=== PATIENT | female | born 1965 | race Caucasian/White ===

== ENCOUNTER → 2017-11-08 14:02 | Outpatient (CLI) | payer OTHER, SELFPAY ==
[2017-11-08 15:51] LABS: ALB/GLOB Ratio 1.1 RATIO (0.9-2.4); AST(SGOT) 43 U/L (15-37); Alanine Aminotransfer ALT/SGPT 55 U/L (12-78); Albumin, Serum 3.7 g/dL (3.4-5.0); Alkaline Phosphatase 56 U/L (45-117); Anion Gap 10 (5-15); BUN 10 mg/dL (7-18); BUN/Creat Ratio 10.3 RATIO (10-20); Calcium,Total 9.1 mg/dL (8.5-10.1); Chloride 102 mmol/L (98-107); Creatinine, Serum 0.97 mg/dL (0.55-1.02); EST Glomerular Filtration Rate 64 mL/min (>60); Est Glom Filt Rate - Afr Amer 77 mL/min (>60); Globulin 3.5 g/dL (2.2-4.2); Glucose 96 mg/dL (70-110); Potassium 4.1 mmol/L (3.5-5.1); Protein, Total 7.2 g/dL (6.4-8.2); Sodium Level 138 mmol/L (136-145)
[2017-11-08 15:55] LABS: Absolute Lymphocyte Count 2.75 X10^3/ul (0.83-4.51); Absolute Neutrophil Count 3.7 X10^3/uL (2.0-7.7); Basophil# 0.12 X10^3/uL; Basophil% 1.5 % (0-1); Eosinophils% 3.8 % (0-5); Hematocrit 44.1 % (37-47); Hemoglobin 14.9 g/dl (12.0-15.0); Lymphocyte # 2.75 X10^3/ul (4.0); Lymphocyte % 34.9 % (19-41); Mean Corp Hgb Conc 33.8 g/gl (32-36); Mean Corpuscular Hgb 32.7 pg (27.0-32.0); Mean Corpuscular Volume 96.9 fL (81-99); Mean Platelet Vol. 12.5 fl (6.2-12.0); Monocyte# 0.96 X10^3/uL; Monocyte% 12.2 % (0-10); Neutrophil # 3.71 X10^3/uL (2.7-7.7); Neutrophil % 47.1 % (47-70); Platelet Count 147 K/mm3 (150-450); RBC Distribution Width CV 12.8 % (11.6-14.6); RBC Distribution Width SD 44.3 fl (35.1-43.9); Red Blood Count 4.55 M/mm3 (4.2-5.4); White Blood Count 7.9 K/mm3 (4.4-11.0)
[2017-11-08 15:59] LABS: POSITIVE COUNT NO; POSITIVE DIFFERENTIAL NO; POSITIVE MORPHOLOGY NO
== END ==
PROVIDERS: Family Provider Family Medicine; PCP Family Medicine; Visit Provider Internal Medicine Rheumatology
DX: M06.00 Rheumatoid arthritis without rheumatoid factor, unspecified site (principal); M18.11 Unilateral primary osteoarthritis of first carpometacarpal joint, right hand; M47.897 Other spondylosis, lumbosacral region; K76.0 Fatty (change of) liver, not elsewhere classified; Z79.899 Other long term (current) drug therapy
CPT/HCPCS: 36415; 80053; 85025

== ENCOUNTER → 2017-12-04 07:15 | Outpatient (CLI) | payer OTHER, SELFPAY ==
--- NOTE | 2017-12-04 10:17 | NEURO ---
NCS and/or EMG Patient Report Ordering Doctor: Stephon Wang DATE OF SERVICE: 12/04/17 This is a left upper extremity EMG and nerve conduction study performed on this 52-year-old female who had carpal tunnel surgery and thumb joint replacement surgery 2 years ago. She now has new nonspecific weakness and abnormal sensations in her left upper extremity which does not involve her hand. Symptoms have been present since approximately March 2017. Left upper extremity sensory and motor nerve conduction studies performed demonstrating mild prolongation of the median motor distal latency with preservation of amplitude and conduction velocity. Median sensory response is normal. The ulnar motor and sensory and radial sensory responses are normal. The median and ulnar F waves are normal. Left upper extremity needle electromyography is performed. Muscles evaluated included the first dorsal interosseous, abductor pollicis brevis, brachioradialis, biceps, triceps and deltoid muscles. All muscles demonstrated normal insertional activity with absence of pathologic spontaneous activity. Motor unit potential recruitment pattern and amplitude was normal in all muscles tested. Impression: There is mild prolongation of the median motor distal latency at the wrist consistent with carpal tunnel syndrome however this appears to be asymptomatic and is likely a chronic finding. There is no evidence of radiculopathy and the study is otherwise normal.
== END ==
PROVIDERS: Family Provider Family Medicine; PCP Family Medicine; Visit Provider Family Medicine
DX: R20.2 Paresthesia of skin (principal)
CPT/HCPCS: 95886; 95910

== ENCOUNTER → 2018-05-06 07:35 | Outpatient (CLI) | payer OTHER, SELFPAY ==
[2018-05-06 08:23] LABS: Absolute Lymphocyte Count 2.62 X10^3/ul (0.83-4.51); Absolute Neutrophil Count 3.7 X10^3/uL (2.0-7.7); Basophil# 0.05 X10^3/uL; Basophil% 0.7 % (0-1); Eosinophil# 0.14 X10^3/uL; Eosinophils% 1.9 % (0-5); Hematocrit 45.4 % (37-47); Hemoglobin 15.2 g/dl (12.0-15.0); Lymphocyte # 2.62 X10^3/ul (4.0); Lymphocyte % 35.8 % (19-41); Mean Corp Hgb Conc 33.5 g/gl (32-36); Mean Corpuscular Volume 98.5 fL (81-99); Mean Platelet Vol. 11.7 fl (6.2-12.0); Monocyte# 0.77 X10^3/uL; Monocyte% 10.5 % (0-10); Neutrophil # 3.71 X10^3/uL (2.7-7.7); Neutrophil % 50.7 % (47-70); Platelet Count 185 K/mm3 (150-450); RBC Distribution Width CV 13.6 % (11.6-14.6); Red Blood Count 4.61 M/mm3 (4.2-5.4); White Blood Count 7.3 K/mm3 (4.4-11.0)
[2018-05-06 08:24] LABS: POSITIVE COUNT NO; POSITIVE DIFFERENTIAL NO; POSITIVE MORPHOLOGY NO
[2018-05-06 08:59] LABS: AST(SGOT) 65 U/L (15-37); Alanine Aminotransfer ALT/SGPT 81 U/L (13-56); Albumin, Serum 3.8 g/dL (3.2-5.0); Alkaline Phosphatase 65 U/L (45-117); Anion Gap 9 (5-15); BUN 18 mg/dL (7-18); BUN/Creat Ratio 13.5 RATIO (10-20); Calcium,Total 9.6 mg/dL (8.5-10.1); Chloride 104 mmol/L (98-107); Creatinine, Serum 1.33 mg/dL (0.55-1.02); EST Glomerular Filtration Rate 44 mL/min (>60); Est Glom Filt Rate - Afr Amer 54 mL/min (>60); Globulin 3.7 g/dL (2.2-4.2); Glucose 147 mg/dL (74-106); Potassium 4.2 mmol/L (3.5-5.1); Protein, Total 7.5 g/dL (6.4-8.2); Sodium Level 139 mmol/L (136-145)
== END ==
PROVIDERS: Family Provider Family Medicine; PCP Family Medicine; Visit Provider Internal Medicine Rheumatology
DX: M06.00 Rheumatoid arthritis without rheumatoid factor, unspecified site (principal); K76.0 Fatty (change of) liver, not elsewhere classified; M18.11 Unilateral primary osteoarthritis of first carpometacarpal joint, right hand; M47.897 Other spondylosis, lumbosacral region; K21.0 Gastro-esophageal reflux disease with esophagitis; G47.33 Obstructive sleep apnea (adult) (pediatric); E11.9 Type 2 diabetes mellitus without complications; I10 Essential (primary) hypertension; E03.9 Hypothyroidism, unspecified; R51 Headache; Z79.899 Other long term (current) drug therapy
CPT/HCPCS: 36415; 80053; 85025

== ENCOUNTER 2018-07-09 12:06 | Observation (INO) | payer OTHER, SELFPAY ==
[2018-07-09] VITALS (12 sets, daily range): BP systolic 112–141; BP diastolic 67–119; PULSE 68–90; RESP 16–18; TEMP 36.6–37; O2SAT 94–99; BMI 43.0; BMI 43.1; BMI 42.7
--- NOTE | 2018-07-09 12:29 | EKG12_ITS ---
Test Reason : NEURO SYMPTOMS Blood Pressure : / mmHG Vent. Rate : 096 BPM Atrial Rate : 096 BPM P-R Int : 164 ms QRS Dur : 076 ms QT Int : 326 ms P-R-T Axes : 040 036 -15 degrees QTc Int : 411 ms Normal sinus rhythm Nonspecific T wave abnormality Abnormal ECG Confirmed by RONNELL LIMON, REESE ([id number]), city editor KEVAN JACOBS ([id number]) on 07/11/2018 1:53:05 PM Referred By: NOAH Confirmed By:REESE REYNAGA MD
--- NOTE | 2018-07-09 12:29 | CT_ITS ---
STUDY: CT BRAIN WITHOUT CONTRAST REASON FOR EXAM: Female, 52 years old. Weakness. Right facial droop. RADIATION DOSAGE (If Supplied By Facility): CTDIvol = ( 44.99 ) mGy, DLP = ( 796.11 ) mGycm TECHNIQUE: Transaxial CT imaging of the brain was performed without administration of intravenous contrast material. Individualized dose optimization techniques were used for this CT. COMPARISON: None. FINDINGS: Normal soft tissue structures. Normal calvarium. Normal size ventricles and extra-axial spaces for the patient's age. There is a 1.2 cm x 0.7 cm focal hypodensity in the posterior medial aspect of the right temporal lobe. This may represent a focal area of ischemia. Correlation with MRI is recommended for further evaluation. Normal basal ganglia and thalami. Normal brainstem. Normal cerebellum. There is no intracranial hemorrhage. There are no findings of an acute ischemic infarction. Normal visualized paranasal sinuses. CT/Brain/Head without Contrast IMPRESSION: Focal area of decreased attenuation in the posteromedial aspect of the right temporal lobe as described. Correlation with MRI is recommended for further evaluation. Electronically Signed: Primitivo Pérez MD at 13:01 EDT Tel [phone], Service support ,
[2018-07-09 12:42] LABS: Absolute Lymphocyte Count 1.64 X10^3/ul (0.83-4.51); Absolute Neutrophil Count 3.6 X10^3/uL (2.0-7.7); Basophil# 0.07 X10^3/uL; Basophil% 1.2 % (0-1); Eosinophil# 0.05 X10^3/uL; Eosinophils% 0.8 % (0-5); Hematocrit 46.2 % (37-47); Hemoglobin 15.8 g/dl (12.0-15.0); Lymphocyte # 1.64 X10^3/ul (4.0); Lymphocyte % 27.4 % (19-41); Mean Corp Hgb Conc 34.2 g/gl (32-36); Mean Corpuscular Hgb 33.6 pg (27.0-32.0); Mean Corpuscular Volume 98.3 fL (81-99); Mean Platelet Vol. 11.3 fl (6.2-12.0); Monocyte# 0.61 X10^3/uL; Monocyte% 10.2 % (0-10); Neutrophil # 3.59 X10^3/uL (2.7-7.7); Neutrophil % 59.9 % (47-70); Platelet Count 167 K/mm3 (150-450); RBC Distribution Width CV 12.6 % (11.6-14.6); RBC Distribution Width SD 44.7 fl (35.1-43.9)
[2018-07-09 12:46] LABS: POSITIVE COUNT NO; POSITIVE DIFFERENTIAL NO; POSITIVE MORPHOLOGY NO
--- NOTE | 2018-07-09 12:46 | RAD_ITS ---
STUDY: X-RAY CHEST REASON FOR EXAM: Female, 52 years old. Weakness. Left facial droop. TECHNIQUE: Single AP portable view of the chest. COMPARISON: Comparison is made with prior study dated October 22, 2013. FINDINGS: EKG electrodes are seen. Stable blunting of the right costophrenic angle with minimal right basilar atelectasis. This is unchanged. There is no demonstrated pleural abnormality. Normal size heart. Normal mediastinum and yandel. Normal visualized pulmonary arteries. There is atherosclerotic tortuosity of the aortic arch and descending thoracic aorta. Normal visualized thoracic spine. Normal visualized ribs, clavicles, and shoulders. There is no demonstrated abnormality of the visualized soft tissue structures of the upper abdomen. RAD/Chest 1 View IMPRESSION: Stable pleural parenchymal changes at the right lung base. Electronically Signed: Primitivo Pérez MD at 13:02 EDT Tel [phone], Service support ,
[2018-07-09 12:52] LABS: Partial Thromboplast Time 26.7 Seconds (24.1-36.2); Prothrombin Time (Protime)PT. 12.7 SECONDS (11.7-14.9)
[2018-07-09 12:59] LABS: Anion Gap 8 (5-15); BUN 15 mg/dL (7-18); BUN/Creat Ratio 12.1 RATIO (10-20); Chloride 106 mmol/L (98-107); Creatinine, Serum 1.24 mg/dL (0.55-1.02); EST Glomerular Filtration Rate 48 mL/min (>60); Est Glom Filt Rate - Afr Amer 58 mL/min (>60); Estimated Creatinine Clearance 51.61 ml/min; Glucose 122 mg/dL (74-106); Potassium 4.4 mmol/L (3.5-5.1); Sodium Level 137 mmol/L (136-145)
--- NOTE | 2018-07-09 13:43 | ED.VISSUMM ---
- ER Visit Summary Date of Service: 07/09/18 Chief Complaint: Abnormal sensations History of Present Illness: The patient is a 52 F referred to the emergency department for possible stroke. At around 9-930 this morning, the patient was getting coffee at work very she says her neck dropped. It sounds like her neck flexed down spontaneously. She then complained of some abnormal sensations to her forehead in the midline. She also feels fullness to her face. Her PCP called and said that he was concerned for some right sided facial droop. Patient says she never had this before. Nothing seemed to bring it on or make it worse. Nothing seems to make it better. She has a history of high blood sugars but was not formally diagnosed with diabetes. She also reports hypertension, RA, and hypothyroidism. She noted her blood pressures were in the 170s systolic when this happened Physical Examination: Afebrile and vital signs unremarkable. No acute distress. Alert and oriented. NIH stroke scale is 0. Heart regular rate and rhythm. Lungs clear bilaterally. Skin normal in color. Test Results: EKG showed sinus rhythm at a rate of 96 with nonspecific T wave changes. Chest x-ray showed stable chronic changes. CT head showed decreased attenuation in the right temporal region. CBC unremarkable. BMP, coags, troponin unremarkable. Emergency Department Course and Treatment: Patient had a stroke scale of 0. No indication for stroke team or TPA. Patient had IV access and a heart attack monitor was started. Her workup was fairly unremarkable except for the decreased attenuation in the right temporal lobe. This was discussed with the radiologist who read the images. He did not believe this was acute or consistent with her symptoms that started today this morning. Patient will need further evaluation for stroke including likely MRI and MRA. Patient will be discussed with the hospitalist and admitted for further care. On reevaluation, no new or worsening symptoms. Treatment Plan: As above Disposition: Admission Impression: 1. Ischemic stroke suspected This note was generated with [employer] dictation software. It may contain incorrect words, spelling, and punctuation that were not noted in review of the chart prior to signing ED Disposition - Plan for ED Patient: Chief Complaint: Neuro S/Sx Referrals: Stephon Wang MD [Primary Care Provider] -
--- NOTE | 2018-07-09 14:10 | NURSING ---
dr jason reyes
--- NOTE | 2018-07-09 14:12 | HP.PCM_ITS ---
Problem List (1) TIA (transient ischemic attack) Status: Acute History of Present Illness Date of Admission: 07/09/18 Chief Complaint: loss of neck tone and parasthesia The patient is a 52 year old F with past medical history of benign essential hypertension, rheumatoid arthritis and hypothyroidism as well as borderline diabetes mellitus. She was admitted by the ED on 07/09/2018 with a complaint of brief loss of tone in her neck and numbness over her face. Patient was at work when she suddenly noticed that her neck had become flaccid and her head dropped to her chin. She also noticed that she had numbness over her head, spreading down to her face. This lasted only seconds. She went to the nurse at her workplace and her blood pressure was checked and she said her systolic was in the 170s. She therefore left work and went home and called her primary care doctor went to see him in his office. In his office her blood pressure was down to the 130s systolic and her symptoms had resolved. However out of an abundance of caution, she was sent to the ED by her primary care doctor to rule out a stroke. Patient has never had a stroke before and denied any blurred vision, loss of consciousness, any weakness in any focal extremity, any fever or chills, any chest pain, any shortness of breath, and palpitations, any abdominal pain, any diarrhea vomiting. 12 point review of systems otherwise negative. In the ED, vitals were noted to be temperature of 98.5 Fahrenheit, pulse rate of 84 and respiratory rate of 18 with blood pressure 130/119. BMP was only significant for creatinine of 1.24 which is what her baseline initial troponin was negative. CBC was unremarkable. CT of the brain without contrast showed a focal area of decreased attenuation in the posterior medial aspect of the right temporal lobe. She has been admitted to be worked up for stroke. [] Past Medical History Past Medical History (Chronic Problems): Chronic Problems Tobacco use disorder (Chronic) Rheumatoid arthritis (Chronic) Obesity (Chronic) Hypothyroidism (Chronic) Benign hypertension (Chronic) Allergies fluorescein Allergy (Severe, Verified 07/09/18 12:08) Anaphylaxis hydroxychloroquine sulfate [From Plaquenil] Allergy (Verified 07/09/18 12:08) Angioedema Home Medications: Ambulatory Orders Medication Instructions Recorded Etanercept [Enbrel] 50 mg SQ [place] 06/17/14 Levothyroxine [Synthroid] 75 mcg PO DAILY 06/17/14 Metformin HCl [Glucophage] 500 mg PO BIDCM 06/17/14 Bisoprolol Fumarate [Zebeta] 10 mg PO DAILY 07/09/18 Cholecalciferol (Vitamin D3) 2,000 units PO DAILY 07/09/18 [Vitamin D3] Clonidine HCl 0.1 - 0.2 mg PO DAILY 07/09/18 Cyclobenzaprine [Flexeril] 10 mg PO PRN PRN 07/09/18 Peg 400/Hypromellose/Glycerin 1 drop EACH EYE DAILY 07/09/18 [Visine Tears Drops] Prednisone 5 mg PO DAILY PRN 07/09/18 Spironolactone 100 mg PO DAILY 07/09/18 Surgical History: tonsillectomy, - - back surgery Psychiatric History: No pertinent psych hx 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 Dyspnea, Syncope Respiratory: Denies: Cough, Shortness of breath at rest, Sputum production Gastrointestinal: Denies: Abdominal Pain, Nausea, Vomiting Genitourinary: Denies: Dysuria Musculoskeletal: Denies: Joint Pain, Joint Tenderness, Muscle pain, Neck Pain Skin: Denies: Rash, Wounds Neurological: Denies: Double vision, Slurred speech, Focal weakness, Headaches, Numbness, Tingling, Tremor Psychiatric: Denies: Anxiety, Depression, Homicidal Ideations, Suicidal Ideations Hematologic/ Lymphatic: Denies: Easy Bruising, Easy Bleeding VTE Information - Inpt Only VTE Present on Admission: No VTE Mechan Device Prophylaxis: SCD's VTE Pharm Prophylaxis ordered?: Yes Patient Problems: Active and Suspected Problems TIA (transient ischemic attack) (Acute) - Physical Exam General: Alert, Oriented x3, Cooperative HEENT: Atraumatic, PERRLA, EOMI, Normocephalic Oral: Moist Mucosa Neck: Supple, No JVD, Negative Carotid Bruits, No Nodes, No Nuchal Rigidity Lungs: Clear to auscultation, Normal air movement, No rhonchi, No wheeze, No rales Cardiovascular: Regular rate, Regular Rhythm, Normal S1, Normal S2, No murmurs Abdomen: Bowel Sounds Present, Soft, Non Tender, Non-Distended, No Hepato- splenomegaly Extremities: No clubbing, No cyanosis, No edema, Capillary Refill Less than 3 Seconds Skin: No rashes, No breakdown Musculoskeletal: No Tenderness to Palpation of Joints or Extremities Lymphatic: No Cervical, Supraclavicular, or Inguinal Adenopathy Neurological: Cranial nerves II-XII grossly intact, Deep Tendon Reflexes 2+/4 and Symmetrical, Neuro grossly intact, Motor Exam 5/5 strength throughout, Sensory exam intact to light touch and pain, - - NIHSS- 0 Psych/Mental Status: Normal Affect, Appropriate, Alert and oriented to time, place, person, mood and affect Vital Signs Temp Pulse Resp BP Pulse Ox 98.5 F 84 18 130/119 H 96 07/09/18 12:08 07/09/18 13:43 07/09/18 13:43 07/09/18 13:43 07/09/18 13:43 Oxygen Delivery Method Room Air Weight: 275 lb 2.19 oz Body Mass Index (BMI) 43.0 Laboratory Tests Past 24 Hrs 07/09/18 07/09/18 07/09/18 12:30 12:30 12:30 WBC 6.0 RBC 4.70 Hgb 15.8 H Hct 46.2 MCV 98.3 MCH 33.6 H MCHC 34.2 RDW 12.6 RDW Differential 44.7 H Plt Count 167 MPV 11.3 Immature Gran % (Auto) 0.500 Neut % (Auto) 59.9 Lymph % (Auto) 27.4 Reynolds % (Auto) 10.2 H Eos % (Auto) 0.8 Baso % (Auto) 1.2 H Absolute Neuts (auto) 3.6 Absolute Lymphs (auto) 1.64 Total Counted Not Reportable PT 12.7 INR 1.0 APTT 26.7 Sodium 137 Potassium 4.4 Chloride 106 Carbon Dioxide 23.0 Anion Gap 8 BUN 15 Creatinine 1.24 H Estim Creat Clear Calc 51.61 Est GFR (MDRD) Af Amer 58 L Est GFR (MDRD) Non-Af 48 L BUN/Creatinine Ratio 12.1 Glucose 122 H Calcium 9.0 Troponin I < 0.[address] 07/09/18 12:29 IMPRESSION: Focal area of decreased attenuation in the posteromedial aspect of the right temporal lobe as described. Correlation with MRI is recommended for further evaluation. Electronically Signed: Primitivo Pérez MD at 13:01 EDT Tel [phone], Service support , Chest X-Ray 07/09/18 12:46 IMPRESSION: Stable pleural parenchymal changes at the right lung base. Electronically Signed: Primitivo Pérez MD at 13:02 EDT Tel [phone], Service support , Assessment/Plan All Active Problems TIA (transient ischemic attack) (Acute) 52-year-old female presenting with an brief episode of loss of tone of her neck and paresthesia of the head and face which lasted for seconds. 1. TIA * doesnt have a previous history of stroke * symptoms lasted for seconds * EKG showed NSR and nonspecific T wave changes * CT brain showed focal area of decreased attenuation in posteromedial aspect of right temporal lobe * admit to PCU for stroke workup * MRI of brain * CTA of head and neck * keep NPO until she passes bedside dysphagia test * neuro consult * PT/OT * maintain BP<130/80 * check A1c, lipid panel; 2D echo * 2. Benign essential hypertension * BP was 130/119 on admission * will resume BP meds- spironolactone, clonidine and bisoprolol * 3. Hypothyroidism: on synthroid 4. Rheumatoid arthritis * stable. On etanercept * 5. Borderline diabetes mellitus * says she has been told she has borderline DM, and is on metformin 500mg bid. * will check A1C * 6. Alcohol abuse * Drinks a small bottle of wine daily and has been doing so for the past 4 years. States he started doing it because it helps with her pain. * Alcohol withdrawal protocol with Ativan. * Monitor CIWA score. * 7. Nicotine dependence * Smokes 1 pack of cigarette daily. Counseled to quit especially in light of suspected TIA versus stroke. * nicotine patch 14mg daily * 8. CKD 3: Cr is 1.24, which is around her baseline. Will monitor 9. DVT prophylaxis: heparin Code status: full code * patient counselled about different types of code status, namely full code, DNRCC and DNRCCA. Patient elects to be full code. TOtal face to face time-17 mins * Code Visit OBSV E&M: 00678 Initial observation care L3 Procedures: 03192 Advncd Care Plan 30 Min
--- NOTE | 2018-07-09 14:14 | NURSING ---
dr gomez in er
--- NOTE | 2018-07-09 14:16 | NURSING ---
PCU [facility]
--- NOTE | 2018-07-09 15:04 | ECHOCS_ITS ---
Reason For Study: Emboli Procedure This was a 2D Doppler, Color Flow transthoracic echocardiogram. The study was technically difficult. Exam performed portable in patient room. Left Ventricle Normal size and thickness. The estimated ejection fraction is 65 %. Normal diastology for age. No regional wall motion abnormalities noted. Right Ventricle Normal size and thickness. Normal systolic function. Atria Normal left atrium. Normal right atrium. Normal atrial septum. Mitral Valve The mitral valve is structurally normal. No prolapse or stenosis seen. Tricuspid Valve Normal tricuspid valve. Trivial tricuspid valve insufficiency. Right ventricular systolic pressure estimated to be 33 mmHg. Aortic Valve Trisinus/trileaflet aortic valve. Normal aortic valve. Pulmonic Valve The pulmonic valve is not well visualized. Great Vessels Normal aortic root. Normal arch. Normal inferior vena cava. Inferior vena cava collapse with sniff. Pericardium/Pleural No pericardial effusion. Medication Performed a rapid injection of agitated mix of 9 cc saline and 1cc air to assess for atrial septal defect. Definity0.3ml given slow IV push to enhance endocardial definition. MMode/2D Measurements & Calculations LVIDd: 4.6 cm IVSd: 1.1 cm Ao root diam: 3.2 cm LVIDs: 2.9 cm LVPWd: 0.83 cm LA dimension: 3.4 cm RVDd: 2.9 cm FS: 36.7 % LAV(MOD-bp): 46.4 ml LVAd ap4: 30.4 cm2 SV(MOD-sp4): 67.5 ml LAV(MOD-bp) Indexed: 20.0 ml/m2 EDV(MOD-sp4): 98.3 ml LAV(MOD-sp2): 49.4 ml EDV(sp4-el): 98.8 ml LAV(MOD-sp4): 42.3 ml LVAs ap4: 13.9 cm2 ESV(MOD-sp4): 30.8 ml ESV(sp4-el): 31.3 ml EF(MOD-sp4): 68.7 % EF(sp4-el): 68.3 % SV(sp4-el): 67.4 ml LA A4 area: 16.1 cm2 RA A4 area: 10.5 cm2 Doppler Measurements & Calculations MV E max aiden: 75.0 cm/sec Lat Peak E' Aiden: 11.2 cm/sec Med Peak E' Aiden: 7.4 cm/sec MV A max aiden: 81.1 cm/sec E/E' lat: 6.7 E/E' med: 10.2 MV E/A: 0.92 Ao V2 max: 134.2 cm/sec LV V1 max: 105.3 cm/sec PA V2 max: 92.5 cm/sec Ao max P.2 mmHg LV V1 max P.4 mmHg Ao V2 mean: 97.6 cm/sec Ao mean P.1 mmHg Ao V2 VTI: 27.1 cm TR max aiedn: 264.5 cm/sec TR max P.0 mmHg Interpretation Summary The estimated ejection fraction is 65 %. Normal diastology for age. Trivial tricuspid valve insufficiency. Right ventricular systolic pressure estimated to be 33 mmHg. Compared to echo report dated 12/30/2009, no appreciable changes noted. The study was technically difficult. Contrast injection was performed. Ordering Physician: Danae Tellez Referring Physician: Stephon Wang Performed By: Caterina Chase RDCS, RVT
--- NOTE | 2018-07-09 15:04 | MRI_ITS ---
STUDY: MRI BRAIN WITHOUT CONTRAST REASON FOR EXAM: Female, [address] Syncope. Headache. TECHNIQUE: Standardized multiplanar fat and water weighted pulse sequences were obtained. COMPARISON: CT head 07/09/2018. FINDINGS: Normal size of the ventricles and extra-axial spaces for the patient's age. Normal white matter tracts of the supratentorial brain. There is no extra-axial fluid accumulation. Normal flow voids within the major intracranial circulation suggesting patency by spin echo criteria. Signal abnormality is noted in the right temporal lobe lateral to the right thalamic nucleus with signal hypointensity on T1 and hyperintensity on T2-weighted imaging. This is associated with mild surrounding T2 signal hyperintensity on FLAIR imaging. This finding is most consistent with a remote lacunar infarct, less likely dilated perivascular space. This corresponds to the CT finding. There is no evidence of acute ischemia. Normal sella turcica, pituitary gland, infundibular stalk, optic chiasm and hypothalamus. Normal tectal plate and pineal gland. Normal midbrain, ashley and medulla. Normal cerebellum. Normal basal cisterns. Normal bilateral temporal bones. Normal bilateral internal auditory canals. No demonstrated orbital abnormality, within the constraints of a routine brain study. Normal visualized paranasal sinuses. Normal calvarium and skull base. Normal visualized soft tissue structures. Normal visualized upper cervical spine. MRI/Brain without Contrast IMPRESSION: Signal abnormality in the right temporal lobe corresponding to the CT finding is most consistent with a remote lacunar infarct. Electronically Signed: Mary Powers MD at 20:58 EDT Tel , Service support ,
--- NOTE | 2018-07-09 15:04 | CT_ITS ---
STUDY: CTA OF THE BRAIN REASON FOR EXAM: Female, 52 years old. TIA/ CVA, weakness. Hypertension RADIATION DOSAGE (If Supplied By Facility): CTDIvol = ( 19.40 ) mGy, DLP = ( 803.87 ) mGycm TECHNIQUE: CT angiography was performed with a multi-detector CT scanner. Data acquisition was obtained from the skull base through the vertex following intravenous administration of 100 ml of Isovue 370. MIP images were reconstructed from the axial data set. Post-processing of the angiographic images was performed, with multiplanar reformation and 3D reconstruction. Individualized dose optimization techniques were used for this CT. COMPARISON: CT Brain Jul 09 2018 12:45pm FINDINGS: Normal bilateral petrous carotid arteries. There is calcified plaque formation of the right cavernous carotid artery, without a cross-sectional luminal stenosis. There is calcified plaque formation of the left cavernous carotid artery, without a cross-sectional luminal stenosis. Normal right A1 segments of the anterior cerebral artery. Normal left A1 segments of the anterior cerebral artery. Normal intact anterior communicating artery (ACOM). Normal bilateral A2 segments of the anterior cerebral arteries. Normal right M1 and M2 segments of the middle cerebral arteries, with a normal M1 bifurcation. Normal left M1 and M2 segments of the middle cerebral arteries, with a normal M1 bifurcation. There is non-visualization of the right posterior communicating artery (PCOM). There is non-visualization of the left posterior communicating artery (PCOM). Normal bilateral vertebral arteries. Normal basilar artery with a normal basilar bifurcation. The visualized bilateral superior cerebellar (SCA) arteries are normal. Normal bilateral P1, P2 and visualized P3 segments of the posterior cerebral arteries. There is no demonstrated aneurysm of the [place]. There is no demonstrated abnormality of the visualized brain. IMPRESSION: There is calcified plaque formation of the right cavernous carotid artery, without a cross-sectional luminal stenosis. There is calcified plaque formation of the left cavernous carotid artery, without a cross-sectional luminal stenosis. Electronically Signed: Tian Booth MD at 19:26 EDT , Service support , STUDY: CTA NECK WITH CONTRAST REASON FOR EXAM: Female, 52 years old. TIA/ CVA, weakness. Hypertension RADIATION DOSAGE (If Supplied By Facility): CTDIvol = ( 19.40 ) mGy, DLP = ( 803.87 ) mGycm TECHNIQUE: CT angiography with multi-detector data acquisition was performed from the aortic arch to the skull base following intravenous administration of 100mL ml of Isovue 370 contrast. MIP images were reconstructed from the axial data set. Post-processing of the angiographic images was performed, with multiplanar reformation and 3D reconstruction. Individualized dose optimization techniques were used for this CT. COMPARISON: None. FINDINGS: AORTIC ARCH: Normal visualized aortic arch. Normal origins of the brachiocephalic, left common carotid, and left subclavian arteries. RIGHT CAROTID ARTERIES: Normal right common carotid artery (CCA). Normal right common carotid bulb. Normal origin of the right internal carotid (ICA) artery without a hemodynamically significant stenosis. Normal visualized cervical portion of the right internal carotid artery. Normal origin of the right external carotid artery (ECA). LEFT CAROTID ARTERIES: Normal left common carotid artery (CCA). Normal left common carotid bulb. Normal origin of the left internal carotid (ICA) artery without a hemodynamically significant stenosis. Normal visualized cervical portion of the left internal carotid artery. Normal origin of the left external carotid artery (ECA). VERTEBRAL ARTERIES: Normal bilateral vertebral arteries. CT/CTA Neck W/WO Contrast IMPRESSION: Normal bilateral cervical carotid and vertebral arteries. Electronically Signed: Tian Booth MD at 19:26 EDT , Service support ,
--- NOTE | 2018-07-09 15:04 | CT_ITS ---
STUDY: CTA OF THE BRAIN REASON FOR EXAM: Female, 52 years old. TIA/ CVA, weakness. Hypertension RADIATION DOSAGE (If Supplied By Facility): CTDIvol = ( 19.40 ) mGy, DLP = ( 803.87 ) mGycm TECHNIQUE: CT angiography was performed with a multi-detector CT scanner. Data acquisition was obtained from the skull base through the vertex following intravenous administration of 100 ml of Isovue 370. MIP images were reconstructed from the axial data set. Post-processing of the angiographic images was performed, with multiplanar reformation and 3D reconstruction. Individualized dose optimization techniques were used for this CT. COMPARISON: CT Brain Jul 09 2018 12:45pm FINDINGS: Normal bilateral petrous carotid arteries. There is calcified plaque formation of the right cavernous carotid artery, without a cross-sectional luminal stenosis. There is calcified plaque formation of the left cavernous carotid artery, without a cross-sectional luminal stenosis. Normal right A1 segments of the anterior cerebral artery. Normal left A1 segments of the anterior cerebral artery. Normal intact anterior communicating artery (ACOM). Normal bilateral A2 segments of the anterior cerebral arteries. Normal right M1 and M2 segments of the middle cerebral arteries, with a normal M1 bifurcation. Normal left M1 and M2 segments of the middle cerebral arteries, with a normal M1 bifurcation. There is non-visualization of the right posterior communicating artery (PCOM). There is non-visualization of the left posterior communicating artery (PCOM). Normal bilateral vertebral arteries. Normal basilar artery with a normal basilar bifurcation. The visualized bilateral superior cerebellar (SCA) arteries are normal. Normal bilateral P1, P2 and visualized P3 segments of the posterior cerebral arteries. There is no demonstrated aneurysm of the [place]. There is no demonstrated abnormality of the visualized brain. IMPRESSION: There is calcified plaque formation of the right cavernous carotid artery, without a cross-sectional luminal stenosis. There is calcified plaque formation of the left cavernous carotid artery, without a cross-sectional luminal stenosis. Electronically Signed: Tian Booth MD at 19:26 EDT , Service support , STUDY: CTA NECK WITH CONTRAST REASON FOR EXAM: Female, 52 years old. TIA/ CVA, weakness. Hypertension RADIATION DOSAGE (If Supplied By Facility): CTDIvol = ( 19.40 ) mGy, DLP = ( 803.87 ) mGycm TECHNIQUE: CT angiography with multi-detector data acquisition was performed from the aortic arch to the skull base following intravenous administration of 100mL ml of Isovue 370 contrast. MIP images were reconstructed from the axial data set. Post-processing of the angiographic images was performed, with multiplanar reformation and 3D reconstruction. Individualized dose optimization techniques were used for this CT. COMPARISON: None. FINDINGS: AORTIC ARCH: Normal visualized aortic arch. Normal origins of the brachiocephalic, left common carotid, and left subclavian arteries. RIGHT CAROTID ARTERIES: Normal right common carotid artery (CCA). Normal right common carotid bulb. Normal origin of the right internal carotid (ICA) artery without a hemodynamically significant stenosis. Normal visualized cervical portion of the right internal carotid artery. Normal origin of the right external carotid artery (ECA). LEFT CAROTID ARTERIES: Normal left common carotid artery (CCA). Normal left common carotid bulb. Normal origin of the left internal carotid (ICA) artery without a hemodynamically significant stenosis. Normal visualized cervical portion of the left internal carotid artery. Normal origin of the left external carotid artery (ECA). VERTEBRAL ARTERIES: Normal bilateral vertebral arteries. CT/CTA Head W/WO Contrast IMPRESSION: Normal bilateral cervical carotid and vertebral arteries. Electronically Signed: Tian Booth MD at 19:26 EDT , Service support ,
[2018-07-09 16:37] LABS: Cholesterol 249 mg/dL (200); High Density Lipoprotein 44 mg/dL; Triglycerides 265 mg/dL; Very Low Density Lipoprotein 53 mg/dL (5-40)
[2018-07-09 17:31] LABS: Bedside Glucose 107 mg/dL (70-110)
--- NOTE | 2018-07-09 19:34 | NURSING ---
Patient off floor at this time - taken over and report given in room.
[2018-07-09] MEDS: Atorvastatin Calcium 80 MG Tablet PO (21:13)
[2018-07-09 21:51] LABS: Bedside Glucose 136 mg/dL (70-110)
[2018-07-10 00:45] VITALS: BP 112/64; PULSE 78; RESP 16; TEMP 36.7; O2SAT 98
[2018-07-10 03:00] VITALS: PULSE 70
[2018-07-10 04:40] VITALS: BP 114/71; PULSE 68
[2018-07-10 04:44] VITALS: BP 114/71; PULSE 68; RESP 16; TEMP 36.6; O2SAT 98
[2018-07-10 06:13] LABS: Absolute Lymphocyte Count 2.46 X10^3/ul (0.83-4.51); Absolute Neutrophil Count 2.5 X10^3/uL (2.0-7.7); Basophil# 0.04 X10^3/uL; Basophil% 0.7 % (0-1); Eosinophil# 0.11 X10^3/uL; Eosinophils% 1.9 % (0-5); Hematocrit 46.2 % (37-47); Hemoglobin 15.6 g/dl (12.0-15.0); Lymphocyte # 2.46 X10^3/ul (4.0); Mean Corp Hgb Conc 33.8 g/gl (32-36); Mean Corpuscular Hgb 33.6 pg (27.0-32.0); Mean Corpuscular Volume 99.6 fL (81-99); Mean Platelet Vol. 11.6 fl (6.2-12.0); Monocyte# 0.55 X10^3/uL; Monocyte% 9.6 % (0-10); Neutrophil # 2.54 X10^3/uL (2.7-7.7); Neutrophil % 44.5 % (47-70); Platelet Count 84 K/mm3 (150-450); RBC Distribution Width CV 13.1 % (11.6-14.6); RBC Distribution Width SD 47.4 fl (35.1-43.9); Red Blood Count 4.64 M/mm3 (4.2-5.4); White Blood Count 5.7 K/mm3 (4.4-11.0)
[2018-07-10 06:23] LABS: POSITIVE COUNT NO; POSITIVE DIFFERENTIAL NO; POSITIVE MORPHOLOGY NO
[2018-07-10] MEDS: Levothyroxine 75 MCG Tablet PO (06:43)
[2018-07-10 06:55] LABS: Bedside Glucose 139 mg/dL (70-110)
[2018-07-10 07:29] VITALS: PULSE 86
[2018-07-10 07:45] LABS: Anion Gap 9 (5-15); BUN 15 mg/dL (7-18); Calcium,Total 8.7 mg/dL (8.5-10.1); Chloride 105 mmol/L (98-107); Creatinine, Serum 1.07 mg/dL (0.55-1.02); EST Glomerular Filtration Rate 57 mL/min (>60); Est Glom Filt Rate - Afr Amer 69 mL/min (>60); Estimated Creatinine Clearance 57.58 ml/min; Glucose 135 mg/dL (74-106); Potassium 4.2 mmol/L (3.5-5.1); Sodium Level 137 mmol/L (136-145)
[2018-07-10 08:21] VITALS: BP 128/71; PULSE 77; RESP 16; TEMP 36.2; O2SAT 95
[2018-07-10] MEDS: Aspirin 81 MG TAB.CHEW PO (08:26)
--- NOTE | 2018-07-10 09:14 | DCINST_ITS ---
- Discharge Diagnoses Current Active Problems: Current Active and Chronic Problems TIA (transient ischemic attack) (Acute) You will use the following diet at home:: Calorie/Carbohydrate Controlled (specify 1200, 1400, etc) Discharge Activity: Return to Normal Activity Allergies/Adverse Reactions: Allergies fluorescein Allergy (Severe, Verified 07/09/18 12:08) Anaphylaxis hydroxychloroquine sulfate [From Plaquenil] Allergy (Verified 07/09/18 12:08) Angioedema Medications to take at Discharge Etanercept [Enbrel] 50 mg SQ [facility] 06/17/14 Levothyroxine [Synthroid] 75 mcg PO DAILY 06/17/14 Metformin HCl [Glucophage] 500 mg PO BIDCM 06/17/14 Bisoprolol Fumarate [Zebeta (Beta Rommel)] 10 mg PO DAILY 07/09/18 Cholecalciferol (Vitamin D3) [Vitamin D3] 2,000 units PO DAILY 07/09/18 Clonidine HCl 0.1 - 0.2 mg PO DAILY 07/09/18 Cyclobenzaprine [Flexeril] 10 mg PO PRN PRN 07/09/18 Peg 400/Hypromellose/Glycerin [Visine Tears Drops] 1 drop EACH EYE DAILY 07/09/18 Prednisone 5 mg PO DAILY PRN 07/09/18 Spironolactone 100 mg PO DAILY 07/09/18 Aspirin [Aspirin, Baby] 81 mg PO DAILY@0800 #90 tab.chew 07/10/18 Atorvastatin Calcium 40 mg PO DAILY #90 tablet 07/10/18 The following prescriptions were given: Aspirin [Aspirin, Baby] 81 mg PO DAILY@0800 #90 tab.chew Atorvastatin Calcium 40 mg PO DAILY #90 tablet Primary Care Physician: Stephon Wang MD [Primary Care Provider] - Please follow up with your Primary Care Physician in: [place] 5-7 DAYS Test Results: Test results from this visit will be discussed in further detail at your follow- up appointment, if applicable. Proposed Discharge Date: 07/10/18
--- NOTE | 2018-07-10 09:15 | PCM.DC.SUM ---
Discharge Date and Diagnosis - Problem List Patient Problems: Active and Suspected Problems TIA (transient ischemic attack) (Acute) Date of Admission: 07/09/18 Date of Discharge: 07/10/18 - Primary Discharge Diagnosis Active and Suspected Problems TIA (transient ischemic attack) (Acute) - Secondary Discharge Diagnosis Chronic Problems Tobacco use disorder (Chronic) Rheumatoid arthritis (Chronic) Obesity (Chronic) Hypothyroidism (Chronic) Benign hypertension (Chronic) Hospital Course and Treatment Imaging Results: Clinical Impression(s) from Imaging Studies Brain CT 07/09/18 12:29 IMPRESSION: Focal area of decreased attenuation in the posteromedial aspect of the right temporal lobe as described. Correlation with MRI is recommended for further evaluation. Electronically Signed: Primitivo Pérez MD at 13:01 EDT Tel [phone], Service support , Chest X-Ray 07/09/18 12:46 IMPRESSION: Stable pleural parenchymal changes at the right lung base. Electronically Signed: Primitivo Pérez MD at 13:02 EDT Tel [phone], Service support , Brain MRI 07/09/18 15:04 IMPRESSION: Signal abnormality in the right temporal lobe corresponding to the CT finding is most consistent with a remote lacunar infarct. Electronically Signed: Mary Powers MD at 20:58 EDT Tel , Service support , Head CTA 07/09/18 15:04 IMPRESSION: Normal bilateral cervical carotid and vertebral arteries. Electronically Signed: Tian Booth MD at 19:26 EDT , Service support , Neck CTA 07/09/18 15:04 IMPRESSION: Normal bilateral cervical carotid and vertebral arteries. Electronically Signed: Tian Booth MD at 19:26 EDT , Service support , Summary of Care Provided: The patient is a 52 year old F who presented with loss of neck tone and parasthesia 1. Transient ischemic attack. Patient was placed in a monitored bed underwent subsequent evaluation with an MRI which only showed Signal abnormality in the right temporal lobe corresponding to the CT finding is most consistent with a remote lacunar infarct. Patient was discharged home on aspirin as well as statin therapy 2. History of panic attacks patient was instructed to follow-up with PCP for possible initiation of SSRI 3. Hypertension-blood pressure controlled, home medications continued with dose adjustment as needed 4. Hypothyroidism-patient is on levothyroxine home dose continued 5. Morbid obesity with BMI of 42; lifestyle modification including weight loss advised 6. GERD with history of nisin fundoplication 7. Rheumatoid arthritis patient is stable on etanercept 8. Acute kidney injury secondary to dehydration resolved with rehydration 9. Tobacco dependence counseled on cessation, offered nicotine patch for tobacco cravings 10. DVT prophylaxis SC heparin Physical examination at the time of discharge; GENERAL: cooperative and in no apparent distress. HEENT: Atraumatic moist oral mucosa EYES; Anicteric, Normal Conjuctiva NECK; supple, normal thyroid, no distended JVD. RESPIRATORY: Clear to auscultation bilaterally, CARDIOVASCULAR: Regular S1 S2, no audible murmurs GI: soft, non-tender, normoactive bowel sounds, : No Renal angle tenderness; No arroyo EXTREMITIES: No edema, no clubbing, no cyanosis. NEURO: Awake; no lateralizing signs. SKIN: No Rash PSYCH; Normal affect Time spent on discharge; 35 minutes Discharge Activity: Return to Normal Activity Home Medications: Medications to take at Discharge Etanercept [Enbrel] 50 mg SQ [facility] 06/17/14 Levothyroxine [Synthroid] 75 mcg PO DAILY 06/17/14 Metformin HCl [Glucophage] 500 mg PO BIDCM 06/17/14 Bisoprolol Fumarate [Zebeta (Beta Rommel)] 10 mg PO DAILY 07/09/18 Cholecalciferol (Vitamin D3) [Vitamin D3] 2,000 units PO DAILY 07/09/18 Clonidine HCl 0.1 - 0.2 mg PO DAILY 07/09/18 Cyclobenzaprine [Flexeril] 10 mg PO PRN PRN 07/09/18 Peg 400/Hypromellose/Glycerin [Visine Tears Drops] 1 drop EACH EYE DAILY 07/09/18 Prednisone 5 mg PO DAILY PRN 07/09/18 Spironolactone 100 mg PO DAILY 07/09/18 Aspirin [Aspirin, Baby] 81 mg PO DAILY@0800 #90 tab.chew 07/10/18 Atorvastatin Calcium 40 mg PO DAILY #90 tablet 07/10/18 Following Prescrptions Were Given to Patient: Aspirin [Aspirin, Baby] 81 mg PO DAILY@0800 #90 tab.chew Atorvastatin Calcium 40 mg PO DAILY #90 tablet Primary Care Physician: Stephon Wang MD [Primary Care Provider] - Please follow up with your Primary Care Physician in: [place] 5-7 DAYS Disposition: Home Minutes spent on discharge:: 35 Patient Condition:: Stable Medical Necessity - Tobacco Use Smoking Status: Current some day smoker Tobacco Use: Cigarettes Meaningful Use Info Meaningful Use Diagnoses (Choose all that apply): None applicable Code Visit OBSV E&M: 19133 Observation care discharge
--- NOTE | 2018-07-10 09:19 | DS.PCM_ITS ---
Discharge Date and Diagnosis - Problem List Patient Problems: Active and Suspected Problems TIA (transient ischemic attack) (Acute) Date of Admission: 07/09/18 Date of Discharge: 07/10/18 - Primary Discharge Diagnosis Active and Suspected Problems TIA (transient ischemic attack) (Acute) - Secondary Discharge Diagnosis Chronic Problems Tobacco use disorder (Chronic) Rheumatoid arthritis (Chronic) Obesity (Chronic) Hypothyroidism (Chronic) Benign hypertension (Chronic) Hospital Course and Treatment Imaging Results: Clinical Impression(s) from Imaging Studies Brain CT 07/09/18 12:29 IMPRESSION: Focal area of decreased attenuation in the posteromedial aspect of the right temporal lobe as described. Correlation with MRI is recommended for further evaluation. Electronically Signed: Primitivo Pérez MD at 13:01 EDT Tel [phone], Service support , Chest X-Ray 07/09/18 12:46 IMPRESSION: Stable pleural parenchymal changes at the right lung base. Electronically Signed: Primitivo Pérez MD at 13:02 EDT Tel [phone], Service support , Brain MRI 07/09/18 15:04 IMPRESSION: Signal abnormality in the right temporal lobe corresponding to the CT finding is most consistent with a remote lacunar infarct. Electronically Signed: Mary Powers MD at 20:58 EDT Tel , Service support , Head CTA 07/09/18 15:04 IMPRESSION: Normal bilateral cervical carotid and vertebral arteries. Electronically Signed: Tian Booth MD at 19:26 EDT , Service support , Neck CTA 07/09/18 15:04 IMPRESSION: Normal bilateral cervical carotid and vertebral arteries. Electronically Signed: Tian Booth MD at 19:26 EDT , Service support , Summary of Care Provided: The patient is a 52 year old F who presented with loss of neck tone and parasthesia 1. Transient ischemic attack. Patient was placed in a monitored bed underwent subsequent evaluation with an MRI which only showed Signal abnormality in the right temporal lobe corresponding to the CT finding is most consistent with a remote lacunar infarct. Patient was discharged home on aspirin as well as statin therapy 2. History of panic attacks patient was instructed to follow-up with PCP for possible initiation of SSRI 3. Hypertension-blood pressure controlled, home medications continued with dose adjustment as needed 4. Hypothyroidism-patient is on levothyroxine home dose continued 5. Morbid obesity with BMI of 42; lifestyle modification including weight loss advised 6. GERD with history of nisin fundoplication 7. Rheumatoid arthritis patient is stable on etanercept 8. Acute kidney injury secondary to dehydration resolved with rehydration 9. Tobacco dependence counseled on cessation, offered nicotine patch for tobacco cravings 10. DVT prophylaxis SC heparin Physical examination at the time of discharge; GENERAL: cooperative and in no apparent distress. HEENT: Atraumatic moist oral mucosa EYES; Anicteric, Normal Conjuctiva NECK; supple, normal thyroid, no distended JVD. RESPIRATORY: Clear to auscultation bilaterally, CARDIOVASCULAR: Regular S1 S2, no audible murmurs GI: soft, non-tender, normoactive bowel sounds, : No Renal angle tenderness; No arroyo EXTREMITIES: No edema, no clubbing, no cyanosis. NEURO: Awake; no lateralizing signs. SKIN: No Rash PSYCH; Normal affect Time spent on discharge; 35 minutes Discharge Activity: Return to Normal Activity Home Medications: Medications to take at Discharge Etanercept [Enbrel] 50 mg SQ [facility] 06/17/14 Levothyroxine [Synthroid] 75 mcg PO DAILY 06/17/14 Metformin HCl [Glucophage] 500 mg PO BIDCM 06/17/14 Bisoprolol Fumarate [Zebeta (Beta Rommel)] 10 mg PO DAILY 07/09/18 Cholecalciferol (Vitamin D3) [Vitamin D3] 2,000 units PO DAILY 07/09/18 Clonidine HCl 0.1 - 0.2 mg PO DAILY 07/09/18 Cyclobenzaprine [Flexeril] 10 mg PO PRN PRN 07/09/18 Peg 400/Hypromellose/Glycerin [Visine Tears Drops] 1 drop EACH EYE DAILY 07/09/18 Prednisone 5 mg PO DAILY PRN 07/09/18 Spironolactone 100 mg PO DAILY 07/09/18 Aspirin [Aspirin, Baby] 81 mg PO DAILY@0800 #90 tab.chew 07/10/18 Atorvastatin Calcium 40 mg PO DAILY #90 tablet 07/10/18 Following Prescrptions Were Given to Patient: Aspirin [Aspirin, Baby] 81 mg PO DAILY@0800 #90 tab.chew Atorvastatin Calcium 40 mg PO DAILY #90 tablet Primary Care Physician: Stephon Wang MD [Primary Care Provider] - Please follow up with your Primary Care Physician in: [place] 5-7 DAYS Disposition: Home Minutes spent on discharge:: 35 Patient Condition:: Stable Medical Necessity - Tobacco Use Smoking Status: Current some day smoker Tobacco Use: Cigarettes Meaningful Use Info Meaningful Use Diagnoses (Choose all that apply): None applicable Code Visit OBSV E&M: 89056 Observation care discharge
[2018-07-10] MEDS: Spironolactone 50 MG Tablet 100 MG PO (09:58)
[2018-07-10] MEDS: Bisoprolol Fumarate 5 MG Tablet 10 MG PO (09:58)
[2018-07-10 10:00] VITALS: BMI 42.7
--- NOTE | 2018-07-10 10:55 | CON.PCM_ITS ---
Problem List (1) Benign hypertension Status: Chronic Reason for Consult Date of Consultation: 07/10/18 Reason for Consultation: ? stroke like symptoms. History of Present Illness: The patient is a 52 year old CF with PMH HTN, HLD,borderline DM, RA, hypothyroidism, H/O low back surgery, H/O provoked DVT post surgery, ? H/O seizures, JOSUE on CPAP admitted with episode of feeling of her neck drop with shivering on top of the head, she was at work when this happened at around 9:30 AM yesterday (07/09/18), was seen by a nurse and her BP was high in 170 systolics per documentation, she was told she may have had facial droop but she was not sure about the same and felt her face is full, but symptoms only last for a few seconds. Denies any BALDERAS, visual disturbances, sensory loss, or focal motor weakness. Per patient she had seizure about 30 yrs ago, was on some AED but did not have any seizures in the last 30 yrs and is not non any AED at present. Denies any witnessed seizure. CT head on admission reported nothing acute but p ossible old thalamic stroke, MRI brain reported to show old right thalamic stroke, and CTA head/neck did not show any hemodynamic stenosis or occlusion. Past Medical History Past Medical History (Chronic Problems): Chronic Problems Tobacco use disorder (Chronic) Rheumatoid arthritis (Chronic) Obesity (Chronic) Hypothyroidism (Chronic) Benign hypertension (Chronic) Allergies fluorescein Allergy (Severe, Verified 07/09/18 12:08) Anaphylaxis hydroxychloroquine sulfate [From Plaquenil] Allergy (Verified 07/09/18 12:08) Angioedema Home Medications: Ambulatory Orders Medication Instructions Recorded Etanercept [Enbrel] 50 mg SQ [facility] 06/17/14 Levothyroxine [Synthroid] 75 mcg PO DAILY 06/17/14 Metformin HCl [Glucophage] 500 mg PO BIDCM 06/17/14 Bisoprolol Fumarate [Zebeta (Beta 10 mg PO DAILY 07/09/18 Rommel)] Cholecalciferol (Vitamin D3) 2,000 units PO DAILY 07/09/18 [Vitamin D3] Clonidine HCl 0.1 - 0.2 mg PO DAILY 07/09/18 Cyclobenzaprine [Flexeril] 10 mg PO PRN PRN 07/09/18 Peg 400/Hypromellose/Glycerin 1 drop EACH EYE DAILY 07/09/18 [Visine Tears Drops] Prednisone 5 mg PO DAILY PRN 07/09/18 Spironolactone 100 mg PO DAILY 07/09/18 Aspirin [Aspirin, Baby] 81 mg PO DAILY@0800 #90 tab.chew 07/10/18 Atorvastatin Calcium 40 mg PO DAILY #90 tablet 07/10/18 Surgical History: tonsillectomy, - - back surgery Psychiatric History: No pertinent psych hx [employer] History: No pertinent [employer] history Lives: Alone - lives in friends upper house Smoking Status: Current some day smoker Tobacco Use: Cigarettes Alcohol: Heavy - drinks a small bottle of wine daily Drugs: None - *Family History Maternal History Items: Heart Disease, Hypertension Paternal History Items: High Cholesterol, Heart Disease, Hypertension Review of Systems Constitutional: Reports: - - complete ROS negative except as documented in HPI - Physical Exam General: Alert HEENT: Normocephalic Neck: Supple Lungs: Normal air movement Cardiovascular: Normal S1, Normal S2 Abdomen: Bowel Sounds Present Extremities: No cyanosis Musculoskeletal: No Tenderness to Palpation of Joints or Extremities Neurological: - - consious, alert, AoAx3, CN 2-12 grossly intact, power 5/5 all 4 extremities, no sensory loss, no cerebellar signs, Reflexes + B/L B/S/T/K/A, gait deferred. Psych/Mental Status: Normal Affect Vital Signs Temp Pulse Resp BP Pulse Ox 97.2 F L 77 16 128/71 H 95 07/10/18 08:21 07/10/18 08:21 07/10/18 08:21 07/10/18 08:21 07/10/18 08:21 Oxygen Delivery Method Room Air Weight: 123.377 kg Body Mass Index (BMI) 42.7 Intake and Output for Last 24 Hours 07/08/18 07/09/18 07/10/18 23:59 23:59 23:59 Intake Total 400 / 400 100 / 100 Balance 400 / 400 100 / 100 Laboratory Tests Past 24 Hrs 07/09/18 07/09/18 07/09/18 12:30 12:30 12:30 WBC 6.0 RBC 4.70 Hgb 15.8 H Hct 46.2 MCV 98.3 MCH 33.6 H MCHC 34.2 RDW 12.6 RDW Differential 44.7 H Plt Count 167 MPV 11.3 Immature Gran % (Auto) 0.500 Neut % (Auto) 59.9 Lymph % (Auto) 27.4 [place] % (Auto) 10.2 H Eos % (Auto) 0.8 Baso % (Auto) 1.2 H Absolute Neuts (auto) 3.6 Absolute Lymphs (auto) 1.64 Total Counted Not Reportable PT 12.7 INR 1.0 APTT 26.7 Sodium 137 Potassium 4.4 Chloride 106 Carbon Dioxide 23.0 Anion Gap 8 BUN 15 Creatinine 1.24 H Estim Creat Clear Calc 51.61 Est GFR (MDRD) Af Amer 58 L Est GFR (MDRD) Non-Af 48 L BUN/Creatinine Ratio 12.1 Glucose 122 H Hemoglobin A1c Calcium 9.0 Troponin I < 0.015 Triglycerides Cholesterol LDL Cholesterol VLDL Cholesterol HDL Cholesterol 07/09/18 07/09/18 07/10/18 12:30 12:30 05:30 WBC 5.7 RBC 4.64 Hgb 15.6 H Hct 46.2 MCV 99.6 H MCH 33.6 H MCHC 33.8 RDW 13.1 RDW Differential 47.4 H Plt Count 84 L MPV 11.6 Immature Gran % (Auto) 0.300 Neut % (Auto) 44.5 L Lymph % (Auto) 43.0 H [place] % (Auto) 9.6 Eos % (Auto) 1.9 Baso % (Auto) 0.7 Absolute Neuts (auto) 2.5 Absolute Lymphs (auto) 2.46 Total Counted Not Reportable PT INR APTT Sodium Potassium Chloride Carbon Dioxide Anion Gap BUN Creatinine Estim Creat Clear Calc Est GFR (MDRD) Af Amer Est GFR (MDRD) Non-Af BUN/Creatinine Ratio Glucose Hemoglobin A1c 6.0 Calcium Troponin I Triglycerides 265 H Cholesterol 249 H LDL Cholesterol 152 H VLDL Cholesterol 53 H HDL Cholesterol 44 07/10/18 07/10/18 05:30 07:00 WBC RBC Hgb Hct MCV MCH MCHC RDW RDW Differential Plt Count MPV Immature Gran % (Auto) Neut % (Auto) Lymph % (Auto) [place] % (Auto) Eos % (Auto) Baso % (Auto) Absolute Neuts (auto) Absolute Lymphs (auto) Total Counted PT INR APTT Sodium Cancelled 137 Potassium Cancelled 4.2 Chloride Cancelled 105 Carbon Dioxide Cancelled 23.0 Anion Gap Cancelled 9 BUN Cancelled 15 Creatinine Cancelled 1.07 H Estim Creat Clear Calc Cancelled 57.58 Est GFR (MDRD) Af Amer Cancelled 69 Est GFR (MDRD) Non-Af Cancelled 57 L BUN/Creatinine Ratio Cancelled 14.0 Glucose Cancelled 135 H Hemoglobin A1c Calcium Cancelled 8.7 Troponin I Triglycerides Cholesterol LDL Cholesterol VLDL Cholesterol HDL Cholesterol POC Glucose 07/10/18 07/09/18 07/09/18 06:45 21:07 17:15 POC Glucose 139 H 136 H 107 Assessment/Plan All Active Problems TIA (transient ischemic attack) (Acute) The patient is a 52 year old CF with PMH HTN, HLD,borderline DM, RA, hypothyroidism, H/O low back surgery, H/O provoked DVT post surgery, ? H/O seizures, JOSUE on CPAP admitted with episode of feeling of her neck drop with shivering on top of the head, she was at work when this happened at around 9:30 AM yesterday (07/09/18), was seen by a nurse and her BP was high in 170 systolics per documentation, she was told she may have had facial droop but she was not sure about the same and felt her face is full, but symptoms only last for a few seconds. Denies any BALDERAS, visual disturbances, sensory loss, or focal motor weakness. Per patient she had seizure about 30 yrs ago, was on some AED but did not have any seizures in the last 30 yrs and is not non any AED at present. Denies any witnessed seizure. CT head on admission reported nothing acute but possible old thalamic stroke, MRI brain reported to show old right thalamic stroke, and CTA head/neck did not show any hemodynamic stenosis or occlusion. Impression Unlikely to be TIA at present H/O Old right thalamic stroke Plan -MRI brain images reviewed -CTA head/neck reviewed -Labs reviewed -On ASA and statin, started this admission, can continue for secondary stroke prevention -Patient counseled not to smoke -Goal BP < 130/80 mmHg -Fall precautions -GI/DVT prophylaxis -Further medical management per primary team -Please call with questions if any -Thank you for allowing us to participate in patient's care and management I spent 60 minutes taking history, doing physical examination, reviewing medical records, coordinating care and counseling the patient. Code Visit Inpatient E&M: 48447 Init Hosp L3
== END 2018-07-10 10:12 | disposition home or self-care (01) ==
LOC: ED 14:10 → PCU 14:36
PROVIDERS: Admitting Provider Student in an Organized Health Care Education/Training Program; Emergency Provider Emergency Medicine; Family Provider Family Medicine; PCP Family Medicine; Visit Provider Internal Medicine
DX: G45.9 Transient cerebral ischemic attack, unspecified (principal); F17.210 Nicotine dependence, cigarettes, uncomplicated; M06.9 Rheumatoid arthritis, unspecified; E03.9 Hypothyroidism, unspecified; Z79.899 Other long term (current) drug therapy; R73.09 Other abnormal glucose; E66.01 Morbid (severe) obesity due to excess calories; Z68.41 Body mass index [BMI] 40.0-44.9, adult; Z71.3 Dietary counseling and surveillance; Z79.84 Long term (current) use of oral hypoglycemic drugs; I12.9 Hypertensive chronic kidney disease with stage 1 through stage 4 chronic kidney disease, or unspecified chronic kidney disease; N18.3 Chronic kidney disease, stage 3 (moderate); I07.1 Rheumatic tricuspid insufficiency; R94.31 Abnormal electrocardiogram [ECG] [EKG]
CPT/HCPCS: 36415; 70450; 70496; 70498; 70551; 71045; 80048; 80061; 82962; 83036; 84484; 85025; 85610; 85730; 93005; 93306; 99218; 99284; 99406; Q9957; Q9967; A4216; C8929; G0378

== ENCOUNTER → 2018-10-02 16:39 | Outpatient (CLI) | payer OTHER, SELFPAY ==
[2018-10-02 17:29] LABS: Absolute Lymphocyte Count 3.35 X10^3/ul (0.83-4.51); Absolute Neutrophil Count 3.8 X10^3/uL (2.0-7.7); Basophil# 0.06 X10^3/uL; Basophil% 0.7 % (0-1); Eosinophil# 0.18 X10^3/uL; Eosinophils% 2.2 % (0-5); Hematocrit 43.4 % (37-47); Hemoglobin 14.5 g/dl (12.0-15.0); Lymphocyte # 3.35 X10^3/ul (4.0); Lymphocyte % 40.4 % (19-41); Mean Corp Hgb Conc 33.4 g/gl (32-36); Mean Corpuscular Volume 101.6 fL (81-99); Mean Platelet Vol. 11.1 fl (6.2-12.0); Monocyte# 0.85 X10^3/uL; Monocyte% 10.2 % (0-10); Neutrophil # 3.84 X10^3/uL (2.7-7.7); Neutrophil % 46.3 % (47-70); Platelet Count 182 K/mm3 (150-450); RBC Distribution Width CV 14.4 % (11.6-14.6); RBC Distribution Width SD 52.6 fl (35.1-43.9); Red Blood Count 4.27 M/mm3 (4.2-5.4); White Blood Count 8.3 K/mm3 (4.4-11.0)
[2018-10-02 17:31] LABS: POSITIVE COUNT NO; POSITIVE DIFFERENTIAL NO; POSITIVE MORPHOLOGY NO
[2018-10-02 17:54] LABS: CRP < 2.90 mg/L (0.0-3.0)
[2018-10-06 14:06] LABS: Angiotensin Convert Enzyme 56 U/L (14-82); QNTFERON TB Mitogen Value > 10.00 IU/mL (.); QNTFERON TB Nil Value 0.03 IU/mL (.); QNTFERON TB1+ Ag Value 0.02 IU/mL (.); QNTFERON TB2+ Ag Value 0.03 IU/mL (.)
[2018-10-07 11:57] LABS: ASO Titer 27.1 IU/mL (0.0-200.0); QNTIFERON TB Positive Criteria Negative (Negative)
== END ==
PROVIDERS: Family Provider Family Medicine; PCP Family Medicine; Referring Provider Family Medicine; Visit Provider Family Medicine
DX: J32.9 Chronic sinusitis, unspecified (principal); R61 Generalized hyperhidrosis
CPT/HCPCS: 36415; 82164; 85025; 86060; 86140; 86480

== ENCOUNTER → 2018-10-20 08:35 | Outpatient (CLI) | payer OTHER, SELFPAY ==
[2018-10-20 10:24] LABS: Hematocrit 44.1 % (37-47); Hemoglobin 14.3 g/dl (12.0-15.0); Mean Corp Hgb Conc 32.4 g/gl (32-36); Mean Corpuscular Hgb 33.4 pg (27.0-32.0); Platelet Count 178 K/mm3 (150-450); RBC Distribution Width CV 14.3 % (11.6-14.6); RBC Distribution Width SD 53.8 fl (35.1-43.9); Red Blood Count 4.28 M/mm3 (4.2-5.4); White Blood Count 5.9 K/mm3 (4.4-11.0)
[2018-10-20 10:25] LABS: Absolute Neutrophil Count 2.9 X10^3/uL (2.0-7.7); Eosinophils% 2.4 % (0-5); Lymphocyte % 36.9 % (19-41); Mean Platelet Vol. 11.6 fl (6.2-12.0); Monocyte% 10.5 % (0-10); Neutrophil # 2.92 X10^3/uL (2.7-7.7); Neutrophil % 49.2 % (47-70)
[2018-10-20 10:26] LABS: Absolute Lymphocyte Count 2.19 X10^3/ul (0.83-4.51); Basophil# 0.04 X10^3/uL; Basophil% 0.7 % (0-1); Eosinophil# 0.14 X10^3/uL; Lymphocyte # 2.19 X10^3/ul (4.0); Monocyte# 0.62 X10^3/uL; POSITIVE COUNT NO; POSITIVE DIFFERENTIAL NO; POSITIVE MORPHOLOGY NO
[2018-10-20 10:35] LABS: ALB/GLOB Ratio 1.1 RATIO (0.9-2.4); AST(SGOT) 69 U/L (15-37); Alanine Aminotransfer ALT/SGPT 72 U/L (13-56); Alkaline Phosphatase 83 U/L (45-117); Anion Gap 12 (5-15); BUN 16 mg/dL (7-18); BUN/Creat Ratio 14.8 RATIO (10-20); Chloride 104 mmol/L (98-107); Creatinine, Serum 1.08 mg/dL (0.55-1.02); EST Glomerular Filtration Rate 56 mL/min (>60); Est Glom Filt Rate - Afr Amer 68 mL/min (>60); Globulin 3.5 g/dL (2.2-4.2); Glucose 133 mg/dL (74-106); Potassium 3.7 mmol/L (3.5-5.1); Protein, Total 7.5 g/dL (6.4-8.2); Sodium Level 140 mmol/L (136-145)
== END ==
PROVIDERS: Family Provider Family Medicine; PCP Family Medicine; Referring Provider Internal Medicine Rheumatology; Visit Provider Internal Medicine Rheumatology
DX: M06.00 Rheumatoid arthritis without rheumatoid factor, unspecified site (principal); K76.0 Fatty (change of) liver, not elsewhere classified; M18.11 Unilateral primary osteoarthritis of first carpometacarpal joint, right hand; M47.897 Other spondylosis, lumbosacral region; K21.0 Gastro-esophageal reflux disease with esophagitis; G47.33 Obstructive sleep apnea (adult) (pediatric); E11.9 Type 2 diabetes mellitus without complications; I10 Essential (primary) hypertension; E03.9 Hypothyroidism, unspecified; R51 Headache; Z79.899 Other long term (current) drug therapy
CPT/HCPCS: 36415; 80053; 85025

== ENCOUNTER 2018-11-05 07:39 | Day surgery (SDC) | payer OTHER, SELFPAY ==
[2018-10-24 09:06] VITALS: BMI 42.7
[2018-11-05 07:52] VITALS: BP 135/85; PULSE 69; RESP 16; TEMP 36.6; O2SAT 98; BMI 43.0
[2018-11-05 08:21] LABS: Bedside Glucose 148 mg/dL (70-110)
--- NOTE | 2018-11-05 08:45 | EGD_PTH ---
PATIENT: PRABHAKAR ESPINAL LOC: EN U#:[id number] AGE/SX: 53/F ROOM: RE11/05/[address]: Dr. Hussain Wild MD : 1965 BED: DIS: 11/05/2018 SPEC #: [id number] RECD: 11/05/18 09:35 STATUS: RAMESH BRIE #: [id number] GENEVA: 11/05/18 08:[address]: Hussain Wild DEPT: SURGICAL PATHOLOGY RECD BY: Charlie Hankins ENTERED: 11/05/18 11:02 SP TYPE: EGD BIOPSY OTHR DR: Dr. Stephon Wang MD Tissues: Gastric mucous membrane Procedures: Surgery Specimen Level IV HEADER OPERATION: EGD ([facility] [place]) PRE-OP DIAGNOSIS: History of esophagitis and GERD with esophagitis TISSUE SUBMITTED: Antrum biopsy for H. pylori and path MICROSCOPIC DIAGNOSIS Gastric antrum, biopsy: Minimal chronic inflammation. See comment. AM:di 11/06/18 COMMENT The results of immunohistochemistry for Helicobacter pylori will be reported separately ([id number]). MICROSCOPIC DESCRIPTION Slides are reviewed. GROSS DESCRIPTION Received in fixative is one container labeled with the patient's name and designated antrum biopsy. The specimen consists of one irregular fragment of light gutiérrez soft tissue that measures 0.3 x 0.3 x 0.1 cm. The specimen is totally submitted in one cassette. / AM:di 11/05/18 TC:3 CPT: 03434
--- NOTE | 2018-11-05 08:45 | IMM_PTH ---
PATIENT: PRABHAKAR ESPINAL LOC: EN U#:[id number] AGE/SX: 53/F ROOM: RE11/05/[address]: Dr. Hussain Wild MD : 1965 BED: DIS: 11/05/2018 SPEC #: [id number] RECD: 11/05/18 13:07 STATUS: RAMESH RECornelia #: [id number] GENEVA: 11/05/18 08:[address]: Hussain Wild DEPT: IMMUNOHISTOCHEMISTRY RECD BY: Sharon Simon ENTERED: 11/05/18 13:07 SP TYPE: IMMUNO OTHR DR: Dr. Stephon Wang MD Tissues: Stomach, NOS Procedures: H Pylori (initial) PHYSICIAN & INSTITUTION [place] [address] SPECIMEN INFORMATION: Tissue Source: Antrum biopsy Clinical Info: Esophagitis, GERD Specimen Number: [id number] CPT code: 80841 METHODOLOGY: Deparaffinized sections of prefer/formalin-fixed tissue or PAP/DQ stained slides are incubated with monoclonal/polyclonal antibodies/oligonucleotide probes. Localization is made via biotin free immunoperoxidase method. Appropriate controls are performed and reacted as expected. Results on target cell population are indicated in the following table: RESULTS: ANTIBODY / CLONE RESULT H Pylori (polyclonal) negative These tests were developed and their performance characteristics determined by [facility]. They may not have been cleared or approved by the [place]. Food and Drug Administration. The FDA has determined that such clearance or approval is not necessary. INTERPRETATION: Antrum biopsy: Negative for Helicobacter pylori organisms. AM:di 11/06/18
[2018-11-05 08:52] VITALS: BP 108/63; BP 135/85; PULSE 70; RESP 18; TEMP 36.6; O2SAT 97
[2018-11-05 08:55] VITALS: BP 106/57; BP 135/85; PULSE 72; RESP 16; O2SAT 96
[2018-11-05 09:00] VITALS: BP 105/64; BP 135/85; PULSE 71; RESP 16; O2SAT 96
[2018-11-05 09:07] VITALS: BP 135/85; BP 96/59; PULSE 63; RESP 18; TEMP 36.6; O2SAT 97
[2018-11-05 09:22] VITALS: BP 135/85
--- NOTE | 2018-11-05 12:47 | OP.ENDO_ITS ---
Patient Name: Valerie Martínez Procedure Date: 11/05/2018 8:29 AM Date of : 1965 Age: 53 Procedure: Upper GI endoscopy Indications: Gastro-esophageal reflux disease Providers: Hussain Wild MD Medicines: See the Anesthesia note for documentation of the administered medications Patient Profile: This is a 53 year old female. Refer to note in patient chart for documentation of history and physical. Complications: No immediate complications. Procedure: Pre-Anesthesia Assessment: - Prior to the procedure, a History and Physical was performed, and patient medications and allergies were reviewed. The patient's tolerance of previous anesthesia was also reviewed. The risks and benefits of the procedure and the sedation options and risks were discussed with the patient. All questions were answered, and informed consent was obtained. Prior Anticoagulants: The patient has taken no previous anticoagulant or antiplatelet agents. ASA Grade Assessment: II - A patient with mild systemic disease. After reviewing the risks and benefits, the patient was deemed in satisfactory condition to undergo the procedure. After obtaining informed consent, the endoscope was passed under direct vision. Throughout the procedure, the patient's blood pressure, pulse, and oxygen saturations were monitored continuously. The gastroscope was introduced through the mouth, and advanced to the second part of duodenum. The upper GI endoscopy was accomplished without difficulty. The patient tolerated the procedure well. Scope In: 8:40:38 AM Scope Out: 8:43:32 AM Total Procedure Duration Time 0 hours 2 minutes 54 seconds Findings: The examined esophagus was normal. Localized mild inflammation characterized by linear erosions was found in the gastric antrum. Biopsies were taken with a cold forceps for Helicobacter pylori testing. The examined duodenum was normal. No biopsies or other specimens were collected for this exam. Impression: - Normal esophagus. - Gastritis. Biopsied. - Normal examined duodenum. No specimens collected. Recommendation: - Discharge patient to home. - Resume previous diet. - Continue present medications. - Await pathology results. - Repeat upper endoscopy in 3 years for surveillance. - Return to my office in 1 week. Procedure Code(s): --- Professional --- 31714, Esophagogastroduodenoscopy, flexible, transoral; with biopsy, single or multiple Diagnosis Code(s): --- Professional --- K29.70, Gastritis, unspecified, without bleeding K21.9, Gastro-esophageal reflux disease without esophagitis CPT copyright 2017 [employer]. All rights reserved. The codes documented in this report are preliminary and upon vocational coordinator review may be revised to meet current compliance requirements. MD Hussain Bass MD 11/05/2018 8:53:10 AM This report has been signed electronically. Number of Addenda: 0 Note Initiated On: 11/05/2018 8:29 AM
--- OUTSIDE RECORDS SUMMARY | 2019-01-07 02:00 | XMS RPT_ITS ---
:1965 Author Organization OHIP Support Name Relationship Address Phone [facility] DD Unavailable [address] + [place] [address] KUBILIS, DANIAL Unavailable [address] + [place] [address] [facility] Unavailable [address] [facility] [address] + [place] [address] KUBILIS, DANIAL Unavailable [address] + [place] [address] [place] [facility] Unavailable [address] [facility] [address] + [place] [address] KUBILIS, DANIAL Unavailable [address] + [place] [address] [place] [facility] Unavailable [address] + [place] [address] KUBILIS, DANIAL Unavailable [address] + [place] [address] [facility] Unavailable [address] [facility] [address] + [place] [address] KUBILIS, DANIAL Unavailable [address] + [place] [address] [employer] Unavailable [address] [facility] [address] + [place] [address] KUBILIS, DANIAL Unavailable [address] + [place] [address] [employer] Unavailable [address] [facility] [address] + [place] [address] KUBILIS, DANIAL Unavailable [address] + [place] [address] [place] [facility] Unavailable [address] [facility] [address] + [place] [address] ROSS MCDOWELLELLE Unavailable [address] + [place] [address] [place] [facility] DD Unavailable [address] [facility] [address] + [place] [address] DANIAL MCDOWELL Unavailable [address] + [place] [address] [place] [facility] DD Unavailable [address] [facility] [address] + [facility] [address] DANIAL MCDOWELL Unavailable [address] + [place] [address] [place] BD OF DD Unavailable [address] [facility] [address] + [place] [address] DANIAL MCDOWELL Unavailable [address] + [place] [address] [place] [facility] DD Unavailable [address] [facility] [address] + [place] [address] DANIAL MCDOWELL Unavailable [address] + [place] [address] Care Team Providers Name Role Phone Wang, Stephon Attending Unavailable Wang, Stephon Referring Unavailable Wang, Stephon Primary Care Unavailable Michael, Humaira Attending Unavailable Vellanki, Humaira Referring Unavailable Wang, Stephon Primary Care Unavailable Nurse, Surgery Attending Unavailable Wang, Stephon Referring Unavailable Wang, Stephon Attending Unavailable Wang, Stephon Referring Unavailable Wang, Stephon Primary Care Unavailable Hussain Wild Attending Unavailable Wang, Stephon Referring Unavailable Hussain Wild Attending Unavailable Hussain Wild Referring Unavailable Wang, Stephon Primary Care Unavailable Wang, Stephon Attending Unavailable Wang, Stephon Primary Care Unavailable Wang, Stephon Referring Unavailable Aidenlanki, Humaira Attending Unavailable Vellanki, Humaira Referring Unavailable Wang, Stephon Primary Care Unavailable Wang, Stephon Primary Care Unavailable Danae Tellez Admitting Unavailable Coni Gr Consulting Unavailable Hugh Lopez Attending Unavailable Koram, Danae Marisa Admitting Unavailable Rosalinda, Danae Marisa Attending Unavailable Stephon Wang Primary Care Unavailable Coni Gr SCarol Consulting Unavailable Rosalinda, Danae Marisa Consulting Unavailable Rosalinda, Danae Marisa Admitting Unavailable Hugh Lopez Attending Unavailable Stephon Wang Primary Care Unavailable Coni Gr Consulting Unavailable Hugh Lopez Consulting Unavailable Hussain Ellsworth Attending Unavailable PROBLEMS PROBLEMS DATE TYPE CONDITION / CODE ATTENDING STATUS SOURCE 10/24/2018 Unknown Z87.19 - Personal Hussain Wild Active [place] history of other Community diseases of the Hospital digestive system / Repository Z87.19(ICD-10) 10/24/2018 Unknown K21.0 - Hussain Wild Active [place] [facility] reflux disease with Hospital esophagitis / Repository K21.0(ICD-10) 05/06/2018 Unknown M06.00 - Rheumatoid Vellanki, Humaira Active [place] arthritis without Community rheumatoid factor, Hospital unspecified site / Repository M06.00(ICD-10) 05/06/2018 Unknown Z79.899 - Other long Vellanki, Humaira Active [place] term (current) drug Community therapy / Hospital Z79.899(ICD-10) Repository 05/06/2018 Unknown K76.0 - Fatty (change Vellanki, Humaira Active [place] of) liver, not Community elsewhere classified Hospital / K76.0(ICD-10) Repository 05/06/2018 Unknown M18.11 - Unilateral Vellanki, Humaira Active [place] primary Community osteoarthritis of Hospital first carpometacarpal Repository joint, right hand / M18.11(ICD-10) 05/06/2018 Unknown M47.897 - Other Vellanki, Humaira Active [place] spondylosis, Community lumbosacral region / Hospital M47.897(ICD-10) Repository 05/06/2018 Unknown G47.33 - Obstructive Vellanki, Humaira Active [place] sleep apnea (adult) Community (pediatric) / Hospital G47.33(ICD-10) Repository 05/06/2018 Unknown E11.9 - Type 2 Vellanki, Humaira Active [place] diabetes mellitus Community without complications Hospital / E11.9(ICD-10) Repository 05/06/2018 Unknown I10 - Essential Vellanki, Humaira Active [place] (primary) [facility] hypertension / Hospital I10(ICD-10) Repository 05/06/2018 Unknown E03.9 - Humaira Rodriguez Active [place] Hypothyroidism, [facility] unspecified / Hospital E03.9(ICD-10) Repository 05/06/2018 Unknown R51 - Headache / Humaira Rodriguez Active [place] R51(ICD-10) [facility] Hospital Repository 12/04/2017 Unknown R20.2 - Paresthesia Stephon Wang Active [place] of skin / [facility] R20.2(ICD-10) Hospital Repository PROCEDURES PROCEDURES No Procedure Records FoundRESULTS RESULTS OPERATIVE REPORT - Observed: 11/05/2018 Status: F Source: [place] [facility] 12:47 PM [facility] REPOSITORY [facility] Medical Records Department [address] [place] [place] [address] Operative Report - Endoscopy MR#: [id number] Acct: [id number] Name: VALERIE MARTÍNEZ Rep #: [id number] : 1965 53 From: Hussain Wild MD PCP: Stephon Wang MD Status: [place] [facility] [place] Patient Name: Valerie Martínez Procedure Date: 11/05/2018 8:29 AM Date of : 1965 Age: 53 Procedure: Upper GI endoscopy Indications: Gastro-esophageal reflux disease Providers: Hussain Wild MD Medicines: See the Anesthesia note for documentation of the administered medications Patient Profile: This is a 53 year old female. Refer to note in patient chart for documentation of history and physical. Complications: No immediate complications. Procedure: Pre-Anesthesia Assessment: - Prior to the procedure, a History and Physical was performed, and patient medications and allergies were reviewed. The patient's tolerance of previous anesthesia was also reviewed. The risks and benefits of the procedure and the sedation options and risks were discussed with the patient. All questions were answered, and informed consent was obtained. Prior Anticoagulants: The patient has taken no previous anticoagulant or antiplatelet agents. ASA Grade Assessment: II - A patient with mild systemic disease. After reviewing the risks and benefits, the patient was deemed in satisfactory condition to undergo the procedure. After obtaining informed consent, the endoscope was passed under direct vision. Throughout the procedure, the patient's blood pressure, pulse, and oxygen saturations were monitored continuously. The gastroscope was introduced through the mouth, and advanced to the second part of duodenum. The upper GI endoscopy was accomplished without difficulty. The patient tolerated the procedure well. Scope In: 8:40:38 AM Scope Out: 8:43:32 AM Total Procedure Duration Time 0 hours 2 minutes 54 seconds Findings: The examined esophagus was normal. Localized mild inflammation characterized by linear erosions was found in the gastric antrum. Biopsies were taken with a cold forceps for Helicobacter pylori testing. The examined duodenum was normal. No biopsies or other specimens were collected for this exam. Impression: - Normal esophagus. - Gastritis. Biopsied. - Normal examined duodenum. No specimens collected. Recommendation: - Discharge patient to home. - Resume previous diet. - Continue present medications. - Await pathology results. - Repeat upper endoscopy in 3 years for surveillance. - Return to my office in 1 week. Procedure Code(s): --- Professional --- 37111, Esophagogastroduodenoscopy, flexible, transoral; with biopsy, single or multiple Diagnosis Code(s): --- Professional --- K29.70, Gastritis, unspecified, without bleeding K21.9, Gastro-esophageal reflux disease without esophagitis CPT copyright 2017 [employer]. All rights reserved. The codes documented in this report are preliminary and upon assembler metal building review may be revised to meet current compliance requirements. MD Hussain Bass MD 11/05/2018 8:53:10 AM This report has been signed electronically. Number of Addenda: 0 Note Initiated On: 11/05/2018 8:29 AM 11/05/18 1246 Date Hussain Wild MD Cosigner Signature: Date (if indicated) CC: Hussain Wild MD; Stephon Wang MD Date Dictated: 11/05/18 0829 Date Transcribed: Business Office Representative: IAN Signed IMMUNOHISTOCHEMISTRY Observed: 11/05/2018 Status: F Source: [place] 8:45 AM [facility] REPOSITORY Patient: VALERIE MARTÍNEZ : 1965 (53/F) Acct Num: [id number] Phys: Hussain Wild MD Unit Num: [id number] Loc: EN Specimen: [id number] Received: 11/05/18 - 1307 Spec Type: IMMUNO TISSUES 1 TISSUES: Stomach, NOS SPECIMEN INFORMATION: Tissue Source: Antrum biopsy Clinical Info: Esophagitis, GERD Specimen Number: [id number] CPT code: 03893 METHODOLOGY: Deparaffinized sections of prefer/formalin-fixed tissue or PAP/DQ stained slides are incubated with monoclonal/polyclonal antibodies/oligonucleotide probes. Localization is made via biotin free immunoperoxidase method. Appropriate controls are performed and reacted as expected. Results on target cell population are indicated in the following table: RESULTS: ANTIBODY / CLONE RESULT H Pylori (polyclonal) negative These tests were developed and their performance characteristics determined by [facility]. They may not have been cleared or approved by the U.S. Food and Drug Administration. The FDA has determined that such clearance or approval is not necessary. INTERPRETATION: Antrum biopsy: Negative for Helicobacter pylori organisms. AM:di 11/06/18 PHYSICIAN AND INSTITUTION [place] [address] Signed Chicho Christina, DO 11/06/18 <signature on file> Performed By: #### PIMM #### [facility] [address] [place] [address]. [place], [address] EGD ([facility]) Observed: 11/05/2018 Status: F Source: [place] 8:45 [facility] REPOSITORY Patient: VALERIE MARTÍNEZ : 1965 (53/F) Acct Num: [id number] Phys: Hussain Wild MD Unit Num: [id number] Loc: EN Specimen: [id number] Received: 11/05/1863 Spec Type: EGD BIOPSY TISSUES 1 TISSUES: Gastric mucous membrane COMMENT The results of immunohistochemistry for Helicobacter pylori will be reported separately (RF19). GROSS DESCRIPTION Received in fixative is one container labeled with the patient's name and designated antrum biopsy. The specimen consists of one irregular fragment of light gutiérrez soft tissue that measures 0.3 x 0.3 x 0.1 cm. The specimen is totally submitted in one cassette. / AM:di 11/05/18 TC:3 CPT: 90241 HEADER OPERATION: EGD ([facility]) PRE-OP DIAGNOSIS: History of esophagitis and GERD with esophagitis TISSUE SUBMITTED: Antrum biopsy for H. pylori and path MICROSCOPIC DESCRIPTION Slides are reviewed. MICROSCOPIC DIAGNOSIS Gastric antrum, biopsy: Minimal chronic inflammation. See comment. AM:di 11/06/18 Signed Chicho Christina, 11/06/18 <signature on file> Performed By: #### PEGD #### [facility] [address] [place], [place], [address] BEDSIDE GLUCOSE Collected: 11/05/2018 Status: F Source: [place] 8:05 [facility] REPOSITORY TYPE CODE TESTS RESULT OUT OF REFERENCE UNITS RANGE LAB L501.080 70-110 mg/dL High BEDSIDE GLU 148 Result Comment: MANAGEMENT OF PATIENT CARE PER NURSING PROTOCOL Performed By: #### L501.080 #### [facility] Point of Care [address] [place] [address] SURGERY VISIT REPORT Observed: 10/24/2018 Status: F Source: [place] 9:07 [facility] REPOSITORY [facility] [address] [place] [address]. [address] [place] [address] OFFICE VISIT Date of Service: 10/24/18 MR#: [id number] Acct: [id number] Name: TEDDYVALERIE L Rep #: [id number] : 1965 Provider: Hussain Wild MD Age/Sex: 53/F Location: [facility] Status: Signed Intake Vital Signs10/24/18 Body Mass Index (BMI) 42.7 Intake Visit Reasons: EGD Consult Chief Complaint: egd, hx esophageal ulcer Suction Operator Required: No Allergies fluorescein Allergy (Severe, Verified 10/24/18 08:35) Anaphylaxis hydroxychloroquine sulfate [From Plaquenil] Allergy (Verified 10/24/18 08:35) Angioedema Medications Etanercept [Enbrel] 50 mg SQ [place] 06/17/14 [History Confirmed 10/24/18] Levothyroxine [Synthroid] 75 mcg PO DAILY 06/17/14 [History Confirmed 10/24/18] Metformin HCl [Glucophage] 500 mg PO BIDCM 06/17/14 [History Confirmed 10/24/18] Bisoprolol Fumarate [Zebeta (Beta Rommel)] 10 mg PO DAILY 07/09/18 [History Confirmed 10/24/18] Cholecalciferol (Vitamin D3) [Vitamin D3] 2,000 units PO DAILY 07/09/18 [History Confirmed 10/24/18] Clonidine HCl 0.1 - 0.2 mg PO DAILY 07/09/18 [History Confirmed 10/24/18] Cyclobenzaprine [Flexeril] 10 mg PO PRN PRN 07/09/18 [History Confirmed 10/24/18] Spironolactone 100 mg PO DAILY 07/09/18 [History Confirmed 10/24/18] Aspirin [Aspirin, Baby] 81 mg PO DAILY@0800 #90 tab.chew 07/10/18 [Rx Confirmed 10/24/18] Atorvastatin Calcium 40 mg PO DAILY #90 tab 07/10/18 [Rx Confirmed 10/24/18] acarbose 50 mg tablet 50 mg PO TID 10/24/18 [History Confirmed 10/24/18] clopidogrel 75 mg tablet 75 mg PO DAILY 10/24/18 [History Confirmed 10/24/18] vitamin B complex tablet 1 tab PO DAILY 10/24/18 [History Confirmed 10/24/18] Is last menstrual period known: No Post menopausal: Yes Patient : No PFSH Medical History TIA (transient ischemic attack) (Acute) Tobacco use disorder (Chronic) Rheumatoid arthritis (Chronic) Obesity (Chronic) Hypothyroidism (Chronic) Benign hypertension (Chronic) History of esophageal ulcer (Acute) Surgical History History of breast biopsy (Acute) History of colonoscopy (Acute 2013) History of esophagogastroduodenoscopy (EGD) (Acute 2013) History of hernia repair (Acute 2014) History of repair of ACL (Acute) Status post laparoscopic Divine fundoplication (Acute 2013) Family History Father Heart disease Myocardial infarction Mother Hypertension Breast cancer Cancer brain Sister Hypertension Social History Smoking Status: Current some day smoker HPI HPI HPI: VALERIE MARTÍNEZ, is a 53 F who presents to the office today for follow-up from a laparoscopic partial wrap for reflux disease. I originally saw this patient back in 2013 and diagnosed her with erosive esophagitis. I rescoped her again in July 2014 which showed the Z line at 40 cm. Erosive esophagitis had healed. She underwent a 48-hour pH probe which showed an elevated DeMeester score. She subsequently underwent esophageal manometry and then from that on to surgery. Patient states that the surgery has worked quite well. She does not have to take any proton pump inhibitors and she had really has no symptomatology whatsoever. Exam Const General: well developed, no acute distress, well hydrated Orientation: oriented to person, oriented to place, oriented to time [facility] Head: normocephalic, atraumatic Ears: external ears normal Mouth: moist mucous membranes Eyes Sclera: sclerae normal Pupils: normal by confrontation Neck Neck: no lymphadenopathy noted Neck mass: No Thyroid: symmetrical, thyroid normal Chest Chest palpation AND inspection: normal inspection of the chest Resp Effort AND Inspection: normal respiratory effort Auscultation: clear to auscultation bilaterally Percussion: percussion normal Cardio Rate: regular rate Rhythm: regular rhythm GI Inspection: obesity Palpation: soft, no masses, no hepatosplenomegaly, nontender Rectal Exam: other Other: Rectal exam deferred. Extrem General: no clubbing, cyanosis or edema, normal to inspection Assessment AND Plan Problems 1. History of esophagitis Z87.19 2. GERD with esophagitis K21.0 Plan I have discussed the above with the patient. I have offered the patient esophagogastroduodenoscopy for evaluation. I have explained the risks/benefits of the procedure and described the procedure. I have discussed the risks with the patient, including but not limited to: infection, bleeding, perforation of the GI tract requiring emergency surgery, inability to complete the procedure, injury to any internal organs, complications of anesthesia, etc. - the patient understands and agrees to proceed. I have answered all the patient's questions to the patient's satisfaction and the patient has no further questions. The patient has been given instructions for the colon cleansing preparation. Patient was diagnosed with a TIA in June 2018 she underwent an MRI which did show a lacunar infarct. She has been treated with Plavix and aspirin. We will have her off her Plavix prior to the procedure. She will remain on her aspirin. Coding Level of Care Code Off vis,new,level 3 Diagnoses History of esophagitis Z87.19 GERD with esophagitis K21.0 10/24/18 0907 <Electronically signed by Hussain Wild MD> Date Hussain Wild MD Cosigner Signature: Date (if applicable) CC: Stephon Wang MD CBC W/DIFF, AUTOMATED Collected: 10/20/2018 Status: F Source: [place] 8:38 AM [facility] REPOSITORY TYPE CODE TESTS RESULT OUT OF RANGE REFERENCE UNITS LAB L100.1000 4.4-11.0 K/mm3 Normal WBC 5.9 LAB L100.1200 4.2-5.4 M/mm3 Normal RBC 4.28 LAB L100.1300 12.0-15.0 g/dl Normal HGB 14.3 LAB L100.1400 37-47 % Normal HCT 44.1 LAB L100.1500 81-99 fL High MCV 103.0 LAB L100.1600 27.0-32.0 pg High MCH 33.4 LAB L100.1700 32-36 g/gl Normal MCHC 32.4 LAB L100.1810 11.6-14.6 % Normal RDW CV 14.3 LAB L100.1820 35.1-43.9 fl High RDW SD 53.8 LAB L100.1900 150-450 K/mm3 Normal PLT 178 LAB L100.2000 6.2-12.0 fl Normal MPV 11.6 LAB L100.2100 47-70 % Normal NEUT% 49.2 LAB L100.2200 19-41 % Normal LY% 36.9 LAB L100.2300 0-10 % High MONO% 10.5 LAB L100.2400 0-5 % Normal EO% 2.4 LAB L100.2500 0-1 % Normal BASO% 0.7 LAB L100.2550 0.0-0.9 % Normal IM GRAN % 0.300 Result Comment: IG% - Immature Granulocytes (promyelocytes, myelocytes and metamyelocytes) > 1% indicates that a LEFT SHIFT is Present. LAB L100.2620 2.0-7.7 X10 3/uL Normal Absolute Neut 2.9 LAB L100.2720 0.83-4.51 X10 3/ul Normal Absolute Lymph 2.19 Performed By: #### L100.0100 #### [facility] [address] [place], [address] COMPREHENSIVE METABOLIC Collected: 10/20/2018 Status: F Source: [place] 8:38 AM [facility] REPOSITORY TYPE CODE TESTS RESULT OUT OF RANGE REFERENCE UNITS LAB L501.0100 74-106 mg/dL High GLU 133 Result Comment: Fasting Glucose result greater than or equal to 126 mg/dL suggests DIABETES MELLITUS per A.D.A. criteria. Please note revised GLUCOSE reference range effective 2017. LAB L501.1000 7-18 mg/dL Normal BUN 16 LAB L501.1100 0.55-1.02 mg/dL High CREAT,SERUM 1.08 Result Comment: The validity of the calculated GFR AND GFRAA in patients over 70 years has not been determined. Clinical correlation is essential. LAB L501.1110 >60 mL/min Low EST GFR 56 Result Comment: Non- GFR Calc LAB L501.1115 >60 mL/min Normal EST GFR - AA 68 Result Comment: GFR Calc LAB L501.1300 10-20 RATIO Normal BUN/CRE 14.8 LAB L501.1500 6.4-8.2 g/dL T Normal PROT 7.5 LAB L501.1800 3.2-5.0 g/dL Normal ALB 4.0 LAB L501.1950 2.2-4.2 g/dL Normal GLOB 3.5 LAB L501.2000 0.9-2.4 RATIO Normal A/G 1.1 LAB L501.2200 8.5-10.1 mg/dL CA Normal 9.0 LAB L501.4100 15-37 U/L High AST 69 LAB L501.4305 45-117 U/L Normal ALK P 83 LAB L501.4405 13-56 U/L High ALT 72 LAB L501.4600 0.20-1.00 mg/dL T Normal BILI 0.80 LAB L501.5300 136-145 mmol/L NA Normal 140 LAB L501.5600 3.5-5.1 mmol/L K Normal 3.7 LAB L501.5900 98-107 mmol/L CL Normal 104 LAB L501.6100 21.0-32.0 mmol/L Normal CO2 24.0 LAB L501.6200 5-15 Normal GAP 12 Performed By: #### L500.4050 #### [facility] [address] [place], [place], [address] CBC W/DIFF, AUTOMATED Collected: 10/02/2018 Status: F Source: [place] 4:42 PM [facility] REPOSITORY TYPE CODE TESTS RESULT OUT OF RANGE REFERENCE UNITS LAB L100.1000 4.4-11.0 K/mm3 Normal WBC 8.3 LAB L100.1200 4.2-5.4 M/mm3 Normal RBC 4.27 LAB L100.1300 12.0-15.0 g/dl Normal HGB 14.5 LAB L100.1400 37-47 % Normal HCT 43.4 LAB L100.1500 81-99 fL High MCV 101.6 LAB L100.1600 27.0-32.0 pg High MCH 34.0 LAB L100.1700 32-36 g/gl Normal MCHC 33.4 LAB L100.1810 11.6-14.6 % Normal RDW CV 14.4 LAB L100.1820 35.1-43.9 fl High RDW SD 52.6 LAB L100.1900 150-450 K/mm3 Normal PLT 182 LAB L100.2000 6.2-12.0 fl Normal MPV 11.1 LAB L100.2100 47-70 % Low NEUT% 46.3 LAB L100.2200 19-41 % Normal LY% 40.4 LAB L100.2300 0-10 % High MONO% 10.2 LAB L100.2400 0-5 % Normal EO% 2.2 LAB L100.2500 0-1 % Normal BASO% 0.7 LAB L100.2550 0.0-0.9 % Normal IM GRAN % 0.200 Result Comment: IG% - Immature Granulocytes (promyelocytes, myelocytes and metamyelocytes) > 1% indicates that a LEFT SHIFT is Present. LAB L100.2620 2.0-7.7 X10 3/uL Normal Absolute Neut 3.8 LAB L100.2720 0.83-4.51 X10 3/ul Normal Absolute Lymph 3.35 Performed By: #### L100.0100 #### [facility] [address] [place], [place], [address] CRP Collected: 10/02/2018 Status: F Source: [place] 4:42 PM [facility] REPOSITORY TYPE CODE TESTS RESULT OUT OF RANGE REFERENCE UNITS LAB L501.6710 0.0-3.0 mg/L Normal < 2.90 C-REACTIVE PROT Result Comment: C-Reactive Protein (CRP) provides useful information for the diagnosis, therapy and monitoring of inflammatory processes and associated diseases. For the evaluation of Relative Risk for Cardiovascular Disease, a High Sensitivity CRP (HSCRP) should be ordered. Performed By: #### L501.6710 #### [facility] [address] [place], [place], [address] ANGIOTENSIN CONVERT Collected: 10/02/2018 Status: F Source: [place] 4:42 PM [facility] REPOSITORY TYPE CODE TESTS RESULT OUT OF RANGE REFERENCE UNITS LAB L3100.6900 14-82 U/L Normal YADY 33020 56 Performed By: #### L3100.6900, L3100.7700, L3400.8000 #### [facility] (refer to report for specific site) refer to report for address and phone number ASO TITER Collected: 10/02/2018 Status: F Source: [place] 4:42 PM [facility] REPOSITORY TYPE CODE TESTS RESULT OUT OF RANGE REFERENCE UNITS LAB L3100.7700 0.0-200.0 IU/mL Normal ASO 6031 27.1 Result Comment: [facility] [place] [id number] Chimney Builder: Tim Isaac PhD, Phone: [phone] Performed By: #### L3100.6900, L3100.7700, L3400.8000 #### [facility] (refer to report for specific site) refer to report for address and phone number QUANTIFERON TB-GOLD+ Collected: 10/02/2018 Status: F Source: [place] 4:42 PM [facility] REPOSITORY TYPE CODE TESTS RESULT OUT OF RANGE REFERENCE UNITS LAB L3400.8025 . Normal QFT TB Comment GOLD Result Comment: The QuantiFERON-TB Gold Plus result is determined by subtracting the Nil value from either TB antigen (Ag) tube. The mitogen tube serves as a control for the test. LAB L3400.8035 . IU/mL Normal QFT TB1+ AG 0.02 [facility] L3400.8045 . IU/mL Normal QFT TB2+ AG 0.03 [facility] L3400.8055 . IU/mL Normal QFT NIL VALUE 0.03 LAB L3400.8065 . IU/mL Normal QFT MITOGEN > 10.00 [facility] L3400.8075 Negative Normal QFT TB POS Negative CRIT Result Comment: The specimen received for QuantiFERON testing was incubated by the ordering institution. Specific procedures outlined in our Directory of Services and in the package insert for the QuantiFERON Gold (In Tube) test must be followed to enable for proper stimulation of cells for the production of interferon gamma. Performed By: #### L3100.6900, L3100.7700, L3400.8000 #### [facility] (refer to report for specific site) refer to report for address and phone number CONSULTATION Observed: 07/25/2018 Status: F Source: [place] 1:01 PM [facility] REPOSITORY [facility] Medical Records Department [address] [place] [address] Consultation 07/10/18 1054 MR#: [id number] Acct: [id number] Name: VALERIE MARTÍNEZ Rep #: [id number] : 1965 52 From: Coni Gr MD PCP: Stephon Wang MD Status: DIS DEBBI Y Location: [place] [address] Problem List (1) Benign hypertension Status: Chronic Reason for Consult Date of Consultation: 07/10/18 Reason for Consultation: ? stroke like symptoms. History of Present Illness: The patient is a 52 year old CF with PMH HTN, HLD,borderline DM, RA, hypothyroidism, H/O low back surgery, H/O provoked DVT post surgery, ? H/O seizures, JOSUE on CPAP admitted with episode of feeling of her neck drop with shivering on top of the head, she was at work when this happened at around 9:30 AM yesterday (07/09/18), was seen by a nurse and her BP was high in 170 systolics per documentation, she was told she may have had facial droop but she was not sure about the same and felt her face is full, but symptoms only last for a few seconds. Denies any BALDERAS, visual disturbances, sensory loss, or focal motor weakness. Per patient she had seizure about 30 yrs ago, was on some AED but did not have any seizures in the last 30 yrs and is not non any AED at present. Denies any witnessed seizure. CT head on admission reported nothing acute but possible old thalamic stroke, MRI brain reported to show old right thalamic stroke, and CTA head/neck did not show any hemodynamic stenosis or occlusion. Past Medical History Past Medical History (Chronic Problems): Chronic Problems Tobacco use disorder (Chronic) Rheumatoid arthritis (Chronic) Obesity (Chronic) Hypothyroidism (Chronic) Benign hypertension (Chronic) Allergies fluorescein Allergy (Severe, Verified 07/09/18 12:08) Anaphylaxis hydroxychloroquine sulfate [From Plaquenil] Allergy (Verified 07/09/18 12:08) Angioedema Home Medications: Ambulatory Orders Medication Instructions Recorded Etanercept [Enbrel] 50 mg SQ [place] 06/17/14 Levothyroxine [Synthroid] 75 mcg PO DAILY 06/17/14 Metformin HCl [Glucophage] 500 mg PO BIDCM 06/17/14 Surgical History: tonsillectomy, - - back surgery Psychiatric History: No pertinent psych hx SOLE CONDITIONER History: No pertinent SOLE CONDITIONER history Lives: Alone - lives in friends upper house Smoking Status: Current some day smoker Tobacco Use: Cigarettes Alcohol: Heavy - drinks a small bottle of wine daily Drugs: None - *Family History Maternal History Items: Heart Disease, Hypertension Paternal History Items: High Cholesterol, Heart Disease, Hypertension Review of Systems Constitutional: Reports: - - complete ROS negative except as documented in HPI - Physical Exam General: Alert HEENT: Normocephalic Neck: Supple Lungs: Normal air movement Cardiovascular: Normal S1, Normal S2 Abdomen: Bowel Sounds Present Extremities: No cyanosis Musculoskeletal: No Tenderness to Palpation of Joints or Extremities Neurological: - - consious, alert, AoAx3, CN 2-12 grossly intact, power 5/5 all 4 extremities, no sensory loss, no cerebellar signs, Reflexes + B/L B/S/T/K/A, gait deferred. Psych/Mental Status: Normal Affect Vital Signs Temp Pulse Resp BP Pulse Ox 97.2 F L 77 16 128/71 H 95 07/10/18 08:21 07/10/18 08:21 07/10/18 08:21 07/10/18 08:21 07/10/18 08:21 Oxygen Delivery Method Room Air Weight: 123.377 kg Body Mass Index (BMI) 42.7 Intake and Output for Last 24 Hours Intake Total 400 / 400 100 / 100 Balance 400 / 400 100 / 100 Laboratory Tests Past 24 Hrs WBC 6.0 RBC 4.70 Hgb 15.8 H Hct 46.2 MCV 98.3 MCH 33.6 H MCHC 34.2 RDW 12.6 WBC 5.7 RBC 4.64 Hgb 15.6 H Hct 46.2 MCV 99.6 H WBC RBC Hgb Hct MCV MCH MCHC RDW POC Glucose POC Glucose 139 H 136 H 107 Assessment/Plan All Active Problems TIA (transient ischemic attack) (Acute) The patient is a 52 year old CF with PMH HTN, HLD,borderline DM, RA, hypothyroidism, H/O low back surgery, H/O provoked DVT post surgery, ? H/O seizures, JOSUE on CPAP admitted with episode of feeling of her neck drop with shivering on top of the head, she was at work when this happened at around 9:30 AM yesterday (07/09/18), was seen by a nurse and her BP was high in 170 systolics per documentation, she was told she may have had facial droop but she was not sure about the same and felt her face is full, but symptoms only last for a few seconds. Denies any BALDERAS, visual disturbances, sensory loss, or focal motor weakness. Per patient she had seizure about 30 yrs ago, was on some AED but did not have any seizures in the last 30 yrs and is not non any AED at present. Denies any witnessed seizure. CT head on admission reported nothing acute but possible old thalamic stroke, MRI brain reported to show old right thalamic stroke, and CTA head/neck did not show any hemodynamic stenosis or occlusion. Impression Unlikely to be TIA at present H/O Old right thalamic stroke Plan -MRI brain images reviewed -CTA head/neck reviewed -Labs reviewed -On ASA and statin, started this admission, can continue for secondary stroke prevention -Patient counseled not to smoke -Goal BP < 130/80 mmHg -Fall precautions -GI/DVT prophylaxis -Further medical management per primary team -Please call with questions if any -Thank you for allowing us to participate in patient's care and management I spent 60 minutes taking history, doing physical examination, reviewing medical records, coordinating care and counseling the patient. Code Visit Inpatient E AND M: 34197 Init Hosp L3 07/25/18 1301 <Electronically signed by Coni Gr MD> Date Coni Gr MD Cosigner Signature (if applicable): Date CC: Zi Gr MD; Stephon Wang MD Signed 12 LEAD ELECTROCARDIOGRAM Observed: 07/11/2018 Status: F Source: [place] 1:53 PM [facility] REPOSITORY [facility] Cardiovascular Services [address] [place] [id number] 12 Lead EKG 07/09/18 1221 MR#: [id number] Acct: [id number] Name: VALERIE MARTÍNEZ Rep #: [id number] : 1965 52 From: Dequan Reynaga MD Attending Dr: Hugh Lopez MD Status: DIS DEBBI Ordering Dr: Hussain Rhodes MD Date: 07/09/18 Location: [facility] Sex: F C Admitted: 07/09/18 Test Reason : NEURO SYMPTOMS Blood Pressure : / mmHG Vent. Rate : 096 BPM Atrial Rate : 096 BPM P-R Int : 164 ms QRS Dur : 076 ms QT Int : 326 ms P-R-T Axes : 040 036 -15 degrees QTc Int : 411 ms Normal sinus rhythm Nonspecific T wave abnormality Abnormal ECG Confirmed by RONNELL LIMON, DEQUAN ([id number]), photo editor KEVAN JACOBS ([id number]) on 07/11/2018 1:53:05 PM Referred By: DC Confirmed By:DEQUAN REYNAGA MD 07/11/18 1353 Date Dequan Reynaga MD CC: Hussain Rhodes MD; Hugh Lopez MD; Stephon Wang MD Signed ECHO, COMPLETE W/ Observed: 07/10/2018 Status: F Source: [place] CONTRAST 12:16 PM [facility] REPOSITORY [facility] Cardiovascular Services [address] [place] [address] Echo Complete W/ Contrast 07/09/18 1521 MR#: [id number] Acct: [id number] Name: VALERIE MARTÍNEZ Rep #: [id number] : 1965 52 From: Hussain Ellsworth MD Attending Dr: Hugh Lopez MD Status: DIS DEBBI Ordering Dr: Danae Tellez MD Date: 07/09/18 Location: [facility] Sex: F C Admitted: 07/09/18 Reason For Study: Emboli Procedure This was a 2D Doppler, Color Flow transthoracic echocardiogram. The study was technically difficult. Exam performed portable in patient room. Left Ventricle Normal size and thickness. The estimated ejection fraction is 65 %. Normal diastology for age. No regional wall motion abnormalities noted. Right Ventricle Normal size and thickness. Normal systolic function. Atria Normal left atrium. Normal right atrium. Normal atrial septum. Mitral Valve The mitral valve is structurally normal. No prolapse or stenosis seen. Tricuspid Valve Normal tricuspid valve. Trivial tricuspid valve insufficiency. Right ventricular systolic pressure estimated to be 33 mmHg. Aortic Valve Trisinus/trileaflet aortic valve. Normal aortic valve. Pulmonic Valve The pulmonic valve is not well visualized. Great Vessels Normal aortic root. Normal arch. Normal inferior vena cava. Inferior vena cava collapse with sniff. Pericardium/Pleural No pericardial effusion. Medication Performed a rapid injection of agitated mix of 9 cc saline and 1cc air to assess for atrial septal defect. Definity0.3ml given slow IV push to enhance endocardial definition. MMode/2D Measurements AND Calculations LVIDd: 4.6 cm IVSd: 1.1 cm Ao root diam: 3.2 cm LVIDs: 2.9 cm LVPWd: 0.83 cm LA dimension: 3.4 cm RVDd: 2.9 cm FS: 36.7 % LAV(MOD-bp): 46.4 ml LVAd ap4: 30.4 cm2 SV(MOD-sp4): 67.5 ml LAV(MOD-bp) Indexed: 20.0 ml/m2 EDV(MOD-sp4): 98.3 ml LAV(MOD-sp2): 49.4 ml EDV(sp4-el): 98.8 ml LAV(MOD-sp4): 42.3 ml LVAs ap4: 13.9 cm2 ESV(MOD-sp4): 30.8 ml ESV(sp4-el): 31.3 ml EF(MOD-sp4): 68.7 % EF(sp4-el): 68.3 % SV(sp4-el): 67.4 ml LA A4 area: 16.1 cm2 RA A4 area: 10.5 cm2 Doppler Measurements AND Calculations MV E max aiden: 75.0 cm/sec Lat Peak E' Aiden: 11.2 cm/sec Med Peak E' Aiden: 7.4 cm/sec MV A max aiden: 81.1 cm/sec E/E' lat: 6.7 E/E' med: 10.2 MV E/A: 0.92 Ao V2 max: 134.2 cm/sec LV V1 max: 105.3 cm/sec PA V2 max: 92.5 cm/sec Ao max P.2 mmHg LV V1 max P.4 mmHg Ao V2 mean: 97.6 cm/sec Ao mean P.1 mmHg Ao V2 VTI: 27.1 cm TR max aiden: 264.5 cm/sec TR max P.0 mmHg Interpretation Summary The estimated ejection fraction is 65 %. Normal diastology for age. Trivial tricuspid valve insufficiency. Right ventricular systolic pressure estimated to be 33 mmHg. Compared to echo report dated 12/30/2009, no appreciable changes noted. The study was technically difficult. Contrast injection was performed. Ordering Physician: Danae Tellez Referring Physician: Stephon Wang Performed By: Caterina Chase RDCS, RVMikhail 07/10/18 1215 Date Hussain Ellsworth MD CC: Hugh Lopez MD; Stephon Wang MD; Danae Tellez MD Date Dictated: 07/09/18 1521 Date Transcribed: 07/10/18 1215 Business Office Representative: Signed DISCHARGE SUMMARY Observed: 07/10/2018 Status: F Source: [place] 9:19 AM [facility] REPOSITORY [facility] Medical Records Department [address] [place] [address] Discharge Summary 07/10/1815 MR#: [id number] Acct: [id number] Name: VALERIE MARTÍNEZ Rep #: [id number] : 1965 52 From: Hugh Lopez MD PCP: Stephon Wang MD Status: ADM IN Location: [place] [address] Discharge Date and Diagnosis - Problem List Patient Problems: Active and Suspected Problems TIA (transient ischemic attack) (Acute) Date of Admission: 07/09/18 Date of Discharge: 07/10/18 - Primary Discharge Diagnosis Active and Suspected Problems TIA (transient ischemic attack) (Acute) - Secondary Discharge Diagnosis Chronic Problems Tobacco use disorder (Chronic) Rheumatoid arthritis (Chronic) Obesity (Chronic) Hypothyroidism (Chronic) Benign hypertension (Chronic) Hospital Course and Treatment Imaging Results: Clinical Impression(s) from Imaging Studies Brain CT 07/09/18 12:29 IMPRESSION: Focal area of decreased attenuation in the posteromedial aspect of the right temporal lobe as described. Correlation with MRI is recommended for further evaluation. Electronically Signed: Primitivo Pérez MD at 13:01 EDT Tel [phone], Service support , Chest X-Ray 07/09/18 12:46 IMPRESSION: Stable pleural parenchymal changes at the right lung base. Electronically Signed: Primitivo Pérez MD at 13:02 EDT Tel [phone], Service support , Brain MRI 07/09/18 15:04 IMPRESSION: Signal abnormality in the right temporal lobe corresponding to the CT finding is most consistent with a remote lacunar infarct. Electronically Signed: Mary Powers MD at 20:58 EDT Tel , Service support , Head CTA 07/09/18 15:04 IMPRESSION: Normal bilateral cervical carotid and vertebral arteries. Electronically Signed: Tian Booth MD at 19:26 EDT , Service support , Neck CTA 07/09/18 15:04 IMPRESSION: Normal bilateral cervical carotid and vertebral arteries. Electronically Signed: Tian Booth MD at 19:26 EDT , Service support , Summary of Care Provided: The patient is a 52 year old F who presented with loss of neck tone and parasthesia 1. Transient ischemic attack. Patient was placed in a monitored bed underwent subsequent evaluation with an MRI which only showed Signal abnormality in the right temporal lobe corresponding to the CT finding is most consistent with a remote lacunar infarct. Patient was discharged home on aspirin as well as statin therapy 2. History of panic attacks patient was instructed to follow- up with PCP for possible initiation of SSRI 3. Hypertension-blood pressure controlled, home medications continued with dose adjustment as needed 4. Hypothyroidism-patient is on levothyroxine home dose continued 5. Morbid obesity with BMI of 42; lifestyle modification including weight loss advised 6. GERD with history of nisin fundoplication 7. Rheumatoid arthritis patient is stable on etanercept 8. Acute kidney injury secondary to dehydration resolved with rehydration 9. Tobacco dependence counseled on cessation, offered nicotine patch for tobacco cravings 10. DVT prophylaxis SC heparin Physical examination at the time of discharge; GENERAL: cooperative and in no apparent distress. HEENT: Atraumatic moist oral mucosa EYES; Anicteric, Normal Conjuctiva NECK; supple, normal thyroid, no distended JVD. RESPIRATORY: Clear to auscultation bilaterally, CARDIOVASCULAR: Regular S1 S2, no audible murmurs GI: soft, non-tender, normoactive bowel sounds, : No Renal angle tenderness; No arroyo EXTREMITIES: No edema, no clubbing, no cyanosis. NEURO: Awake; no lateralizing signs. SKIN: No Rash PSYCH; Normal affect Time spent on discharge; 35 minutes Discharge Activity: Return to Normal Activity Home Medications: Medications to take at Discharge Etanercept [Enbrel] 50 mg SQ [place] 06/17/14 Levothyroxine [Synthroid] 75 mcg PO DAILY 06/17/14 Metformin HCl [Glucophage] 500 mg PO BIDCM 06/17/14 Bisoprolol Fumarate [Zebeta (Beta Rommel)] 10 mg PO DAILY 07/09/18 Cholecalciferol (Vitamin D3) [Vitamin D3] 2,000 units PO DAILY 07/09/18 Clonidine HCl 0.1 - 0.2 mg PO DAILY 07/09/18 Cyclobenzaprine [Flexeril] 10 mg PO PRN PRN 07/09/18 Peg 400/Hypromellose/Glycerin [Visine Tears Drops] 1 drop EACH EYE DAILY 07/09/18 Prednisone 5 mg PO DAILY PRN 07/09/18 Spironolactone 100 mg PO DAILY 07/09/18 Aspirin [Aspirin, Baby] 81 mg PO DAILY@0800 #90 tab.chew 07/10/18 Atorvastatin Calcium 40 mg PO DAILY #90 tablet 07/10/18 Following Prescrptions Were Given to Patient: Aspirin [Aspirin, Baby] 81 mg PO DAILY@0800 #90 tab.chew Atorvastatin Calcium 40 mg PO DAILY #90 tablet Primary Care Physician: Stephon Wang MD [Primary Care Provider] - Please follow up with your Primary Care Physician in: [place] 5- 7 DAYS Disposition: Home Minutes spent on discharge:: 35 Patient Condition:: Stable Medical Necessity - Tobacco Use Smoking Status: Current some day smoker Tobacco Use: Cigarettes Meaningful Use Info Meaningful Use Diagnoses (Choose all that apply): None applicable Code Visit OBSV E AND M: 27907 Observation care discharge 07/10/18918 <Electronically signed by Hugh Lopez MD> Date Hugh Lopez MD Cosigner Signature (if applicable): Date CC: Hugh Lopez MD; Stephon Wang MD Signed DISCHARGE INSTRUCTION Observed: 07/10/2018 Status: F Source: [place] 9:14 AM [facility] REPOSITORY [facility] Medical Records Department [address] [place] [address] Instructions for Home/Discharge Instructions 07/10/18912 MR#: [id number] Acct: [id number] Name: VALERIE MARTÍNEZ Rep #: [id number] : 1965 52 From: Hugh Lopez MD PCP: Stephon Wang MD Status: ADM IN - Discharge Diagnoses Current Active Problems: Current Active and Chronic Problems TIA (transient ischemic attack) (Acute) You will use the following diet at home:: Calorie/Carbohydrate Controlled (specify 1200, 1400, etc) Discharge Activity: Return to Normal Activity Allergies/Adverse Reactions: Allergies fluorescein Allergy (Severe, Verified 07/09/18 12:08) Anaphylaxis hydroxychloroquine sulfate [From Plaquenil] Allergy (Verified 07/09/18 12:08) Angioedema Medications to take at Discharge Etanercept [Enbrel] 50 mg SQ [facility] 06/17/14 Levothyroxine [Synthroid] 75 mcg PO DAILY 06/17/14 Metformin HCl [Glucophage] 500 mg PO BIDCM 06/17/14 Bisoprolol Fumarate [Zebeta (Beta Rommel)] 10 mg PO DAILY 07/09/18 Cholecalciferol (Vitamin D3) [Vitamin D3] 2,000 units PO DAILY 07/09/18 Clonidine HCl 0.1 - 0.2 mg PO DAILY 07/09/18 Cyclobenzaprine [Flexeril] 10 mg PO PRN PRN 07/09/18 Peg 400/Hypromellose/Glycerin [Visine Tears Drops] 1 drop EACH EYE DAILY 07/09/18 Prednisone 5 mg PO DAILY PRN 07/09/18 Spironolactone 100 mg PO DAILY 07/09/18 Aspirin [Aspirin, Baby] 81 mg PO DAILY@0800 #90 tab.chew 07/10/18 Atorvastatin Calcium 40 mg PO DAILY #90 tablet 07/10/18 The following prescriptions were given: Aspirin [Aspirin, Baby] 81 mg PO DAILY@0800 #90 tab.chew Atorvastatin Calcium 40 mg PO DAILY #90 tablet Primary Care Physician: Stephon Wang MD [Primary Care Provider] - Please follow up with your Primary Care Physician in: [place] 5- 7 DAYS Test Results: Test results from this visit will be discussed in further detail at your follow-up appointment, if applicable. Proposed Discharge Date: 07/10/18 07/10/18913 <Electronically signed by Hugh Lopez MD> Date Hugh Lopez MD CC: Zi Gr MD; Stephon Wang MD BASIC METABOLIC Collected: 07/10/2018 Status: F Source: [place] PROFILE (BMP) 7:00 AM [facility] REPOSITORY Order Comment: REDRAW. PREVIOUS SPECIMEN REJECTED DUE TO QNS. 07/10/18613 Kay Del Valle. TYPE CODE TESTS RESULT OUT OF RANGE REFERENCE UNITS LAB L501.0100 74-106 mg/dL High GLU 135 Result Comment: Fasting Glucose result greater than or equal to 126 mg/dL suggests DIABETES MELLITUS per A.D.A. criteria. Please note revised GLUCOSE reference range effective 2017. LAB L501.1000 7-18 mg/dL Normal BUN 15 LAB L501.1100 0.55-1.02 mg/dL High CREAT,SERUM 1.07 Result Comment: The validity of the calculated GFR AND GFRAA in patients over 70 years has not been determined. Clinical correlation is essential. LAB L501.1110 >60 mL/min Low EST GFR 57 Result Comment: Non- GFR Calc LAB L501.1115 >60 mL/min Normal EST GFR - AA 69 Result Comment: GFR Calc LAB L501.1255 ml/min Normal Estimated CRCL 57.58 LAB L501.1300 10-20 RATIO Normal BUN/CRE 14.0 LAB L501.2200 8.5-10 mg/dL Normal .1 CA 8.7 LAB L501.5300 136-14 mmol/L Normal 5 NA 137 LAB L501.5600 3.5-5. mmol/L Normal 1 K 4.2 Result Comment: Slight Hemolysis, Result may be falsely increased. LAB L501.5900 98-107 mmol/L Normal CL 105 LAB L501.6100 21.0-32.0 mmol/L Normal CO2 23.0 LAB L501.6200 5-15 Normal 9 GAP Performed By: #### L500.2500 #### [facility] [address] [place], [place], [address] BEDSIDE GLUCOSE Collected: 07/10/2018 Status: F Source: [place] 6:45 AM [facility] REPOSITORY TYPE CODE TESTS RESULT OUT OF REFERENCE UNITS RANGE LAB L501.080 70-110 mg/dL High BEDSIDE GLU 139 Result Comment: MANAGEMENT OF PATIENT CARE PER NURSING PROTOCOL Performed By: #### L501.080 #### [facility] Point of Care [address] [facility] [place] [address] CBC W/DIFF, AUTOMATED Collected: 07/10/2018 Status: F Source: [place] 5:30 AM [facility] REPOSITORY TYPE CODE TESTS RESULT OUT OF RANGE REFERENCE UNITS LAB L100.1000 4.4-11.0 K/mm3 Normal WBC 5.7 LAB L100.1200 4.2-5.4 M/mm3 Normal RBC 4.64 LAB L100.1300 12.0-15.0 g/dl High HGB 15.6 LAB L100.1400 37-47 % Normal HCT 46.2 LAB L100.1500 81-99 fL High MCV 99.6 LAB L100.1600 27.0-32.0 pg High MCH 33.6 LAB L100.1700 32-36 g/gl Normal MCHC 33.8 LAB L100.1810 11.6-14.6 % Normal RDW CV 13.1 LAB L100.1820 35.1-43.9 fl High RDW SD 47.4 LAB L100.1900 150-450 K/mm3 Low PLT 84 LAB L100.2000 6.2-12.0 fl Normal MPV 11.6 LAB L100.2100 47-70 % Low NEUT% 44.5 LAB L100.2200 19-41 % High LY% 43.0 LAB L100.2300 0-10 % Normal MONO% 9.6 LAB L100.2400 0-5 % Normal EO% 1.9 LAB L100.2500 0-1 % Normal BASO% 0.7 LAB L100.2550 0.0-0.9 % Normal IM GRAN % 0.300 Result Comment: IG% - Immature Granulocytes (promyelocytes, myelocytes and metamyelocytes) > 1% indicates that a LEFT SHIFT is Present. LAB L100.2620 2.0-7.7 X10 3/uL Normal Absolute Neut 2.5 LAB L100.2720 0.83-4.51 X10 3/ul Normal Absolute Lymph 2.46 Performed By: #### L100.0100 #### [facility] [address] [place], [address] BEDSIDE GLUCOSE Collected: 07/09/2018 Status: F Source: [place] 9:07 PM [facility] REPOSITORY TYPE CODE TESTS RESULT OUT OF REFERENCE UNITS RANGE LAB L501.080 70-110 mg/dL High BEDSIDE GLU 136 Result Comment: MANAGEMENT OF PATIENT CARE PER NURSING PROTOCOL Performed By: #### L501.080 #### [facility] Point of Care [address] [place] [address] HISTORY AND PHYSICAL Observed: 07/09/2018 Status: F Source: [place] EXAM 6:52 PM [facility] REPOSITORY [facility] Medical Records Department [address] [place] [address] History and Physical 07/09/18 1412 MR#: [id number] Acct: [id number] Name: VALERIE MARTÍNEZ Rep #: [id number] : 1965 52 From: Danae Tellez MD PCP: Stephon Wang MD Status: ADM IN Location: [place] [address] Problem List (1) TIA (transient ischemic attack) Status: Acute History of Present Illness Date of Admission: 07/09/18 Chief Complaint: loss of neck tone and parasthesia The patient is a 52 year old F with past medical history of benign essential hypertension, rheumatoid arthritis and hypothyroidism as well as borderline diabetes mellitus. She was admitted by the ED on 07/09/2018 with a complaint of brief loss of tone in her neck and numbness over her face. Patient was at work when she suddenly noticed that her neck had become flaccid and her head dropped to her chin. She also noticed that she had numbness over her head, spreading down to her face. This lasted only seconds. She went to the nurse at her workplace and her blood pressure was checked and she said her systolic was in the 170s. She therefore left work and went home and called her primary care doctor went to see him in his office. In his office her blood pressure was down to the 130s systolic and her symptoms had resolved. However out of an abundance of caution, she was sent to the ED by her primary care doctor to rule out a stroke. Patient has never had a stroke before and denied any blurred vision, loss of consciousness, any weakness in any focal extremity, any fever or chills, any chest pain, any shortness of breath, and palpitations, any abdominal pain, any diarrhea vomiting. 12 point review of systems otherwise negative. In the ED, vitals were noted to be temperature of 98.5 Fahrenheit, pulse rate of 84 and respiratory rate of 18 with blood pressure 130/119. BMP was only significant for creatinine of 1.24 which is what her baseline initial troponin was negative. CBC was unremarkable. CT of the brain without contrast showed a focal area of decreased attenuation in the posterior medial aspect of the right temporal lobe. She has been admitted to be worked up for stroke. [] Past Medical History Past Medical History (Chronic Problems): Chronic Problems Tobacco use disorder (Chronic) Rheumatoid arthritis (Chronic) Obesity (Chronic) Hypothyroidism (Chronic) Benign hypertension (Chronic) Allergies fluorescein Allergy (Severe, Verified 07/09/18 12:08) Anaphylaxis hydroxychloroquine sulfate [From Plaquenil] Allergy (Verified 07/09/18 12:08) Angioedema Home Medications: Ambulatory Orders Medication Instructions Recorded Etanercept [Enbrel] 50 mg SQ [place] 06/17/14 Levothyroxine [Synthroid] 75 mcg PO DAILY 06/17/14 Metformin HCl [Glucophage] 500 mg PO BIDCM 06/17/14 Bisoprolol Fumarate [Zebeta] 10 mg PO DAILY 07/09/18 Surgical History: tonsillectomy, - - back surgery Psychiatric History: No pertinent psych hx SOLE CONDITIONER History: No pertinent SOLE CONDITIONER history Lives: Alone Smoking Status: Current some day smoker Tobacco Use: Cigarettes - one pack weekly Alcohol: Heavy - drinks a small bottle of wine daily Drugs: None - *Family History Maternal History Items: Heart Disease, Hypertension Paternal History Items: High Cholesterol, Heart Disease, Hypertension Review of Systems Constitutional: Denies: Chills, Fever, Malaise, Weight Change Eyes: Denies: Blurred vision HEENT: Denies: Head Aches, Sinus Congestion, Sinus Drainage Cardiovascular: Denies: Chest Pain, Palpitations, Paroxysmal Noc. Dyspnea, Syncope Respiratory: Denies: Cough, Shortness of breath at rest, Sputum production Gastrointestinal: Denies: Abdominal Pain, Nausea, Vomiting Genitourinary: Denies: Dysuria Musculoskeletal: Denies: Joint Pain, Joint Tenderness, Muscle pain, Neck Pain Skin: Denies: Rash, Wounds Neurological: Denies: Double vision, Slurred speech, Focal weakness, Headaches, Numbness, Tingling, Tremor Psychiatric: Denies: Anxiety, Depression, Homicidal Ideations, Suicidal Ideations Hematologic/ Lymphatic: Denies: Easy Bruising, Easy Bleeding VTE Information - Inpt Only VTE Present on Admission: No VTE Mechan Device Prophylaxis: SCD's VTE Pharm Prophylaxis ordered?: Yes Patient Problems: Active and Suspected Problems TIA (transient ischemic attack) (Acute) - Physical Exam General: Alert, Oriented x3, Cooperative HEENT: Atraumatic, PERRLA, EOMI, Normocephalic Oral: Moist Mucosa Neck: Supple, No JVD, Negative Carotid Bruits, No Nodes, No Nuchal Rigidity Lungs: Clear to auscultation, Normal air movement, No rhonchi, No wheeze, No rales Cardiovascular: Regular rate, Regular Rhythm, Normal S1, Normal S2, No murmurs Abdomen: Bowel Sounds Present, Soft, Non Tender, Non-Distended, No Hepato-splenomegaly Extremities: No clubbing, No cyanosis, No edema, Capillary Refill Less than 3 Seconds Skin: No rashes, No breakdown Musculoskeletal: No Tenderness to Palpation of Joints or Extremities Lymphatic: No Cervical, Supraclavicular, or Inguinal Adenopathy Neurological: Cranial nerves II-XII grossly intact, Deep Tendon Reflexes 2+/4 and Symmetrical, Neuro grossly intact, Motor Exam 5/5 strength throughout, Sensory exam intact to light touch and pain, - - NIHSS- 0 Psych/Mental Status: Normal Affect, Appropriate, Alert and oriented to time, place, person, mood and affect Vital Signs Temp Pulse Resp BP Pulse Ox 98.5 F 84 18 130/119 H 96 07/09/18 12:08 07/09/18 13:43 07/09/18 13:43 07/09/18 13:43 07/09/18 13:43 Oxygen Delivery Method Room Air Weight: 275 lb 2.19 oz Body Mass Index (BMI) 43.0 Laboratory Tests Past 24 Hrs Diagnostic Data Brain CT 07/09/18 12:29 IMPRESSION: Focal area of decreased attenuation in the posteromedial aspect of the right temporal lobe as described. Correlation with MRI is recommended for further evaluation. Electronically Signed: Primitivo Pérez MD at 13:01 EDT Tel [phone], Service support , Chest X-Ray 07/09/18 12:46 IMPRESSION: Stable pleural parenchymal changes at the right lung base. Electronically Signed: Primitivo Pérez MD at 13:02 EDT Tel [phone], Service support , Assessment/Plan All Active Problems TIA (transient ischemic attack) (Acute) 52-year-old female presenting with an brief episode of loss of tone of her neck and paresthesia of the head and face which lasted for seconds. 1. TIA * doesnt have a previous history of stroke * symptoms lasted for seconds * EKG showed NSR and nonspecific T wave changes * CT brain showed focal area of decreased attenuation in posteromedial aspect of right temporal lobe * admit to PCU for stroke workup * MRI of brain * CTA of head and neck * keep NPO until she passes bedside dysphagia test * neuro consult * PT/OT * maintain BP<130/80 * check A1c, lipid panel; 2D echo * 2. Benign essential hypertension * BP was 130/119 on admission * will resume BP meds- spironolactone, clonidine and bisoprolol * 3. Hypothyroidism: on synthroid 4. Rheumatoid arthritis * stable. On etanercept * 5. Borderline diabetes mellitus * says she has been told she has borderline DM, and is on metformin 500mg bid. * will check A1C * 6. Alcohol abuse * Drinks a small bottle of wine daily and has been doing so for the past 4 years. States he started doing it because it helps with her pain. * Alcohol withdrawal protocol with Ativan. * Monitor CIWA score. * 7. Nicotine dependence * Smokes 1 pack of cigarette daily. Counseled to quit especially in light of suspected TIA versus stroke. * nicotine patch 14mg daily * 8. CKD 3: Cr is 1.24, which is around her baseline. Will monitor 9. DVT prophylaxis: heparin Code status: full code * patient counselled about different types of code status, namely full code, DNRCC and DNRCCA. Patient elects to be full code. TOtal face to face time-17 mins * Code Visit OBSV E AND M: 26639 Initial observation care L3 Procedures: 07164 Advncd Care Plan 30 Min 07/09/18 1852 <Electronically signed by Danae Tellez MD> Date Danae Tellez MD Cosigner Signature: Date (if applicable) CC: Stephon Wang MD; Danae Tellez MD Signed BEDSIDE GLUCOSE Collected: 07/09/2018 Status: F Source: [place] 5:15 PM [facility] REPOSITORY TYPE CODE TESTS RESULT OUT OF RANGE REFERENCE UNITS LAB L501.080 70-110 mg/dL Normal BEDSIDE GLU 107 Result Comment: MANAGEMENT OF PATIENT CARE PER NURSING PROTOCOL Performed By: #### L501.080 #### [facility] Point of Care [address] [place] [address] EMERGENCY DEPARTMENT Observed: 07/09/2018 Status: F Source: [place] SUMMARY 3:37 PM [facility] REPOSITORY [facility] Medical Records Department [address] [place] [address] Emergency Department Summary 07/09/18 1343 MR#: [id number] Acct: [id number] Name: VALERIE MARTÍNEZ Rep #: [id number] : 1965 52 From: Hussain Rhodes MD PCP: Stephon Wang MD Status: ADM IN - ER Visit Summary Date of Service: 07/09/18 Chief Complaint: Abnormal sensations History of Present Illness: The patient is a 52 F referred to the emergency department for possible stroke. At around 9-930 this morning, the patient was getting coffee at work very she says her neck dropped. It sounds like her neck flexed down spontaneously. She then complained of some abnormal sensations to her forehead in the midline. She also feels fullness to her face. Her PCP called and said that he was concerned for some right sided facial droop. Patient says she never had this before. Nothing seemed to bring it on or make it worse. Nothing seems to make it better. She has a history of high blood sugars but was not formally diagnosed with diabetes. She also reports hypertension, RA, and hypothyroidism. She noted her blood pressures were in the 170s systolic when this happened Physical Examination: Afebrile and vital signs unremarkable. No acute distress. Alert and oriented. NIH stroke scale is 0. Heart regular rate and rhythm. Lungs clear bilaterally. Skin normal in color. Test Results: EKG showed sinus rhythm at a rate of 96 with nonspecific T wave changes. Chest x-ray showed stable chronic changes. CT head showed decreased attenuation in the right temporal region. CBC unremarkable. BMP, coags, troponin unremarkable. Emergency Department Course and Treatment: Patient had a stroke scale of 0. No indication for stroke team or TPA. Patient had IV access and a heart attack monitor was started. Her workup was fairly unremarkable except for the decreased attenuation in the right temporal lobe. This was discussed with the radiologist who read the images. He did not believe this was acute or consistent with her symptoms that started today this morning. Patient will need further evaluation for stroke including likely MRI and MRA. Patient will be discussed with the hospitalist and admitted for further care. On reevaluation, no new or worsening symptoms. Treatment Plan: As above Disposition: Admission Impression: 1. Ischemic stroke suspected This note was generated with [employer]beat dictation software. It may contain incorrect words, spelling, and punctuation that were not noted in review of the chart prior to signing ED Disposition - Plan for ED Patient: Chief Complaint: Neuro S/Sx Referrals: Stephon Wang MD [Primary Care Provider] - What to do if you have Problems For any increased pain, shortness of breath, bleeding, nausea or vomiting, chest pain, or any unexpected problems, contact your Primary Care Provider. Call [facility] ([phone]) or report to the closest Emergency Room. Call 911 if necessary. 07/09/18 1537 <Electronically signed by Hussain Rhodes MD> Date Hussain Rhodes MD Cosigner Signature (If Indicated): Date CC: Stephon Wang MD CTA NECK W/WO Observed: 07/09/2018 Status: F Source: [place] CONTRAST 3:05 PM [facility] REPOSITORY [facility] Imaging Services [address] [place] [address] CTA Neck W/WO Contrast MR#: [id number] Acct: [id number] Name: VALERIE MARTÍNEZ Rep #: [id number] : 1965 F 52 From: Tian Booth MD PCP: Stephon Wang MD Status: ADM IN Study: CTA Neck W/WO Contrast Date of Exam: 07/09/18 Exam# [id number] Ordering Dr: Danae Tellez MD STUDY: CTA OF THE BRAIN REASON FOR EXAM: Female, 52 years old. TIA/ CVA, weakness. Hypertension RADIATION DOSAGE (If Supplied By Facility): CTDIvol = ( 19.40 ) mGy, DLP = ( 803.87 ) mGycm TECHNIQUE: CT angiography was performed with a multi-detector CT scanner. Data acquisition was obtained from the skull base through the vertex following intravenous administration of 100 ml of Isovue 370. MIP images were reconstructed from the axial data set. Post-processing of the angiographic images was performed, with multiplanar reformation and 3D reconstruction. Individualized dose optimization techniques were used for this CT. COMPARISON: CT Brain Jul 09 2018 12:45pm FINDINGS: Normal bilateral petrous carotid arteries. There is calcified plaque formation of the right cavernous carotid artery, without a cross-sectional luminal stenosis. There is calcified plaque formation of the left cavernous carotid artery, without a cross-sectional luminal stenosis. Normal right A1 segments of the anterior cerebral artery. Normal left A1 segments of the anterior cerebral artery. Normal intact anterior communicating artery (ACOM). Normal bilateral A2 segments of the anterior cerebral arteries. Normal right M1 and M2 segments of the middle cerebral arteries, with a normal M1 bifurcation. Normal left M1 and M2 segments of the middle cerebral arteries, with a normal M1 bifurcation. There is non-visualization of the right posterior communicating artery (PCOM). There is non-visualization of the left posterior communicating artery (PCOM). Normal bilateral vertebral arteries. Normal basilar artery with a normal basilar bifurcation. The visualized bilateral superior cerebellar (SCA) arteries are normal. Normal bilateral P1, P2 and visualized P3 segments of the posterior cerebral arteries. There is no demonstrated aneurysm of the [place]. There is no demonstrated abnormality of the visualized brain. IMPRESSION: There is calcified plaque formation of the right cavernous carotid artery, without a cross-sectional luminal stenosis. There is calcified plaque formation of the left cavernous carotid artery, without a cross-sectional luminal stenosis. Electronically Signed: Tian Booth MD at 19:26 EDT , Service support , STUDY: CTA NECK WITH CONTRAST REASON FOR EXAM: Female, 52 years old. TIA/ CVA, weakness. Hypertension RADIATION DOSAGE (If Supplied By Facility): CTDIvol = ( 19.40 ) mGy, DLP = ( 803.87 ) mGycm TECHNIQUE: CT angiography with multi-detector data acquisition was performed from the aortic arch to the skull base following intravenous administration of 100mL ml of Isovue 370 contrast. MIP images were reconstructed from the axial data set. Post-processing of the angiographic images was performed, with multiplanar reformation and 3D reconstruction. Individualized dose optimization techniques were used for this CT. COMPARISON: None. FINDINGS: AORTIC ARCH: Normal visualized aortic arch. Normal origins of the brachiocephalic, left common carotid, and left subclavian arteries. RIGHT CAROTID ARTERIES: Normal right common carotid artery (CCA). Normal right common carotid bulb. Normal origin of the right internal carotid (ICA) artery without a hemodynamically significant stenosis. Normal visualized cervical portion of the right internal carotid artery. Normal origin of the right external carotid artery (ECA). LEFT CAROTID ARTERIES: Normal left common carotid artery (CCA). Normal left common carotid bulb. Normal origin of the left internal carotid (ICA) artery without a hemodynamically significant stenosis. Normal visualized cervical portion of the left internal carotid artery. Normal origin of the left external carotid artery (ECA). VERTEBRAL ARTERIES: Normal bilateral vertebral arteries. CT/CTA Neck W/WO Contrast IMPRESSION: Normal bilateral cervical carotid and vertebral arteries. Electronically Signed: Tian Booth MD at 19:26 EDT , Service support , CC: Stephon Wang MD; Danae Tellez MD Business Office Representative: Signed CTA HEAD W/WO Observed: 07/09/2018 Status: F Source: [place] CONTR[place] 3:05 PM [facility] REPOSITORY [facility] Imaging Services [address] [place] [address] CTA Head W/WO Contrast MR#: [id number] Acct: [id number] Name: VALERIE MARTÍNEZ Rep #: [id number] : 1965 F 52 From: Tian Booth MD PCP: Stephon Wang MD Status: ADM IN Study: CTA Head W/WO Contrast Date of Exam: 07/09/18 Exam# [id number] Ordering Dr: Danae Tellez MD STUDY: CTA OF THE BRAIN REASON FOR EXAM: Female, 52 years old. TIA/ CVA, weakness. Hypertension RADIATION DOSAGE (If Supplied By Facility): CTDIvol = ( 19.40 ) mGy, DLP = ( 803.87 ) mGycm TECHNIQUE: CT angiography was performed with a multi-detector CT scanner. Data acquisition was obtained from the skull base through the vertex following intravenous administration of 100 ml of Isovue 370. MIP images were reconstructed from the axial data set. Post-processing of the angiographic images was performed, with multiplanar reformation and 3D reconstruction. Individualized dose optimization techniques were used for this CT. COMPARISON: CT Brain Jul 09 2018 12:45pm FINDINGS: Normal bilateral petrous carotid arteries. There is calcified plaque formation of the right cavernous carotid artery, without a cross-sectional luminal stenosis. There is calcified plaque formation of the left cavernous carotid artery, without a cross-sectional luminal stenosis. Normal right A1 segments of the anterior cerebral artery. Normal left A1 segments of the anterior cerebral artery. Normal intact anterior communicating artery (ACOM). Normal bilateral A2 segments of the anterior cerebral arteries. Normal right M1 and M2 segments of the middle cerebral arteries, with a normal M1 bifurcation. Normal left M1 and M2 segments of the middle cerebral arteries, with a normal M1 bifurcation. There is non-visualization of the right posterior communicating artery (PCOM). There is non-visualization of the left posterior communicating artery (PCOM). Normal bilateral vertebral arteries. Normal basilar artery with a normal basilar bifurcation. The visualized bilateral superior cerebellar (SCA) arteries are normal. Normal bilateral P1, P2 and visualized P3 segments of the posterior cerebral arteries. There is no demonstrated aneurysm of the [place]. There is no demonstrated abnormality of the visualized brain. IMPRESSION: There is calcified plaque formation of the right cavernous carotid artery, without a cross-sectional luminal stenosis. There is calcified plaque formation of the left cavernous carotid artery, without a cross-sectional luminal stenosis. Electronically Signed: Tian Booth MD at 19:26 EDT , Service support , STUDY: CTA NECK WITH CONTRAST REASON FOR EXAM: Female, 52 years old. TIA/ CVA, weakness. Hypertension RADIATION DOSAGE (If Supplied By Facility): CTDIvol = ( 19.40 ) mGy, DLP = ( 803.87 ) mGycm TECHNIQUE: CT angiography with multi-detector data acquisition was performed from the aortic arch to the skull base following intravenous administration of 100mL ml of Isovue 370 contrast. MIP images were reconstructed from the axial data set. Post-processing of the angiographic images was performed, with multiplanar reformation and 3D reconstruction. Individualized dose optimization techniques were used for this CT. COMPARISON: None. FINDINGS: AORTIC ARCH: Normal visualized aortic arch. Normal origins of the brachiocephalic, left common carotid, and left subclavian arteries. RIGHT CAROTID ARTERIES: Normal right common carotid artery (CCA). Normal right common carotid bulb. Normal origin of the right internal carotid (ICA) artery without a hemodynamically significant stenosis. Normal visualized cervical portion of the right internal carotid artery. Normal origin of the right external carotid artery (ECA). LEFT CAROTID ARTERIES: Normal left common carotid artery (CCA). Normal left common carotid bulb. Normal origin of the left internal carotid (ICA) artery without a hemodynamically significant stenosis. Normal visualized cervical portion of the left internal carotid artery. Normal origin of the left external carotid artery (ECA). VERTEBRAL ARTERIES: Normal bilateral vertebral arteries. CT/CTA Head W/WO Contrast IMPRESSION: Normal bilateral cervical carotid and vertebral arteries. Electronically Signed: Tian Booth MD at 19:26 EDT , Service support , CC: Stephon Wang MD; Danae Tellez MD Business Office Representative: Signed BRAIN WITHOUT Observed: 07/09/2018 Status: F Source: [place] 3:05 PM [facility] REPOSITORY [facility] Imaging Services [place] [address] Brain without Contrast MR#: [id number] Acct: [id number] Name: VALERIE MARTÍNEZ Rep #: [id number] : 1965 F 52 From: Mary Powers MD PCP: Stephon Wang MD Status: ADM IN Study: Brain without Contrast Date of Exam: 07/09/18 Exam# [id number] Ordering Dr: Danae Tellez MD STUDY: MRI BRAIN WITHOUT CONTRAST REASON FOR EXAM: Female, [address] Syncope. Headache. TECHNIQUE: Standardized multiplanar fat and water weighted pulse sequences were obtained. COMPARISON: CT head 07/09/2018. FINDINGS: Normal size of the ventricles and extra-axial spaces for the patient's age. Normal white matter tracts of the supratentorial brain. There is no extra-axial fluid accumulation. Normal flow voids within the major intracranial circulation suggesting patency by spin echo criteria. Signal abnormality is noted in the right temporal lobe lateral to the right thalamic nucleus with signal hypointensity on T1 and hyperintensity on T2-weighted imaging. This is associated with mild surrounding T2 signal hyperintensity on FLAIR imaging. This finding is most consistent with a remote lacunar infarct, less likely dilated perivascular space. This corresponds to the CT finding. There is no evidence of acute ischemia. Normal sella turcica, pituitary gland, infundibular stalk, optic chiasm and hypothalamus. Normal tectal plate and pineal gland. Normal midbrain, ashley and medulla. Normal cerebellum. Normal basal cisterns. Normal bilateral temporal bones. Normal bilateral internal auditory canals. No demonstrated orbital abnormality, within the constraints of a routine brain study. Normal visualized paranasal sinuses. Normal calvarium and skull base. Normal visualized soft tissue structures. Normal visualized upper cervical spine. MRI/Brain without Contrast IMPRESSION: Signal abnormality in the right temporal lobe corresponding to the CT finding is most consistent with a remote lacunar infarct. Electronically Signed: Mary Powers MD at 20:58 EDT Tel , Service support , CC: Stephon Wang MD; Danae Tellez MD Business Office Representative: Signed CBC W/DIFF, AUTOMATED Collected: 07/09/2018 Status: F Source: [place] 12:30 PM [facility] REPOSITORY TYPE CODE TESTS RESULT OUT OF RANGE REFERENCE UNITS LAB L100.1000 4.4-11.0 K/mm3 Normal WBC 6.0 LAB L100.1200 4.2-5.4 M/mm3 Normal RBC 4.70 LAB L100.1300 12.0-15.0 g/dl High HGB 15.8 LAB L100.1400 37-47 % Normal HCT 46.2 LAB L100.1500 81-99 fL Normal MCV 98.3 LAB L100.1600 27.0-32.0 pg High MCH 33.6 LAB L100.1700 32-36 g/gl Normal MCHC 34.2 LAB L100.1810 11.6-14.6 % Normal RDW CV 12.6 LAB L100.1820 35.1-43.9 fl High RDW SD 44.7 LAB L100.1900 150-450 K/mm3 Normal PLT 167 LAB L100.2000 6.2-12.0 fl Normal MPV 11.3 LAB L100.2100 47-70 % Normal NEUT% 59.9 LAB L100.2200 19-41 % Normal LY% 27.4 LAB L100.2300 0-10 % High MONO% 10.2 LAB L100.2400 0-5 % Normal EO% 0.8 LAB L100.2500 0-1 % High BASO% 1.2 LAB L100.2550 0.0-0.9 % Normal IM GRAN % 0.500 Result Comment: IG% - Immature Granulocytes (promyelocytes, myelocytes and metamyelocytes) > 1% indicates that a LEFT SHIFT is Present. LAB L100.2620 2.0-7.7 X10 3/uL Normal Absolute Neut 3.6 LAB L100.2720 0.83-4.51 X10 3/ul Normal Absolute Lymph 1.64 Performed By: #### L100.0100 #### [facility] [place], [address] PROTHROMBIN TIME W/INR Collected: 07/09/2018 Status: F Source: [place] 12:30 PM [facility] REPOSITORY TYPE CODE TESTS RESULT OUT OF RANGE REFERENCE UNITS LAB L300.4150 11.7-14.9 SECONDS Normal PROTIME 12.7 LAB L300.4200 Normal INR 1.0 Performed By: #### L300.3900, L300.4310 #### [facility] [address] [place], [address] PARTIAL THROMBOPLAST Collected: 07/09/2018 Status: F Source: [place] TIME 12:30 PM [facility] REPOSITORY TYPE CODE TESTS RESULT OUT OF RANGE REFERENCE UNITS LAB L300.4310 24.1-36.2 Seconds Normal PTT 26.7 Performed By: #### L300.3900, L300.4310 #### [facility] [address] [place], [address] BASIC METABOLIC Collected: 07/09/2018 Status: F Source: [place] PROFILE (BMP) 12:30 PM [facility] REPOSITORY TYPE CODE TESTS RESULT OUT OF RANGE REFERENCE UNITS LAB L501.0100 74-106 mg/dL High GLU 122 Result Comment: Fasting Glucose result from 100 to 125 mg/dL suggests IMPAIRED HOMEOSTASIS per A.D.A. criteria. Please note revised GLUCOSE reference range effective 2017. LAB L501.1000 7-18 mg/dL Normal BUN 15 LAB L501.1100 0.55-1.02 mg/dL High CREAT,SERUM 1.24 Result Comment: The validity of the calculated GFR AND GFRAA in patients over 70 years has not been determined. Clinical correlation is essential. LAB L501.1110 >60 mL/min Low EST GFR 48 Result Comment: Non- GFR Calc LAB L501.1115 >60 mL/min Low EST GFR - AA 58 Result Comment: GFR Calc LAB L501.1255 ml/min Normal Estimated CRCL 51.61 LAB L501.1300 10-20 RATIO Normal BUN/CRE 12.1 LAB L501.2200 8.5-10 mg/dL Normal .1 CA 9.0 LAB L501.5300 136-14 mmol/L Normal 5 NA 137 LAB L501.5600 3.5-5. mmol/L Normal 1 K 4.4 LAB L501.5900 98-107 mmol/L Normal CL 106 LAB L501.6100 21.0-3 mmol/L Normal 2.0 CO2 23.0 LAB L501.6200 5-15 Normal GAP 8 Performed By: #### L500.2500, L501.4010 #### [facility] [address] [place], [address] TROPONIN-I Collected: 07/09/2018 Status: F Source: [place] 12:30 PM [facility] REPOSITORY TYPE CODE TESTS RESULT OUT OF RANGE REFERENCE UNITS LAB L501.4010 <0.045 ng/mL Normal < 0.015 TROPONIN-I Result Comment: TROPONIN-I EXPECTED VALUES <0.045 Negative 0.045 - 0.590 Consistent with Cardiac Damage > OR = 0.600 Critical Value Not every elevated troponin is indicative of ND. These values should be used with clinical judgement in examining the patient's clinical picture for diagnosis. To establish a diagnosis of ND versus myocardial injury, there must be a demonstrated rise and/or fall in the troponin values, in addition to ischemic symptoms, EKG changes, new regional wall motion abnormality, and/or angiographical evidence. PLEASE NOTE: REFERENCE RANGES EDITED 18 Performed By: #### L500.2500, L501.4010 #### [facility] [address] [place], [address] BRAIN/HEAD WITHOUT Observed: 07/09/2018 Status: F Source: [facility] 12:30 PM [facility] REPOSITORY [facility] Imaging Services [address] [place] [address] Brain/Head without Contrast MR#: [id number] Acct: [id number] Name: VALERIE MARTÍNEZ Rep #: [id number] : 1965 F 52 From: Primitivo Pérez MD PCP: Stephon Wang MD Status: ADM IN Study: Brain/Head without Contrast Date of Exam: 07/09/18 Exam# [id number] Ordering Dr: Hussain Rhodes MD STUDY: CT BRAIN WITHOUT CONTRAST REASON FOR EXAM: Female, 52 years old. Weakness. Right facial droop. RADIATION DOSAGE (If Supplied By Facility): CTDIvol = ( 44.99 ) mGy, DLP = ( 796.11 ) mGycm TECHNIQUE: Transaxial CT imaging of the brain was performed without administration of intravenous contrast material. Individualized dose optimization techniques were used for this CT. COMPARISON: None. FINDINGS: Normal soft tissue structures. Normal calvarium. Normal size ventricles and extra-axial spaces for the patient's age. There is a 1.2 cm x 0.7 cm focal hypodensity in the posterior medial aspect of the right temporal lobe. This may represent a focal area of ischemia. Correlation with MRI is recommended for further evaluation. Normal basal ganglia and thalami. Normal brainstem. Normal cerebellum. There is no intracranial hemorrhage. There are no findings of an acute ischemic infarction. Normal visualized paranasal sinuses. CT/Brain/Head without Contrast IMPRESSION: Focal area of decreased attenuation in the posteromedial aspect of the right temporal lobe as described. Correlation with MRI is recommended for further evaluation. Electronically Signed: Primitivo Pérez MD at 13:01 EDT Tel [phone], Service support , CC: Hussain Rhodes MD; Stephon Wang MD Business Office Representative: Signed CHEST 1 VIEW Observed: 07/09/2018 Status: F Source: [place] 12:30 PM [facility] REPOSITORY [facility] Imaging Services [address] [place] [address] Chest 1 View MR#: [id number] Acct: [id number] Name: VALERIE MARTÍNEZ Rep #: [id number] : 1965 F 52 From: Primitivo Pérez MD PCP: Stephon Wang MD Status: PRE ER Study: Chest 1 View Date of Exam: 07/09/18 Exam# [id number] Ordering Dr: Hussain Rhodes MD STUDY: X-RAY CHEST REASON FOR EXAM: Female, 52 years old. Weakness. Left facial droop. TECHNIQUE: Single AP portable view of the chest. COMPARISON: Comparison is made with prior study dated October 22, 2013. FINDINGS: EKG electrodes are seen. Stable blunting of the right costophrenic angle with minimal right basilar atelectasis. This is unchanged. There is no demonstrated pleural abnormality. Normal size heart. Normal mediastinum and yandel. Normal visualized pulmonary arteries. There is atherosclerotic tortuosity of the aortic arch and descending thoracic aorta. Normal visualized thoracic spine. Normal visualized ribs, clavicles, and shoulders. There is no demonstrated abnormality of the visualized soft tissue structures of the upper abdomen. RAD/Chest 1 View IMPRESSION: Stable pleural parenchymal changes at the right lung base. Electronically Signed: Primitivo Pérez MD at 13:02 EDT Tel [phone], Service support , CC: Hussain Rhodes MD; Stephon Wang MD Business Office Representative: Signed LIPID PROFILE Collected: 07/09/2018 Status: F Source: [place] 12:30 PM [facility] REPOSITORY TYPE CODE TESTS RESULT OUT OF RANGE REFERENCE UNITS LAB L501.4900 200 mg/dL High CHOL 249 Result Comment: <200 mg/dL Desirable 200-240 mg/dL Borderline >240 mg/dL High Risk LAB L501.5000 mg/dL High TRIG 265 Result Comment: The drugs N-Acetylcysteine and Metamizole may falsely depress this assay. Serum Triglycerides Reference Interval Normal <150 mg/dL Borderline high 150 - 199 mg/dL High 200 - 499 mg/dL Very High > or = 500 mg/dL LAB L501.6400 mg/dL Normal HDL 44 Result Comment: The drugs N-Acetylcysteine and Metamizole may falsely depress this assay. Reference Range HDL <40 mg/dL Low HDL Cholesterol HDL >or= 60 mg/dL High HDL Cholesterol LAB L501.6500 0-130 mg/dL High LDL 152 LAB L501.6600 5-40 mg/dL High VLDL 53 Performed By: #### L500.4100 #### [facility] [address] [place], [address] HEMOGLOBIN A1C Collected: 07/09/2018 Status: F Source: [place] 12:30 PM [facility] REPOSITORY TYPE CODE TESTS RESULT OUT OF RANGE REFERENCE UNITS LAB L501.9985 4.2-6.3 % Normal HGB A1C 6.0 Performed By: #### L501.9985 #### [facility] [address] [place], [address] CBC W/DIFF, AUTOMATED Collected: 05/06/2018 Status: F Source: [place] 7:42 AM [facility] REPOSITORY TYPE CODE TESTS RESULT OUT OF RANGE REFERENCE UNITS LAB L100.1000 4.4-11.0 K/mm3 Normal WBC 7.3 LAB L100.1200 4.2-5.4 M/mm3 Normal RBC 4.61 LAB L100.1300 12.0-15.0 g/dl High HGB 15.2 LAB L100.1400 37-47 % Normal HCT 45.4 LAB L100.1500 81-99 fL Normal MCV 98.5 LAB L100.1600 27.0-32.0 pg High MCH 33.0 LAB L100.1700 32-36 g/gl Normal MCHC 33.5 LAB L100.1810 11.6-14.6 % Normal RDW CV 13.6 LAB L100.1820 35.1-43.9 fl High RDW SD 48.0 LAB L100.1900 150-450 K/mm3 Normal PLT 185 LAB L100.2000 6.2-12.0 fl Normal MPV 11.7 LAB L100.2100 47-70 % Normal NEUT% 50.7 LAB L100.2200 19-41 % Normal LY% 35.8 LAB L100.2300 0-10 % High MONO% 10.5 LAB L100.2400 0-5 % Normal EO% 1.9 LAB L100.2500 0-1 % Normal BASO% 0.7 LAB L100.2550 0.0-0.9 % Normal IM GRAN % 0.400 Result Comment: IG% - Immature Granulocytes (promyelocytes, myelocytes and metamyelocytes) > 1% indicates that a LEFT SHIFT is Present. LAB L100.2620 2.0-7.7 X10 3/uL Normal Absolute Neut 3.7 LAB L100.2720 0.83-4.51 X10 3/ul Normal Absolute Lymph 2.62 Performed By: #### L100.0100 #### [facility] [address] [place], [address] COMPREHENSIVE METABOLIC Collected: 05/06/2018 Status: F Source: [facility] 7:42 AM [facility] REPOSITORY TYPE CODE TESTS RESULT OUT OF RANGE REFERENCE UNITS LAB L501.0100 74-106 mg/dL High GLU 147 Result Comment: Fasting Glucose result greater than or equal to 126 mg/dL suggests DIABETES MELLITUS per A.D.A. criteria. Please note revised GLUCOSE reference range effective 2017. LAB L501.1000 7-18 mg/dL Normal BUN 18 LAB L501.1100 0.55-1.02 mg/dL High CREAT,SERUM 1.33 Result Comment: The validity of the calculated GFR AND GFRAA in patients over 70 years has not been determined. Clinical correlation is essential. LAB L501.1110 >60 mL/min Low EST GFR 44 Result Comment: Non- GFR Calc LAB L501.1115 >60 mL/min Low EST GFR - AA 54 Result Comment: GFR Calc LAB L501.1300 10-20 RATIO Normal BUN/CRE 13.5 LAB L501.1500 6.4-8.2 g/dL T Normal PROT 7.5 LAB L501.1800 3.2-5.0 g/dL Normal ALB 3.8 LAB L501.1950 2.2-4.2 g/dL Normal GLOB 3.7 LAB L501.2000 0.9-2.4 RATIO Normal A/G 1.0 LAB L501.2200 8.5-10.1 mg/dL CA Normal 9.6 LAB L501.4100 15-37 U/L High AST 65 Result Comment: Moderate Hemolysis, Result may be falsely increased. LAB L501.4305 45-117 U/L Normal ALK P 65 LAB L501.4405 13-56 U/L High ALT 81 LAB L501.4600 0.20-1.00 mg/dL Normal T BILI 0.80 LAB L501.5300 136-145 mmol/L Normal NA 139 LAB L501.5600 3.5-5.1 mmol/L Normal K 4.2 Result Comment: Moderate Hemolysis, Result may be falsely increased. LAB L501.5900 98-107 mmol/L Normal CL 104 LAB L501.6100 21.0-32.0 mmol/L Normal CO2 26.0 LAB L501.6200 5-15 Normal 9 GAP Performed By: #### L500.4050 #### [facility] [address] [place], [address] NCS AND/OR EMG Observed: 12/04/2017 Status: F Source: [place] PATIENT 10:38 AM [facility] REPOSITORY [facility] Pulmonary Services/Neurology [address] [place] [address] MR#: [id number] Acct: [id number] Name: VALERIE MARTNÍEZ Rep #: [id number] : 1965 52 From: Sergey Pearson MD Referring Dr: Stephon Wang MD Status: REG CLI Ordering Dr: Date: Location: [facility] Sex: F C NCS and/or EMG Patient Report Ordering Doctor: Stephon Wang DATE OF SERVICE: 12/04/17 This is a left upper extremity EMG and nerve conduction study performed on this 52-year-old female who had carpal tunnel surgery and thumb joint replacement surgery 2 years ago. She now has new nonspecific weakness and abnormal sensations in her left upper extremity which does not involve her hand. Symptoms have been present since approximately March 2017. Left upper extremity sensory and motor nerve conduction studies performed demonstrating mild prolongation of the median motor distal latency with preservation of amplitude and conduction velocity. Median sensory response is normal. The ulnar motor and sensory and radial sensory responses are normal. The median and ulnar F waves are normal. Left upper extremity needle electromyography is performed. Muscles evaluated included the first dorsal interosseous, abductor pollicis brevis, brachioradialis, biceps, triceps and deltoid muscles. All muscles demonstrated normal insertional activity with absence of pathologic spontaneous activity. Motor unit potential recruitment pattern and amplitude was normal in all muscles tested. Impression: There is mild prolongation of the median motor distal latency at the wrist consistent with carpal tunnel syndrome however this appears to be asymptomatic and is likely a chronic finding. There is no evidence of radiculopathy and the study is otherwise normal. 12/04/17 1038 <Electronically signed by Sergey Pearson MD> Date Sergey Pearson MD CC: Stephon Wang MD; Sergey Pearson MD Date Dictated: 12/04/17 1017 Date Transcribed: 12/04/17 1017 Business Office Representative: NF Signed ALLERGIES ALLERGIES DATE TYPE / NAME / CODE REACTION SEVERITY SOURCE CODE Drug hydroxychloroquine Angioedema Unknown [place] 9 Allergy/4 sulfate/[id number](RXNO Community [id number]( ) [facility] SNOMED Repository CT) Drug fluorescein/[id number]( Anaphylaxis SV [place] 9 Allergy/4 RXNORM) [facility] [id number]( [facility] SNOMED Repository CT) ENCOUNTERS ENCOUNTERS ADMIT/DISCHARGE ACCOUNT ADMITTING ENCOUNTER LOCATION SOURCE NUMBER CLASS 11/05/2018/ [id number] Ambulatory [place] 9 6 [facility] ing:ENRoom: Repository AC16 10/27/2018 [id number] Ambulatory [place] 3 [facility] ing:OPBI Repository 10/24/2018/ [id number] Ambulatory BMSBuilding:B [place] 9 4 [facility] Repository 10/21/2018/ [id number] Ambulatory BMSBuilding:B [place] 9 5 [facility] Repository 10/20/2018 [id number] Ambulatory [place] 3 [facility] ing:MTLAB Repository 10/02/2018 [id number] Ambulatory [place] 6 [facility] ing:MTLAB Repository 07/09/2018 [id number] Danae Tellez Ambulatory BMSBuilding:B [place] 1 [place]isa MS.[facility] Repository 07/09/2018 [id number] Danae Tellez Ambulatory BMSBuilding:B [place] 3 [place] MS.[facility] Repository 07/09/2018/ [id number] Danae Tellez Ambulatory [place] 8 4 [place] [facility] ing:PCURoom: Repository [id number]: 1 07/09/2018 [id number] Ambulatory BMSBuilding:W [place] 2 [facility] Repository 05/06/2018 [id number] Ambulatory [place] 8 [facility] ing:LAB Repository 12/04/2017 [id number] Ambulatory [place] 7 [facility] ing:PSN Repository PAYERS PAYERS ENCOUNTER GUARANTOR PAYER SUBSCRIBER SOURCE 11/05/2018 VALERIE L Primary VALERIE L [place] [id number] [facility] Number: [id number] [id number] Repository [address]Fgp: (330) Date:4462-71-42GA [phone] () [address] [address]TO: 11/05/2018 Secondary NOT GIVENUNK [place] Insurance:SELF PAY [facility] Number: Effective Repository Date:2018-10-24 10/27/2018 VALERIE L Primary VALERIE L [place] [id number] [facility] Number: [id number] City, [place] [id number] Repository [address]Lhg: (330) Date:8505-50-71ZE [phone] () [address] [address]KP: 10/27/2018 Secondary NOT GIVENUNK [place] Insurance:SELF PAY [facility] Number: Effective Repository Date:2018-10-13 10/24/2018 VALERIE L Primary VALERIE L [place] [id number] [facility] Number: [id number] [place], [place] [id number] Repository [address]Gfo: (330) Date:1148-06-71JX [phone] () [address] [address]UN: 10/24/2018 Secondary NOT GIVENUNK [place] Insurance:SELF PAY [facility] Number: Effective Repository Date:2018-10-23 10/21/2018 VALERIE Akers Primary VALERIE Alejandra [id number] Insurance:AULTCAREPol MARTINDOB: [facility] JESSE icy Number: [id number] City, [place] [id number] Repository [address]Lhl: (330) Date:2595-27-65NJ [phone] () [address] [address]SH: 10/21/2018 Secondary NOT GIVENUNK [place] Insurance:SELF PAY [facility] Number: Effective Repository Date:2018-10-21 10/20/2018 VALERIE L Primary VALERIE Alejandra [id number] Insurance:AULTCAREPol MARTINDOB[facility] Number: [id number] [place], [place] [id number] Repository [address]Ygt: (330) Date:7175-08-64EN [phone] () [address] [address]BF: 10/20/2018 Secondary NOT GIVENUNK [place] Insurance:SELF PAY [facility] Number: Effective Repository Date:2018-10-20 10/02/2018 VALERIE Akers Primary VALERIE Alejandra [id number] Insurance:AULTCAREPol MARTINDOB: [facility] ic Number: [id number] City, [place] [id number] Repository [address]Wcg: (330) Date:7839-29-71WS [phone] () [address] [address]JE: 10/02/2018 Secondary NOT GIVENUNK [place] Insurance:SELF PAY [facility] Number: Effective Repository Date:2018-10-02 07/09/2018 VALERIE L Primary VALERIE Alejandra [id number] Insurance:AULTCAREPol MARTINDOB: [facility] Number: [id number] City, [place] [id number] Repository [address]Vhm: (330) Date:4880-34-75XW [phone] () [address] [address]VQ: 07/09/2018 Secondary NOT GIVENUNK [place] Insurance:SELF PAY [facility] Number: Effective Repository Date:2018-07-09 07/09/2018 VALERIE L Primary VALERIE L [place] [id number] Insurance:[facility]: [facility] icy Number: [id number] City, [place] [id number] Repository [address]Fve: (330) Date:4068-74-86MQ [phone] (HP) [address] [address]CK: 07/09/2018 Secondary NOT GIVENUNK Jusytn Insurance:SELF PAY [facility] Number: Effective Repository Date:2018-07-09 07/09/2018 VALERIE L Primary VALERIE L [place] [id number] Insurance:[facility]: [facility] Number: [id number] City, [place] [id number] Repository [address]Hcl: (330) Date:2098-52-28PQ [phone] () [address] [address]UC: 07/09/2018 Secondary NOT GIVENUNK [place] Insurance:SELF PAY [facility] Number: Effective Repository Date:2018-07-09 07/09/2018 VALERIE L Primary VALERIE L [place] [id number] Insurance:[facility]: [facility] ic Number: [id number] [place], [place] [id number] Repository [address]Izs: (330) Date:1205-02-97LG [phone] () [address] [address]PH: 07/09/2018 Secondary NOT GIVENUNK [place] Insurance:SELF PAY [facility] Number: Effective Repository Date:2018-07-09 05/06/2018 Valerie L Primary Valerie L [place] [id number] Insurance:[facility] Number: [id number], [place] [id number] Repository [address]Qku: (330) Date:3871-45-26GT [phone] () [address] [address]YY: 05/06/2018 Secondary NOT GIVENUNK [place] Insurance:SELF PAY [facility] Number: Effective Repository Date:2018-05-06 12/04/2017 Valerie L Primary Valerie Akers [place] [id number] Insurance:AULTCAREPol AdánB: [facility] Jesse [facility] Number: [id number], [place] [id number] Repository [address]Vtm: (330) Date:3931-92-98ZP [phone] () [address] [address]MB: 12/04/2017 Secondary NOT GIVENUNK [place] Insurance:SELF PAY [facility] Number: Effective Repository Date:2017-09-25
== END 2018-11-05 09:38 | disposition home or self-care (01) ==
LOC: EN 07:39 → AC 07:41
PROVIDERS: Family Provider Family Medicine; PCP Family Medicine; Referring Provider Surgery; Visit Provider Surgery
PROC: 0DJ08ZZ Inspection of Upper Intestinal Tract, Via Natural or Artificial Opening Endoscopic (ICD-10-PCS; CPT 43235; principal; 2018-11-05 08:40)
DX: K29.70 Gastritis, unspecified, without bleeding (principal); K21.9 Gastro-esophageal reflux disease without esophagitis; Z87.19 Personal history of other diseases of the digestive system; M06.9 Rheumatoid arthritis, unspecified; I47.1 Supraventricular tachycardia; I10 Essential (primary) hypertension; E03.9 Hypothyroidism, unspecified; F17.200 Nicotine dependence, unspecified, uncomplicated; E66.9 Obesity, unspecified; Z68.41 Body mass index [BMI] 40.0-44.9, adult; Z86.73 Personal history of transient ischemic attack (TIA), and cerebral infarction without residual deficits; Z79.899 Other long term (current) drug therapy
CPT/HCPCS: 43239; 82962; 88305; 88342; J7120

== ENCOUNTER → 2019-01-01 07:29 | Outpatient (CLI) | payer OTHER, SELFPAY ==
--- NOTE | 2019-01-01 07:31 | BI_ITS ---
MAMMOGRAPHY - BILATERAL SCREENING 3-D ROCHELLE SYNTHESIS REASON FOR EXAM: Female, 53 years old. Bilateral Screening 3-D tomosynthesis PERTINENT HISTORY: Family history of breast cancer in mother at age 60. History of left excisional biopsy in 1999. TECHNIQUE: 2-D mammograms and 3-D Rochelle synthesis of the breast (s) were performed. CAD was performed. COMPARISON: June 06, 2015 FINDINGS: The breast composition is heterogeneously dense that can obscure small breast masses. Scattered benign calcifications are stable. There are stable normal-appearing lymph nodes in both axillae. No dense spiculated masses or suspicious microcalcifications are identified. No architectural distortion is identified. There is no skin thickening or retraction. There has been no significant change since the prior study. BI/SCREENING MAMM (CAD), BILAT IMPRESSION: No mammographic signs of malignancy. Routine yearly mammograms recommended. ASSESSMENT CATEGORY: BIRADS Category 2: Benign. A letter regarding these results will be sent to the patient by the facility within 30 days. FOLLOW UP RECOMMENDATION: Yearly follow up mammogram recommended. (A) Approximately 10% of breast cancers are not detected by mammography. A normal mammogram should not delay biopsy of a clinically suspicious abnormality. Electronically Signed: Rivas Burton MD at 16:37 EDT , Service support ,
== END ==
PROVIDERS: Family Provider Family Medicine; PCP Family Medicine; Referring Provider Family Medicine; Visit Provider Family Medicine
DX: Z12.31 Encounter for screening mammogram for malignant neoplasm of breast (principal); Z80.3 Family history of malignant neoplasm of breast
CPT/HCPCS: 77063; 77067

== ENCOUNTER → 2019-01-26 16:14 | Outpatient (CLI) | payer OTHER, SELFPAY ==
[2019-01-26 18:37] LABS: ALB/GLOB Ratio 1.1 RATIO (0.9-2.4); AST(SGOT) 33 U/L (15-37); Alanine Aminotransfer ALT/SGPT 55 U/L (13-56); Albumin, Serum 4.1 g/dL (3.2-5.0); Alkaline Phosphatase 77 U/L (45-117); Anion Gap 6 (5-15); BUN 14 mg/dL (7-18); BUN/Creat Ratio 14.2 RATIO (10-20); Calcium,Total 9.4 mg/dL (8.5-10.1); Chloride 103 mmol/L (98-107); Cholesterol 166 mg/dL (200); Creatinine, Serum 0.98 mg/dL (0.55-1.02); EST Glomerular Filtration Rate 63 mL/min (>60); Est Glom Filt Rate - Afr Amer 76 mL/min (>60); Globulin 3.9 g/dL (2.2-4.2); Glucose 107 mg/dL (74-106); High Density Lipoprotein 52 mg/dL; Sodium Level 136 mmol/L (136-145); Thyroid Stim Hormone (TSH) 0.64 uIU/mL (0.358-3.74); Triglycerides 172 mg/dL; Very Low Density Lipoprotein 34 mg/dL (5-40)
== END ==
PROVIDERS: Family Provider Family Medicine; PCP Family Medicine; Referring Provider Family Medicine; Visit Provider Family Medicine
DX: I10 Essential (primary) hypertension (principal); E78.00 Pure hypercholesterolemia, unspecified
CPT/HCPCS: 36415; 80053; 80061; 84443

== ENCOUNTER → 2019-04-08 08:28 | Outpatient (CLI) | payer OTHER, SELFPAY ==
[2019-04-08 10:19] LABS: Absolute Lymphocyte Count 2.27 X10^3/ul (0.83-4.51); Absolute Neutrophil Count 2.5 X10^3/uL (2.0-7.7); Basophil# 0.04 X10^3/uL; Basophil% 0.7 % (0-1); Eosinophil# 0.17 X10^3/uL; Eosinophils% 3.1 % (0-5); Hematocrit 43.9 % (37-47); Hemoglobin 14.6 g/dl (12.0-15.0); Lymphocyte # 2.27 X10^3/ul (4.0); Mean Corp Hgb Conc 33.3 g/gl (32-36); Mean Corpuscular Volume 99.3 fL (81-99); Mean Platelet Vol. 11.2 fl (6.2-12.0); Monocyte# 0.42 X10^3/uL; Monocyte% 7.8 % (0-10); Neutrophil # 2.48 X10^3/uL (2.7-7.7); Platelet Count 193 K/mm3 (150-450); RBC Distribution Width SD 47.2 fl (35.1-43.9); Red Blood Count 4.42 M/mm3 (4.2-5.4); White Blood Count 5.4 K/mm3 (4.4-11.0)
[2019-04-08 10:22] LABS: POSITIVE COUNT NO; POSITIVE DIFFERENTIAL NO; POSITIVE MORPHOLOGY NO
[2019-04-08 10:32] LABS: Vitamin B12 349 pg/mL (211-911)
[2019-04-08 10:59] LABS: ALB/GLOB Ratio 1.1 RATIO (0.9-2.4); AST(SGOT) 75 U/L (15-37); Alanine Aminotransfer ALT/SGPT 102 U/L (13-56); Albumin, Serum 3.9 g/dL (3.2-5.0); Alkaline Phosphatase 75 U/L (45-117); Anion Gap 13 (5-15); BUN 14 mg/dL (7-18); BUN/Creat Ratio 14.7 RATIO (10-20); Calcium,Total 8.7 mg/dL (8.5-10.1); Chloride 106 mmol/L (98-107); Creatinine, Serum 0.96 mg/dL (0.55-1.02); EST Glomerular Filtration Rate 65 mL/min (>60); Est Glom Filt Rate - Afr Amer 79 mL/min (>60); Globulin 3.6 g/dL (2.2-4.2); Glucose 119 mg/dL (74-106); Protein, Total 7.5 g/dL (6.4-8.2); Sodium Level 142 mmol/L (136-145); Thyroid Stim Hormone (TSH) 1.33 uIU/mL (0.358-3.74)
[2019-04-10 01:18] LABS: Rapid Plasmin Reagin (RPR) NONREACTIVE (NONREACTIVE)
[2019-04-10 11:31] LABS: ANTINUCLEAR ANTIBODIES DIRECT Positive (Negative)
[2019-04-12 13:59] LABS: Vitamin B1, Thiamine 109.5 nmol/L (66.5-200.0)
[2019-04-13 18:45] LABS: Anti-Centromere B Ab <0.2 AI (0.0-0.9); Anti-Chromatin 0.2 AI (0.0-0.9); Anti-Jo <0.2 AI (0.0-0.9); Anti-Scleroderma-70 AB <0.2 AI (0.0-0.9); RNP Ab 2.6 AI (0.0-0.9); SJOGREN'S Anti-SS-A test < 0.2 AI (0.0-0.9); SJOGREN'S Anti-SS-B test < 0.2 AI (0.0-0.9); Smith Ab <0.2 AI (0.0-0.9)
[2019-04-14 17:06] LABS: Anti-dsDNA Ab <1 IU/mL (0-9)
== END ==
PROVIDERS: Family Provider Family Medicine; PCP Family Medicine; Referring Provider Family Medicine; Visit Provider Family Medicine
DX: R73.9 Hyperglycemia, unspecified (principal); R41.3 Other amnesia
CPT/HCPCS: 36415; 80053; 82607; 82746; 84425; 84443; 85025; 86038; 86225; 86235; 86592

== ENCOUNTER → 2019-04-13 15:38 | Outpatient (CLI) | payer OTHER, SELFPAY | PROVIDERS: Family Provider Family Medicine; PCP Family Medicine; Referring Provider Family Medicine; Visit Provider Family Medicine | DX: R76.8 Other specified abnormal immunological findings in serum (principal) ==

== ENCOUNTER → 2019-04-17 09:15 | Outpatient (CLI) | payer OTHER, SELFPAY ==
--- NOTE | 2019-04-17 15:01 | EEG ---
- Electroencephalogram Date of service 04/17/2019 History EEG is being done in this 53 yr F to rule out seizures EEG Description: This is an 18 channel EEG with 10-20 lead placement system. Bipolar montages, and Referential montages were reviewed. Photic stimulation and Hyperventilation were performed. The posterior dominant rhythm is 11 HZ synchronous, symmetric, reacting to eye opening and closing. Photo stimulation elicited normal driving response but no abnormal photoparoxysmal response, Hyperventilation did not elicit any abnormal photoparoxysmal response. Sleep was identified. There is no abnormal background slowing noted. There was no epileptiform discharges or electrographic seizures noted during this recording. EEG Interpretation This is a normal awake and asleep EEG. There is no epileptiform discharges or electrographic seizures noted during the record.
== END ==
PROVIDERS: Family Provider Family Medicine; PCP Family Medicine; Referring Provider Family Medicine; Visit Provider Family Medicine
DX: R41.3 Other amnesia (principal)
CPT/HCPCS: 95819

== ENCOUNTER → 2019-04-22 09:19 | Outpatient (CLI) | payer OTHER, SELFPAY ==
--- NOTE | 2019-04-22 16:29 | MRI_ITS ---
STUDY: MRI BRAIN WITHOUT CONTRAST REASON FOR EXAM: Female, 53 years old. Amnesia and history of stroke TECHNIQUE: Standardized multiplanar fat and water weighted pulse sequences were obtained. COMPARISON: July 09, 2018 FINDINGS: Normal size of the ventricles and extra-axial spaces for the patient's age. Normal white matter tracts of the supratentorial brain. Small old lacunar infarct on the right. Normal bilateral basal ganglia. Normal thalami. There is no extra-axial fluid accumulation. Normal flow voids within the major intracranial circulation suggesting patency by spin echo criteria. Normal sella turcica, pituitary gland, infundibular stalk, optic chiasm and hypothalamus. Normal tectal plate and pineal gland. Normal midbrain, ashley and medulla. Normal cerebellum. Normal basal cisterns. Normal bilateral temporal bones. Normal bilateral internal auditory canals. No demonstrated orbital abnormality, within the constraints of a routine brain study. Normal visualized paranasal sinuses. Normal calvarium and skull base. Normal visualized soft tissue structures. Normal visualized upper cervical spine. No change since prior study MRI/Brain without Contrast IMPRESSION: Old right lacunar infarct. No evidence for obstructive hydrocephalus mass or acute infarct at this time Electronically Signed: Dragan Morrison MD at 17:34 EDT , Service support ,
== END ==
PROVIDERS: Family Provider Family Medicine; PCP Family Medicine; Referring Provider Nurse Practitioner Family; Visit Provider Nurse Practitioner Family
DX: M06.00 Rheumatoid arthritis without rheumatoid factor, unspecified site (principal); K76.0 Fatty (change of) liver, not elsewhere classified; M18.11 Unilateral primary osteoarthritis of first carpometacarpal joint, right hand; M47.897 Other spondylosis, lumbosacral region; R41.3 Other amnesia; Z79.899 Other long term (current) drug therapy; Z86.73 Personal history of transient ischemic attack (TIA), and cerebral infarction without residual deficits
CPT/HCPCS: 36415; 70551

== ENCOUNTER → 2019-05-19 14:20 | Outpatient (CLI) | payer OTHER, SELFPAY ==
[2019-05-19 16:21] LABS: Color, Urine Straw (Yellow); Glucose, Dipstick Normal (Normal); Ketone-Dipstick Negative (Negative); Leukocyte Esterase-Dipstick Negative /ul (Negative); Nitrite-Dipstick Negative (Negative); Occult Blood-Urine Negative /ul (Negative); Protein-Dipstick Negative (Negative); Urine Bilirubin Dipstick Negative (Negative); Urine Clarity Clear (Clear); Urine Urobilinogen Normal (Normal)
[2019-05-19 16:38] LABS: Creatinine, Urine (random) < 13.00 mg/dL (NO RANGE EST.); Protein, Urine (Random) < 6.0 mg/dL (<11.9)
== END ==
PROVIDERS: Family Provider Family Medicine; PCP Family Medicine; Referring Provider Internal Medicine Rheumatology; Visit Provider Internal Medicine Rheumatology
DX: M06.00 Rheumatoid arthritis without rheumatoid factor, unspecified site (principal); K76.0 Fatty (change of) liver, not elsewhere classified; M18.11 Unilateral primary osteoarthritis of first carpometacarpal joint, right hand; M47.897 Other spondylosis, lumbosacral region; Z79.899 Other long term (current) drug therapy
CPT/HCPCS: 81002; 82570; 84156

== ENCOUNTER 2019-06-25 09:39 | Observation (INO) | payer OTHER, SELFPAY ==
[2019-06-25] VITALS (16 sets, daily range): BP systolic 111–144; BP diastolic 65–95; PULSE 71–98; RESP 16–22; TEMP 36.6–36.9; O2SAT 93–98; BMI 45.3; BMI 42.5
--- NOTE | 2019-06-25 09:43 | RAD_ITS ---
STUDY: X-RAY CHEST REASON FOR EXAM: Female, 53 years old. Strokelike symptoms. TECHNIQUE: AP upright portable view. COMPARISON: 07/09/2018. FINDINGS: Mild pulmonary hypoinflation. The lungs are clear. There is no demonstrated pleural abnormality. Normal size heart. Normal mediastinum and yandel. Normal visualized pulmonary arteries. Normal visualized aortic arch and descending thoracic aorta. Normal visualized thoracic spine. Normal visualized ribs, clavicles, and shoulders. There is no demonstrated abnormality of the visualized soft tissue structures of the upper abdomen. RAD/Chest 1 View IMPRESSION: 1. No acute cardiopulmonary pathology. 2. No significant interval change when compared to 07/09/2018. Electronically Signed: Yobani Isidro MD at 10:23 EDT , Service support ,
--- NOTE | 2019-06-25 09:43 | CT_ITS ---
STUDY: CT BRAIN WITHOUT CONTRAST REASON FOR EXAM: Female, 53 years old. Stroke. Slurred speech. Facial numbness. Blurred vision. RADIATION DOSAGE (If Supplied By Facility): CTDIvol = ( 44.99 ) mGy, DLP = ( 812.98 ) mGycm TECHNIQUE: Transaxial CT imaging of the brain was performed without administration of intravenous contrast material. Individualized dose optimization techniques were used for this CT. COMPARISON: 07/09/2018. MRI of the brain without contrast 04/22/2019. FINDINGS: Normal soft tissue structures. Normal calvarium. All the cystic infarct in the right retrolenticular white matter is unchanged. No midline shift and no mass effects. Normal ventricles and cisterns. Normal white matter tracts of the cerebral hemispheres. Normal basal ganglia and thalami. Normal brainstem. Normal cerebellum. There is no intracranial hemorrhage. There are no findings of an acute ischemic infarction. Normal visualized paranasal sinuses. CT/Brain/Head without Contrast IMPRESSION: 1. No CT evidence of intracranial bleeding, acute ischemic infarct or acute intracranial abnormality at this time. 2. Old cystic infarct in the right retrolenticular white matter is unchanged. 3. Total ASPECTS SCORE: 10/10 4. No significant interval change when compared to 07/09/2018 and MRI of the brain without contrast 04/22/2019. N.B. : The above information has been verbally conveyed by Yobani Isidro MD to Carlo Spain MD, on 06/25/2019 09:59:06 (ET). Electronically Signed: Yobani Isidro MD at 10:01 EDT , Service support ,
--- NOTE | 2019-06-25 09:43 | EKG12_ITS ---
Test Reason : STROKE TEAM Blood Pressure : / mmHG Vent. Rate : 079 BPM Atrial Rate : 079 BPM P-R Int : 176 ms QRS Dur : 096 ms QT Int : 382 ms P-R-T Axes : 034 038 015 degrees QTc Int : 438 ms Normal sinus rhythm Nonspecific T wave abnormality Abnormal ECG Confirmed by CARMELO LIMON, CHRISTIANO ([id number]), medical editor KEVAN JACOBS ([id number]) on 06/29/2019 3:36:27 PM Referred By: Radhames Kuhn Confirmed By:TASHIA RHODES MD
--- NOTE | 2019-06-25 09:44 | CT_ITS ---
STUDY: CTA HEAD AND NECK WITH CONTRAST REASON FOR EXAM: Female, 53 years old. Stroke. RADIATION DOSAGE (If Supplied By Facility): CTDIvol = ( 22.85 ) mGy, DLP = ( 910.31 ) mGycm TECHNIQUE: CT angiography was performed with a multi-detector CT scanner. Data acquisition was obtained from the skull base through the vertex following intravenous administration of 100 IV Isovue 370. MIP images were reconstructed from the axial data set. Post-processing of the angiographic images was performed, with multiplanar reformation and 3D reconstruction. Individualized dose optimization techniques were used for this CT. COMPARISON: CTA head and neck 07/09/2018. FINDINGS: Normal bilateral petrous carotid arteries. Minimal nonocclusive calcified plaques in the C4 and C3 cavernous segments of the right internal carotid artery with a normal supraclinoid bifurcation. Normal left cavernous carotid artery with a normal supraclinoid bifurcation. Normal right A1 segment of the anterior cerebral artery. Normal left A1 segment of the anterior cerebral artery. Normal intact anterior communicating artery (ACOM). Normal bilateral A2 segments of the anterior cerebral arteries. Normal right M1 and M2 segments of the middle cerebral arteries, with a normal M1 bifurcation. Normal left M1 and M2 segments of the middle cerebral arteries, with a normal M1 bifurcation. No visible right posterior communicating artery (PCOM). No visible left posterior communicating artery (PCOM). Normal bilateral vertebral arteries. They are codominant. Normal basilar artery with a normal basilar bifurcation. The visualized bilateral superior cerebellar (SCA) arteries are normal. Normal bilateral P1, P2 and visualized P3 segments of the posterior cerebral arteries. There is no demonstrated aneurysm of the [place]. There is no demonstrated abnormality of the visualized brain. AORTIC ARCH: Normal visualized aortic arch. Normal origins of the brachiocephalic, left common carotid, and left subclavian arteries. RIGHT CAROTID ARTERIES: Normal right common carotid artery (CCA). Normal right internal carotid bulb. Normal origin of the right internal carotid (ICA) artery without a hemodynamically significant stenosis. Normal visualized cervical portion of the right internal carotid artery. Normal origin of the right external carotid artery (ECA). LEFT CAROTID ARTERIES: Normal left common carotid artery (CCA). Normal left internal carotid bulb. Normal origin of the left internal carotid (ICA) artery without a hemodynamically significant stenosis. Normal visualized cervical portion of the left internal carotid artery. Normal origin of the left external carotid artery (ECA). VERTEBRAL ARTERIES: Normal bilateral vertebral arteries. They are codominant. CT/CTA Head AND Neck W/ Contrast IMPRESSION: 1. No CTA evidence of any significant vaso-occlusive disease of the anterior and posterior intracranial circulation. 2. Minimal nonocclusive calcified plaques in the C4 and C3 cavernous segments of the right internal carotid artery are unchanged. 3. Widely patent bilateral common carotid arteries, bilateral common carotid bifurcations, bilateral internal and external carotid arteries and the bilateral codominant vertebral arteries. 4. Widely patent aortic arch and origins of the great vessels. 5. No significant interval change when compared to 07/09/2018. Electronically Signed: Yobani Isidro MD at 10:17 EDT , Service support ,
--- NOTE | 2019-06-25 09:53 | ED.VIS.GEN ---
History of Present Illness Chief Complaint: Neuro S/Sx Informant: Patient Onset: Today Narrative: Patient came by private vehicle reports sudden onset of slurred speech starting at 8:30 AM today, little over an hour ago. Denies any headache, facial tingling, or hemiparesis. Reports had a TIA/stroke this past June found on MRI. Reports at that time had altered mental status with tremors, she is currently on aspirin and Plavix. Reports findings was a lacunar infarct. Today's symptoms are different. Patient history of hypertension, diabetes, hypercholesterolemia. Denies any other symptoms. Prior similar symptoms: No Past Medical History - Allergies and Home Meds Allergies/Adverse Reactions: Allergies fluorescein Allergy (Severe, Verified 11/03/18 11:35) Anaphylaxis hydroxychloroquine sulfate [From Plaquenil] Allergy (Verified 11/03/18 11:35) Angioedema Primary Care Physician: Stephon Wang MD [Primary Care Provider] - Surgical History: tonsillectomy, - - back surgery Smoking Status: Former smoker - Family History Maternal Family History: Family History (Last Reviewed 10/24/18 @ 09:04 by Hussain Wild MD) Father Heart disease Myocardial infarction Mother Hypertension Breast cancer Cancer Sister Hypertension Family History: Reports: Heart Disease, Hypertension Paternal Family History: Family History (Last Reviewed 10/24/18 @ 09:04 by Hussain Wild MD) Father Heart disease Myocardial infarction Mother Hypertension Breast cancer Cancer Sister Hypertension Family History: Reports: High Cholesterol, Heart Disease, Hypertension Review of Systems General: Denies: Chills, Fever, Sweats Eyes: Denies: Visual changes - bilaterally, Diplopia ENT: Denies: Rhinorrhea, Sore throat Cardiovascular: Denies: Chest pain, Palpitations Respiratory: Denies: Dyspnea, Cough, Dyspnea on exertion Gastrointestinal: Denies: Abdominal pain, Nausea, Vomiting, Diarrhea, Melena, Hematochezia Genitourinary: Denies: Dysuria, Hematuria, Frequency Musculoskeletal: Denies: Back pain, Extremity Pain Skin: Denies: Rash, Wounds Neurological: Denies: Headache, Weakness, Numbness Physical Exam Inital Vital Signs reviewed: Yes General: Well nourished, Well developed, No Acute Distress Head: Normocephalic, Atraumatic Eyes: Perrl, EOMI ENT: Moist mucous membranes, No rhinorrhea Neck: Supple, Nontender Cardiovascular: Regular rate, Regular rhythm, No murmurs Respiratory: No distress, CTA bilaterally, Chest nontender Abdomen: Soft, Nontender, Nondistended, Normal bowel sounds Back: Nontender, Normal Inspection Extremities: Nontender, No edema Skin: Normal color, No rash Neurological: Alert, Oriented x3, - - NIH equals 6 for right lip droop(2), dysarthria,(2) left leg drift, and right upper extremity ataxia. Psychological: Normal affect, Normal Mood Diagnostic/Tx/Re-eval - Medical Decision Making Stroke team was activated on patient's arrival into the ED and immediately evaluated. She has a NIH of 6, she is sent to CT along with obtaining a CTA to rule out LVO. After returning from CT scan, reevaluate the patient prior to neurology on telemetry stroke, she was having improvement of symptoms, her dysarthria was improving, her right lip slightly improved, her ataxia was improving along with her left leg drift. Her NIH would be a 4. She was evaluated by telemetry stroke neurologist Dr. Aggarwal, with me bedside, discussed with patient feeling off since yesterday and this morning, it was not recognized with her speech and lip droop until she got to work, felt may have started earlier and she is outside the window for TPA, along with rapidly improving symptoms, he did not feel TPA was indicated currently. Currently pending CT angiogram to rule out LVO, she will need to be admitted for further testing and possible further anticoagulants. Clinical Impression(s) from Imaging Studies Brain CT 06/25/19 09:43 IMPRESSION: 1. No CT evidence of intracranial bleeding, acute ischemic infarct or acute intracranial abnormality at this time. 2. Old cystic infarct in the right retrolenticular white matter is unchanged. 3. Total ASPECTS SCORE: 10/10 4. No significant interval change when compared to 07/09/2018 and MRI of the brain without contrast 04/22/2019. N.B. : The above information has been verbally conveyed by Yobani Isidro MD to Carlo Spain MD, on 06/25/2019 09:59:06 (ET). Electronically Signed: Yobani Isidro MD at 10:01 EDT , Service support , Chest X-Ray 06/25/19 09:43 IMPRESSION: 1. No acute cardiopulmonary pathology. 2. No significant interval change when compared to 07/09/2018. Electronically Signed: Yobani Isidro MD at 10:23 EDT , Service support , Head/Neck CTA 06/25/19 09:44 IMPRESSION: 1. No CTA evidence of any significant vaso-occlusive disease of the anterior and posterior intracranial circulation. 2. Minimal nonocclusive calcified plaques in the C4 and C3 cavernous segments of the right internal carotid artery are unchanged. 3. Widely patent bilateral common carotid arteries, bilateral common carotid bifurcations, bilateral internal and external carotid arteries and the bilateral codominant vertebral arteries. 4. Widely patent aortic arch and origins of the great vessels. 5. No significant interval change when compared to 07/09/2018. Electronically Signed: Yobani Isidro MD at 10:17 EDT , Service support , Abnormal Lab Results 06/25/19 06/25/19 06/25/19 09:43 09:43 09:43 WBC 8.2 RBC 4.77 Hgb 15.4 H Hct 47.0 MCV 98.5 MCH 32.3 H MCHC 32.8 RDW Std Deviation 45.2 H RDW Coeff of Cherry 12.6 Plt Count 205 MPV 10.8 Immature Gran % (Auto) 0.500 Neut % (Auto) 64.1 Lymph % (Auto) 23.2 Atlantic % (Auto) 9.7 Eos % (Auto) 1.8 Baso % (Auto) 0.7 Absolute Neuts (auto) 5.3 Absolute Lymphs (auto) 1.91 Nucleated RBC % 0 PT 12.9 INR 1.0 APTT 26.6 Sodium 141 Potassium 4.3 Chloride 110 H Carbon Dioxide 24.0 Anion Gap 7 BUN 13 Creatinine 1.01 Estim Creat Clear Calc 55.63 Est GFR (MDRD) Af Amer 74 Est GFR (MDRD) Non-Af 61 BUN/Creatinine Ratio 12.9 Glucose 187 H Calcium 9.0 Troponin I < 0.015 POC Glucose 06/25/19 10:26 WBC RBC Hgb Hct MCV MCH MCHC RDW Std Deviation RDW Coeff of Cherry Plt Count MPV Immature Gran % (Auto) Neut % (Auto) Lymph % (Auto) Atlantic % (Auto) Eos % (Auto) Baso % (Auto) Absolute Neuts (auto) Absolute Lymphs (auto) Nucleated RBC % PT INR APTT Sodium Potassium Chloride Carbon Dioxide Anion Gap BUN Creatinine Estim Creat Clear Calc Est GFR (MDRD) Af Amer Est GFR (MDRD) Non-Af BUN/Creatinine Ratio Glucose Calcium Troponin I POC Glucose [address] CTA results are negative. Labs are stable. Again on reevaluation speech was still improving, she still has a slight right lip droop. Without LVO, will speak with hospitalist for admission here. 1100: CTA negative for any LVO, minimal internal carotid findings. I discussed with hospitalist, Dr. Kuhn for admission to PCU. ED Disposition - Plan for ED Patient: Disposition: Acute Care Hospital [facility] Diagnosis: CVA (cerebral vascular accident) Referrals: Stephon Wang MD [Primary Care Provider] -
[2019-06-25 09:54] LABS: Absolute Lymphocyte Count 1.91 X10^3/uL (0.83-4.51); Absolute Neutrophil Count 5.3 X10^3/uL (2.0-7.7); Basophil# 0.06 X10^3/uL; Basophil% 0.7 % (0-1); Eosinophil# 0.15 X10^3/uL; Eosinophils% 1.8 % (0-5); Hemoglobin 15.4 g/dL (12.0-15.0); Lymphocyte # 1.91 X10^3/ul (4.0); Lymphocyte % 23.2 % (19-41); Mean Corp Hgb Conc 32.8 g/dL (32-36); Mean Corpuscular Hgb 32.3 pg (27.0-32.0); Mean Corpuscular Volume 98.5 fL (81-99); Mean Platelet Vol. 10.8 fl (6.2-12.0); Monocyte% 9.7 % (0-10); NRBC Flagged by Analyzer 0 % (0-5); Neutrophil # 5.27 X10^3/uL (2.7-7.7); Neutrophil % 64.1 % (47-70); Platelet Count 205 K/mm3 (150-450); RBC Distribution Width CV 12.6 % (11.6-14.6); RBC Distribution Width SD 45.2 fl (35.1-43.9); Red Blood Count 4.77 M/mm3 (4.2-5.4); White Blood Count 8.2 K/mm3 (4.4-11.0)
[2019-06-25 10:08] LABS: Prothrombin Time (Protime)PT. 12.9 SECONDS (11.7-14.9)
[2019-06-25 10:09] LABS: Partial Thromboplast Time 26.6 Seconds (24.1-36.2)
[2019-06-25 10:10] LABS: Anion Gap 7 (5-15); BUN 13 mg/dL (7-18); BUN/Creat Ratio 12.9 RATIO (10-20); Chloride 110 mmol/L (98-107); Creatinine, Serum 1.01 mg/dL (0.55-1.02); EST Glomerular Filtration Rate 61 mL/min (>60); Est Glom Filt Rate - Afr Amer 74 mL/min (>60); Estimated Creatinine Clearance 55.63 ml/min; Glucose 187 mg/dL (74-106); Potassium 4.3 mmol/L (3.5-5.1); Sodium Level 141 mmol/L (136-145)
[2019-06-25 10:36] LABS: Bedside Glucose 181 mg/dL (70-110)
--- NOTE | 2019-06-25 11:02 | MRI_ITS ---
STUDY: MRI BRAIN WITHOUT CONTRAST REASON FOR EXAM: Female, 53 years old. Left leg weakness, abnormal speech, dizziness TECHNIQUE: Standardized multiplanar fat and water weighted pulse sequences were obtained. COMPARISON: 04/22/2019 FINDINGS: Normal size of the ventricles and extra-axial spaces for the patient's age. Normal white matter tracts of the supratentorial brain. There is no evidence for recent intracranial ischemia or other cause of cytotoxic edema on diffusion weighted imaging (DWI). Normal T2* images of the brain without demonstrated susceptibility artifact. There is no demonstrated hemosiderin stain. Chronic lacunar infarct of the right putamen which is unchanged. Normal thalami. There is no extra-axial fluid accumulation. Normal flow voids within the major intracranial circulation suggesting patency by spin echo criteria. Normal sella turcica, pituitary gland, infundibular stalk, optic chiasm and hypothalamus. Normal tectal plate and pineal gland. Normal midbrain, ashley and medulla. Normal cerebellum. Normal basal cisterns. Normal bilateral temporal bones. Normal bilateral internal auditory canals. No demonstrated orbital abnormality, within the constraints of a routine brain study. Normal visualized paranasal sinuses. Normal calvarium and skull base. Normal visualized soft tissue structures. Normal visualized upper cervical spine. MRI/Brain without Contrast IMPRESSION: No change from 04/22/2019. No acute infarct. Electronically Signed: Kota Daniel MD at 16:39 EDT Tel , Service support ,
--- NOTE | 2019-06-25 11:03 | ECHOCS_ITS ---
Version 2 Reason For Study: TIA/CVA Procedure This was a 2D Doppler, Color Flow transthoracic echocardiogram. Exam performed portable in patient room. Left Ventricle Normal LV size. The estimated ejection fraction is 65 %. Normal diastology for age. No regional wall motion abnormalities noted. Right Ventricle Normal RV size. Normal systolic function. Atria Normal left atrium. Normal right atrium. No doppler evidence for ASD. Mitral Valve There is no mitral valve stenosis. No mitral valve insufficiency. Tricuspid Valve There is no tricuspid stenosis. Unable to estimate RV systolic pressure due to inadequate jet, pulmonary artery pressure probably normal. Aortic Valve There is no aortic stenosis. No aortic valve insufficiency. Pulmonic Valve There is no pulmonic valvular stenosis. No pulmonic valve insufficiency. Great Vessels Normal aortic root. Pericardium/Pleural No pericardial effusion. Medication Diluted definity 4ml given slow IV push to enhance endocardial definition. MMode/2D Measurements & Calculations LVIDd: 4.7 cm IVSd: 0.80 cm LAV(MOD-bp): 38.2 ml LVIDs: 3.3 cm LVPWd: 0.98 cm FS: 30.9 % LAV(MOD-bp) Indexed: 17.3 ml/m2 LAV(MOD-sp2): 40.4 ml LAV(MOD-sp4): 35.2 ml SV(MOD-sp4): 79.8 ml SV(sp4-el): 82.0 ml LVAd ap4: 36.0 cm2 EDV(MOD-sp4): 128.0 ml EDV(sp4-el): 129.6 ml LVAs ap4: 19.0 cm2 ESV(MOD-sp4): 48.2 ml ESV(sp4-el): 47.6 ml EF(MOD-sp4): 62.3 % EF(sp4-el): 63.3 % LA A4 area: 14.2 cm2 RA A4 area: 11.8 cm2 Time Measurements MV dec time: 0.24 sec Doppler Measurements & Calculations MV E max aiden: 63.0 cm/sec Lat Peak E' Aiden: 10.6 cm/sec Med Peak E' Aiden: 10.8 cm/sec MV A max aiden: 67.8 cm/sec E/E' lat: 6.0 E/E' med: 5.8 MV E/A: 0.93 Ao V2 max: 144.9 cm/sec LV V1 max: 105.2 cm/sec PA V2 max: 109.5 cm/sec Ao max P.4 mmHg LV V1 max P.4 mmHg TR max aiden: 221.9 cm/sec TR max P.7 mmHg Interpretation Summary The estimated ejection fraction is 65 %. Normal diastology for age. The study was technically difficult. Contrast injection was performed. Ordering Physician: Bam^Radhames^^^ Referring Physician: LUIS HASSAN Performed By: Dena Arreaga, HEATHER
--- NOTE | 2019-06-25 11:18 | CASEMGMT ---
RN CM Assessment Introduced role of RN CM to patient and patient two friends at bedside.? Patient is alert, oriented and able?to participate in RN CM Assessment. Gives this narrative writer permission to perform assessment in front of friends at bedside. ?Care providers, pharmacy, and demographics verified. Presentation: Sudden onset of slurred speech, Reports had TIA/Stroke this past June found on MRI Admit Dx: Acute stroke, ischemic Re-Admit: No, OBS 07/09-07/10/18 for Stroke Work up Barriers/Issues: None PCP: Stephon Wang Specialists: Cardio- Dr Mai, Neuro- Dr Pearson, Pulm- Dr Dasilva, Rheum- Dr Rodriguez Preferred Pharmacy: [facility] Insurance: [employer] Benefit: Yes, States has free medications until July? LNOK: Friend Mare Storm LW/HPOA: None, [facility] has the information and declines information or services upon this admission Living Arrangements:?Lives with friend Mare in a two story home, Bedroom on main in ADL?s: Independent with ambulation and ADLs Transportation: Patient drives, friend Mare to transport upon DC DME: Glucometer, CPAP HHC: None SNF: None Goal: Home and return to work. Denies any needs at this time. Denies any issues, concerns, or questions with DC planning at this time. Aware CM remains available for any emerging needs. DC PLAN: Home with no anticipated needs identified at this time. Toan Alatorre RNCM
[2019-06-25] MEDS: 0.9% Normal Saline 1,000 ML 100 ML IV (12:39)
[2019-06-25] MEDS: Clopidogrel Bisulfate 75 MG Tablet PO (12:40)
[2019-06-25] MEDS: Aspirin 81 MG TAB.CHEW PO (12:40)
--- NOTE | 2019-06-25 12:46 | HP.PCM_ITS ---
Problem List (1) CVA (cerebral vascular accident) Status: Acute (2) Tobacco use disorder Status: Chronic (3) Rheumatoid arthritis Status: Chronic (4) Obesity Status: Chronic (5) Hypothyroidism Status: Chronic (6) Benign hypertension Status: Chronic (7) MCTD (mixed connective tissue disease) Status: Chronic History of Present Illness Date of Admission: 06/25/19 Chief Complaint: speech abnormality, left side weakness, strokelike symtoms The patient is a 53 year old F with history of RA and MCTD came to ER with multiple comorbidities came to ED with change in his speech, confusion altered mental status and loss of balance,and gait abnormality. Patient history is not clear as she has disequilibrium as chronic problem. She denies dragging of her leg. The symptoms started yesterday morning more than 24 hours with feeling funny nondescript nonspecific symptoms, confusion and speech abnormality. Patient had tele-neurology consult in ER as NIH stroke scale was found 6 which then improved to 4. CT brain does not show evidence of acute intracranial bleeding or ischemic infarct. Tele-neurology suggested no TPA. CTA does not show evidence of major vessel occlusive disease. EKG normal sinus rhythm at 79 bpm. QTc 438 ms. Chest x-ray no acute cardiopulmonary syndrome. Past Medical History Past Medical History (Chronic Problems): Chronic Problems (Last Reviewed 10/24/18 @ 09:04 by Hussain Wild MD) MCTD (mixed connective tissue disease) (Chronic) Tobacco use disorder (Chronic) Rheumatoid arthritis (Chronic) Obesity (Chronic) Hypothyroidism (Chronic) Benign hypertension (Chronic) Medical History: Medical History (Last Reviewed 10/24/18 @ 09:04 by Hussain Wild MD) TIA (transient ischemic attack) (Acute) G45.9 Tobacco use disorder (Chronic) F17.200 Rheumatoid arthritis (Chronic) M06.9 Obesity (Chronic) E66.9 Hypothyroidism (Chronic) E03.9 Benign hypertension (Chronic) I10 History of esophageal ulcer Z87.19 Allergies fluorescein Allergy (Severe, Verified 11/03/18 11:35) Anaphylaxis hydroxychloroquine sulfate [From Plaquenil] Allergy (Verified 11/03/18 11:35) Angioedema Home Medications: Ambulatory Orders Medication Instructions Recorded Etanercept [Enbrel] 50 mg SQ [place] 06/17/14 Levothyroxine [Synthroid] 75 mcg PO DAILY 09/04/14 metFORMIN HCl [Glucophage] 500 mg PO BIDCM 06/17/14 Bisoprolol Fumarate [Zebeta (Beta 5 mg PO DAILY 07/09/18 Rommel)] Cholecalciferol (Vitamin D3) 2,000 units PO DAILY 07/09/18 [Vitamin D3] Clonidine HCl 0.1 - 0.2 mg PO DAILY 07/09/18 Spironolactone 100 mg PO DAILY 07/09/18 cycloBENZAPRine HCl [Flexeril] 10 mg PO PRN PRN 07/09/18 Aspirin [Aspirin, Baby] 81 mg PO DAILY@0800 #90 tab.chew 07/10/18 Atorvastatin Calcium 40 mg PO DAILY #90 tab 07/10/18 acarbose 50 mg tablet 50 mg PO BID 10/24/18 clopidogrel 75 mg tablet 75 mg PO DAILY 10/24/18 Venlafaxine HCl [Effexor] 75 mg PO DAILY 11/03/18 Surgical History: Surgical History (Last Reviewed 10/24/18 @ 09:04 by Hussain Wild MD) History of breast biopsy Z98.890 History of colonoscopy Onset Date: ~2013 Z History of esophagogastroduodenoscopy (EGD) Onset Date: ~2013 Z History of hernia repair Onset Date: ~2014 Z., Z. History of repair of ACL Z98.890 Status post laparoscopic Divine fundoplication Onset Date: ~2013 Z Surgical History: tonsillectomy, - - back surgery Psychiatric History: No pertinent psych hx [employer] History: No pertinent [employer] history Smoking Status: Current every day smoker - *Family History Maternal Family History: Family History (Last Reviewed 10/24/18 @ 09:04 by Hussain Wild MD) Father Heart disease Myocardial infarction Mother Hypertension Breast cancer Cancer Sister Hypertension History Items: Heart Disease, Hypertension Paternal Family History: Family History (Last Reviewed 10/24/18 @ 09:04 by Hussain Wild MD) Father Heart disease Myocardial infarction Mother Hypertension Breast cancer Cancer Sister Hypertension History Items: High Cholesterol, Heart Disease, Hypertension Review of Systems Constitutional: Denies: Chills, Fever, Weight Change HEENT: Denies: Head Aches, Sinus Congestion, Sinus Drainage Cardiovascular: Denies: Chest Pain, Palpitations Respiratory: Denies: Cough, Shortness of breath at rest, Sputum production Gastrointestinal: Denies: Abdominal Pain, Nausea, Vomiting Genitourinary: Denies: Dysuria Musculoskeletal: Reports: Joint Pain, Joint stiffness - RA, Joint swelling. Denies: Joint Tenderness Skin: Denies: Rash, Wounds Neurological: Reports: Balance problems, Change in Speech, Slurred speech, Confusion, Incoordination. Denies: Blurred vision, Double vision, Focal weakness, Numbness, Tingling Psychiatric: Denies: Anxiety, Depression, Homicidal Ideations, Suicidal Ideations Hematologic/ Lymphatic: Denies: Easy Bruising, Easy Bleeding VTE Information - Inpt Only VTE Present on Admission: No VTE Mechan Device Prophylaxis: SCD's VTE Pharm Prophylaxis ordered?: Yes Patient Problems: Active and Suspected Problems (Last Reviewed 10/24/18 @ 09:04 by Hussain Wild MD) CVA (cerebral vascular accident) (Acute) - Physical Exam General: Alert, Oriented x3, Cooperative HEENT: Atraumatic, PERRLA, EOMI, Normocephalic Neck: Supple, No JVD, Negative Carotid Bruits Lungs: Clear to auscultation, Normal air movement, No rhonchi, No wheeze, No rales Cardiovascular: Regular rate, Regular Rhythm, Normal S1, Normal S2, No murmurs Abdomen: Bowel Sounds Present, Soft, Non Tender, Non-Distended Extremities: No edema, Capillary Refill Less than 3 Seconds Skin: No rashes, No breakdown Musculoskeletal: No Tenderness to Palpation of Joints or Extremities, Arthritic Changes - Arthritic changes at small MCP and PIP joints of hand. Lymphatic: No Cervical, Supraclavicular, or Inguinal Adenopathy Neurological: Cranial nerves II-XII grossly intact, Deep Tendon Reflexes 2+/4 and Symmetrical, - - Mild weakness of the left lower extremity strength 4/5. Heel hill positive of left lower extremity. No aphasia/language abnormality. No slurring. NIH stroke scale 2. Psych/Mental Status: Normal Affect, Appropriate Vital Signs Temp Pulse Resp BP Pulse Ox 97.9 F 73 18 126/65 H 97 06/25/19 11:51 06/25/19 11:57 06/25/19 11:51 06/25/19 11:51 06/25/19 11:51 Oxygen Flow Rate (L/min) 2 Oxygen Delivery Method Room Air Weight: 263 lb 3.711 oz Body Mass Index (BMI) 42.5 Finger Stick Blood Glucose 181 Laboratory Tests Past 24 Hrs 06/25/19 06/25/19 06/25/19 09:42 09:43 09:43 WBC 8.2 RBC 4.77 Hgb 15.4 H Hct 47.0 MCV 98.5 MCH 32.3 H MCHC 32.8 RDW Std Deviation 45.2 H RDW Coeff of Cherry 12.6 Plt Count 205 MPV 10.8 Immature Gran % (Auto) 0.500 Neut % (Auto) 64.1 Lymph % (Auto) 23.2 [place] % (Auto) 9.7 Eos % (Auto) 1.8 Baso % (Auto) 0.7 Absolute Neuts (auto) 5.3 Absolute Lymphs (auto) 1.91 Nucleated RBC % 0 PT 12.9 INR 1.0 APTT 26.6 Sodium Potassium Chloride Carbon Dioxide Anion Gap BUN Creatinine Estim Creat Clear Calc Est GFR (MDRD) Af Amer Est GFR (MDRD) Non-Af BUN/Creatinine Ratio Glucose Calcium Total Bilirubin Direct Bilirubin AST ALT Alkaline Phosphatase Troponin I Total Protein Albumin Ethyl Alcohol Pending 06/25/19 06/25/19 09:43 12:30 WBC RBC Hgb Hct MCV MCH MCHC RDW Std Deviation RDW Coeff of Cherry Plt Count MPV Immature Gran % (Auto) Neut % (Auto) Lymph % (Auto) [place] % (Auto) Eos % (Auto) Baso % (Auto) Absolute Neuts (auto) Absolute Lymphs (auto) Nucleated RBC % PT INR APTT Sodium 141 Potassium 4.3 Chloride 110 H Carbon Dioxide 24.0 Anion Gap 7 BUN 13 Creatinine 1.01 Estim Creat Clear Calc 55.63 Est GFR (MDRD) Af Amer 74 Est GFR (MDRD) Non-Af 61 BUN/Creatinine Ratio 12.9 Glucose 187 H Calcium 9.0 Total Bilirubin Pending Direct Bilirubin Pending AST Pending ALT Pending Alkaline Phosphatase Pending Troponin I < 0.015 Pending Total Protein Pending Albumin Pending Ethyl Alcohol POC Glucose 06/25/19 10:26 POC Glucose 181 H Assessment/Plan All Active Problems (Last Reviewed 10/24/18 @ 09:04 by Hussain Wild MD) CVA (cerebral vascular accident) (Acute) The patient is a 53 year old F with history of RA and MCTD came to ER with multiple comorbidities came to ED with change in his speech, confusion altered mental status and loss of balance,and gait abnormality. Patient history is not clear as she has disequilibrium as chronic problem. She denies dragging of her leg. The symptoms started yesterday morning more than 24 hours with feeling funny nondescript nonspecific symptoms, confusion and speech abnormality. Patient had tele-neurology consult in ER as NIH stroke scale was found 6 which then improved to 4. CT brain does not show evidence of acute intracranial bleeding or ischemic infarct. Tele-neurology suggested no TPA. CTA does not show evidence of major vessel occlusive disease. EKG normal sinus rhythm at 79 bpm. QTc 438 ms. Chest x-ray no acute cardiopulmonary syndrome. 1. Strokelike symptoms but may be metabolic encephalopathy in view of confusion: Patient glucose control is not optimal and runs high. It was 187 in BMP. Patient seen by neurologist. MRI brain, 2D echo, PT, OT and Occupational Therapy ordered. Blood pressure is 126/65. Patient is on aplha 2 agonist clonidine and bisoprolol beta-2 antagonist; aspirin and Plavix at home which does not make much sense in the absence of coronary artery disease and stent. Currently patient does not need antihypertensive medication in first 24 hours. Fasting for tomorrow a.m. 2. Diabetes mellitus type 2 [id number] before meals and at bedtime and cover with Humalog sliding scale. A1c tomorrow a.m. Blood pressure controlled. As mentioned above will hold clonidine. 3. Hypothyroidism-patient is on levothyroxine home dose continued 4. Elevated transaminases in view of morbid obesity with BMI of 42.5. LFTs ALT of 126, ALT 158; most likely metabolic disease, nonalcoholic steatohepatitis. Lifestyle modification including weight loss advised 5. anxiety and depression: Patient is on Effexor at home. Effexor continued 6. GERD with history of Divine's fundoplication. Not on PPI at home. 7. Rheumatoid arthritis patient is stable on etanercept which is being held during hospital stay. 8. Tobacco dependence counseled on cessation, offered nicotine patch for tobacco cravings 9. DVT prophylaxis bilateral SCDs. Lovenox 40 mg subcut daily after MRI rules out stroke. Clinical Impression(s) from Imaging Studies Brain CT 06/25/19 09:43 IMPRESSION: 1. No CT evidence of intracranial bleeding, acute ischemic infarct or acute intracranial abnormality at this time. 2. Old cystic infarct in the right retrolenticular white matter is unchanged. 3. Total ASPECTS SCORE: 10/10 4. No significant interval change when compared to 07/09/2018 and MRI of the brain without contrast 04/22/2019. Chest X-Ray 06/25/19 09:43 IMPRESSION: 1. No acute cardiopulmonary pathology. 2. No significant interval change when compared to 07/09/2018. Head/Neck CTA 06/25/19 09:44 IMPRESSION: 1. No CTA evidence of any significant vaso-occlusive disease of the anterior and posterior intracranial circulation. 2. Minimal nonocclusive calcified plaques in the C4 and C3 cavernous segments of the right internal carotid artery are unchanged. 3. Widely patent bilateral common carotid arteries, bilateral common carotid bifurcations, bilateral internal and external carotid arteries and the bilateral codominant vertebral arteries. 4. Widely patent aortic arch and origins of the great vessels. 5. No significant interval change when compared to 07/09/2018. Laboratory Results 06/25/19 09:43: WBC 8.2, RBC 4.77, Hgb 15.4 H, Hct 47.0, MCV 98.5, MCH 32.3 H, MCHC 32.8, RDW Std Deviation 45.2 H, RDW Coeff of Cherry 12.6, Plt Count 205, MPV 10.8, Immature Gran % (Auto) 0.500, Neut % (Auto) 64.1, Lymph % (Auto) 23.2, [place] % (Auto) 9.7, Eos % (Auto) 1.8, Baso % (Auto) 0.7, Absolute Neuts (auto) 5.3, Absolute Lymphs (auto) 1.91, Nucleated RBC % 0 06/25/19 09:43: PT 12.9, INR 1.0, APTT 26.6 06/25/19 09:43: Sodium 141, Potassium 4.3, Chloride 110 H, Carbon Dioxide 24.0, Anion Gap 7, BUN 13, Creatinine 1.01, Estim Creat Clear Calc 55.63, Est GFR (MDRD) Af Amer 74, Est GFR (MDRD) Non-Af 61, BUN/Creatinine Ratio 12.9, Glucose 187 H, Calcium 9.0, Troponin I < 0.015 06/25/19 10:26: POC Glucose 181 H 06/25/19 12:30: Total Bilirubin 0.40, Direct Bilirubin 0.14, AST 126 H, ALT 158 H, Alkaline Phosphatase 70, Troponin I < 0.015, Total Protein 8.0, Albumin 4.1, Globulin 3.9 06/25/19 12:30: Ethyl Alcohol Pending Code Visit OBSV E&M: [id number] Initial observation care L3
[2019-06-25 12:58] LABS: AST(SGOT) 126 U/L (15-37); Alanine Aminotransfer ALT/SGPT 158 U/L (13-56); Albumin, Serum 4.1 g/dL (3.2-5.0); Alkaline Phosphatase 70 U/L (45-117); Bilirubin, Direct 0.14 mg/dL (0.00-0.30); Globulin 3.9 g/dL (2.2-4.2)
--- NOTE | 2019-06-25 14:21 | PCM.CONS.GEN ---
Problem List (1) Speech disturbance Status: Acute Reason for Consult Date of Consultation: 06/25/19 Reason for Consultation: Speech disturbances History of Present Illness: The patient is a 53 year old F with PMH HTN, HLD,borderline DM, RA, hypothyroidism, H/O low back surgery, H/O provoked DVT post surgery, ? H/O seizures, JOSUE on CPAP admitted as a stroke alert. History is obtained from patient, her roommate as well as medical records and documentation. Per documentation patient was at work this morning 06/25/2019 when she suddenly had speech disturbances and had balance issues as well as some confusion, was later brought in as a stroke alert to [facility] ED, but per the roommate she had some symptoms since yesterday 06/24/2019, on arrival to the ED [facility] telestroke was consulted by the ED and as the onset of the symptom was not clear patient was not given IV TPA, per ED documentation NIHSS was 6 on admission but then it improved to 4. At present patient denies any speech disturbances, headache, dizziness, focal motor weakness, sensory loss. But per her roommate she thinks her speech is not back to her baseline at present. On examination there does not seem to be any speech deficit/aphasia or dysarthria at present and possibly at present NIHSS is 1 but there seems to be decreased effort on examination. Probably per patient she had an episode of transient global amnesia around March 2019 when she was on the flight to [place] and did not remember that she ever was in the flight. Per patient she had EEG for the same on 04/17/2019 which was reported normal. Per patient she is on aspirin and Plavix at baseline, started by Dr. Wang her PCP about a year ago. CTA head/neck done on admission did not show any hemodynamically significant stenosis or occlusion. ETOH level 232 high Past Medical History Past Medical History (Chronic Problems): Chronic Problems (Last Reviewed 10/24/18 @ 09:04 by Hussain Wild MD) MCTD (mixed connective tissue disease) (Chronic) Tobacco use disorder (Chronic) Rheumatoid arthritis (Chronic) Obesity (Chronic) Hypothyroidism (Chronic) Benign hypertension (Chronic) Medical History: Medical History (Last Reviewed 10/24/18 @ 09:04 by Hussain Wild MD) Tobacco use disorder (Chronic) F17.200 Rheumatoid arthritis (Chronic) M06.9 Obesity (Chronic) E66.9 Hypothyroidism (Chronic) E03.9 Benign hypertension (Chronic) I10 History of esophageal ulcer Z. Allergies fluorescein Allergy (Severe, Verified 11/03/18 11:35) Anaphylaxis hydroxychloroquine sulfate [From Plaquenil] Allergy (Verified 11/03/18 11:35) Angioedema Home Medications: Ambulatory Orders Medication Instructions Recorded Etanercept [Enbrel] 50 mg SQ [place] 06/17/14 Levothyroxine [Synthroid] 75 mcg PO DAILY 06/17/14 metFORMIN HCl [Glucophage] 500 mg PO BIDCM 06/17/14 Bisoprolol Fumarate [Zebeta (Beta 5 mg PO DAILY 07/09/18 Rommel)] Cholecalciferol (Vitamin D3) 2,000 units PO DAILY 07/09/18 [Vitamin D3] Clonidine HCl 0.1 - 0.2 mg PO DAILY 07/09/18 Spironolactone 100 mg PO DAILY 07/09/18 cycloBENZAPRine HCl [Flexeril] 10 mg PO PRN PRN 07/09/18 Venlafaxine HCl [Effexor] 150 mg PO DAILY 11/03/18 Aspirin [Aspirin, Baby] 81 mg PO DAILY@0800 tab.chew 06/26/19 Surgical History: Surgical History (Last Reviewed 10/24/18 @ 09:04 by Hussain Wild MD) History of breast biopsy Z98.890 History of colonoscopy Onset Date: ~2013 History of esophagogastroduodenoscopy (EGD) Onset Date: ~2013 History of hernia repair Onset Date: ~2014, History of repair of ACL Z98.890 Status post laparoscopic Divine fundoplication Onset Date: ~2013 Z Surgical History: tonsillectomy, - - back surgery Psychiatric History: No pertinent psych hx 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 Lives: - - With a friend Smoking Status: Current some day smoker Tobacco Use: Non-smoker Alcohol: Occasional Drugs: None - *Family History Maternal Family History: Family History (Last Reviewed 10/24/18 @ 09:04 by Hussain Wild MD) Father Heart disease Myocardial infarction Mother Hypertension Breast cancer Cancer Sister Hypertension History Items: Heart Disease, Hypertension Paternal Family History: Family History (Last Reviewed 10/24/18 @ 09:04 by Hussain Wild MD) Father Heart disease Myocardial infarction Mother Hypertension Breast cancer Cancer Sister Hypertension History Items: High Cholesterol, Heart Disease, Hypertension Review of Systems Constitutional: Reports: - - Complete ROS negative except as documented in HPI Patient Problems: Active and Suspected Problems (Last Reviewed 10/24/18 @ 09:04 by Hussain Wild MD) CVA (cerebral vascular accident) (Acute) Speech disturbance (Acute) - Physical Exam General: Alert HEENT: Normocephalic Neck: Supple Lungs: Normal air movement Cardiovascular: Normal S1, Normal S2 Abdomen: Bowel Sounds Present Extremities: No cyanosis Neurological: - - Conscious, alert, CN II through XII grossly intact, power 5 x 5 both upper extremities 5 x 5 right lower extremity and +4 x 5 left lower extremity, possible mild left leg drift versus decreased effort, no sensory loss, no cerebellar signs, gait deferred, reflexes + B/L B/S/T/K/A, there is no gaze palsy at present as documented by the nursing, NIHSS 1 at present, mRS 0 at baseline Psych/Mental Status: Normal Affect Vital Signs Temp Pulse Resp BP Pulse Ox 97.9 F 73 18 126/65 H 97 06/25/19 11:51 06/25/19 11:57 06/25/19 11:51 06/25/19 11:51 06/25/19 11:51 Oxygen Flow Rate (L/min) 2 Oxygen Delivery Method Room Air Weight: 119.4 kg Body Mass Index (BMI) 42.5 Finger Stick Blood Glucose 181 Laboratory Tests Past 24 Hrs 06/25/19 06/25/19 06/25/19 09:43 09:43 09:43 WBC 8.2 RBC 4.77 Hgb 15.4 H Hct 47.0 MCV 98.5 MCH 32.3 H MCHC 32.8 RDW Std Deviation 45.2 H RDW Coeff of Cherry 12.6 Plt Count 205 MPV 10.8 Immature Gran % (Auto) 0.500 Neut % (Auto) 64.1 Lymph % (Auto) 23.2 [place] % (Auto) 9.7 Eos % (Auto) 1.8 Baso % (Auto) 0.7 Absolute Neuts (auto) 5.3 Absolute Lymphs (auto) 1.91 Nucleated RBC % 0 PT 12.9 INR 1.0 APTT 26.6 Sodium 141 Potassium 4.3 Chloride 110 H Carbon Dioxide 24.0 Anion Gap 7 BUN 13 Creatinine 1.01 Estim Creat Clear Calc 55.63 Est GFR (MDRD) Af Amer 74 Est GFR (MDRD) Non-Af 61 BUN/Creatinine Ratio 12.9 Glucose 187 H Calcium 9.0 Total Bilirubin Direct Bilirubin AST ALT Alkaline Phosphatase Troponin I < 0.015 Total Protein Albumin Globulin Ethyl Alcohol 06/25/19 06/25/19 12:30 12:30 WBC RBC Hgb Hct MCV MCH MCHC RDW Std Deviation RDW Coeff of Cherry Plt Count MPV Immature Gran % (Auto) Neut % (Auto) Lymph % (Auto) [place] % (Auto) Eos % (Auto) Baso % (Auto) Absolute Neuts (auto) Absolute Lymphs (auto) Nucleated RBC % PT INR APTT Sodium Potassium Chloride Carbon Dioxide Anion Gap BUN Creatinine Estim Creat Clear Calc Est GFR (MDRD) Af Amer Est GFR (MDRD) Non-Af BUN/Creatinine Ratio Glucose Calcium Total Bilirubin 0.40 Direct Bilirubin 0.14 AST 126 H ALT 158 H Alkaline Phosphatase 70 Troponin I < 0.015 Total Protein 8.0 Albumin 4.1 Globulin 3.9 Ethyl Alcohol 232.0 POC Glucose 06/25/19 10:26 POC Glucose 181 H Assessment/Plan All Active Problems (Last Reviewed 10/24/18 @ 09:04 by Hussain Wild MD) CVA (cerebral vascular accident) (Acute) Speech disturbance (Acute) The patient is a 53 year old F with PMH HTN, HLD,borderline DM, RA, hypothyroidism, H/O low back surgery, H/O provoked DVT post surgery, ? H/O seizures, JOSUE on CPAP admitted as a stroke alert. History is obtained from patient, her roommate as well as medical records and documentation. Per documentation patient was at work this morning 06/25/2019 when she suddenly had speech disturbances and had balance issues as well as some confusion, was later brought in as a stroke alert to [facility] ED, but per the roommate she had some symptoms since yesterday 06/24/2019, on arrival to the ED [facility] telestroke was consulted by the ED and as the onset of the symptom was not clear patient was not given IV TPA, per ED documentation NIHSS was 6 on admission but then it improved to 4. At present patient denies any speech disturbances, headache, dizziness, focal motor weakness, sensory loss. But per her roommate she thinks her speech is not back to her baseline at present. On examination there does not seem to be any speech deficit/aphasia or dysarthria at present and possibly at present NIHSS is 1 but there seems to be decreased effort on examination. Probably per patient she had an episode of transient global amnesia around March 2019 when she was on the flight to [place] and did not remember that she ever was in the flight. Per patient she had EEG for the same on 04/17/2019 which was reported normal. Per patient she is on aspirin and Plavix at baseline, started by Dr. Wang her PCP about a year ago. CTA head/neck done on admission did not show any hemodynamically significant stenosis or occlusion. ETOH level high 232 Impression Likely ETOH intoxication, confusion Unlikely to be stroke/TIA Plan ?Check MRI brain without contrast ?On dual antiplatelet with aspirin and Plavix, started by PCP about a year ago. Bleeding risk discussed in detail with the patient. Can change to single antiplatelet with ASA. She also complains of increased bruisability with dual antiplatelet ?On Lipitor 40 mg p.o. nightly ?Check TTE ?LDL, HbA1c ?Stroke risk factors discussed and stroke education provided ?PT/OT/ST ?GI/DVT prophylaxis ?Fall precautions ?Long-term goal blood pressure less than 130/80 mmHg and goal HbA1c less than 7% ?Further medical management per hospitalist team. ?Follow-up with neurology as outpatient in 4 weeks ?Please call with questions if any ?Thank you for allowing us to participate in patient's current management Note has been generated using [employer] dictation software. It may contain incorrect words, spellings and punctuation that were not noted in the review of the note prior to signing. Code Visit Inpatient E&M: 20982 Init Hosp L3
[2019-06-25 16:50] LABS: Amphetamine Urine VISTA NEGATIVE (<1000 ng/mL); Barbiturate Urine VISTA NEGATIVE (< 200 ng/mL); Benzodiazepine Urine VISTA NEGATIVE (< 200 ng/mL); Cocaine Urine VISTA NEGATIVE (< 300 ng/mL); Ecstacy Urine VISTA NEGATIVE (< 500 ng/mL); Methadone Urine VISTA NEGATIVE (< 300 ng/mL); PCP Urine VISTA NEGATIVE (< 25 ng/mL); THC Urine VISTA NEGATIVE (< 50 ng/mL); Vista UDS pH Range 6
[2019-06-25 16:56] LABS: Bedside Glucose 110 mg/dL (70-110)
[2019-06-25] MEDS: Atorvastatin Calcium 40 MG Tablet PO (21:48)
[2019-06-25] MEDS: Famotidine 20 MG Tablet PO (21:48)
[2019-06-25] MEDS: 0.9% NaCl Peripheral Flush Adult/Peds IV (22:17)
[2019-06-25] MEDS: Ondansetron 4 MG/2 ML Vial IV (22:18)
[2019-06-25 22:40] LABS: Bedside Glucose 141 mg/dL (70-110)
[2019-06-26 01:38] VITALS: BP 143/71; PULSE 88; RESP 16; TEMP 36.8; O2SAT 97
[2019-06-26] MEDS: Acetaminophen 325 MG Tablet 650 MG PO (01:54)
[2019-06-26 03:02] VITALS: PULSE 90
[2019-06-26 05:38] VITALS: BP 133/74; PULSE 84; RESP 18; TEMP 36.6; O2SAT 95
[2019-06-26] MEDS: Levothyroxine 75 MCG Tablet PO (05:50)
[2019-06-26 06:41] LABS: Bedside Glucose 139 mg/dL (70-110)
[2019-06-26 06:44] VITALS: PULSE 90
[2019-06-26 06:58] LABS: Anion Gap 7 (5-15); BUN 15 mg/dL (7-18); BUN/Creat Ratio 14.6 RATIO (10-20); Calcium,Total 8.8 mg/dL (8.5-10.1); Chloride 105 mmol/L (98-107); Cholesterol 186 mg/dL (200); Creatinine, Serum 1.03 mg/dL (0.55-1.02); EST Glomerular Filtration Rate 59 mL/min (>60); Est Glom Filt Rate - Afr Amer 72 mL/min (>60); Estimated Creatinine Clearance 59.13 ml/min; Glucose 133 mg/dL (74-106); High Density Lipoprotein 59 mg/dL; Potassium 3.9 mmol/L (3.5-5.1); Sodium Level 141 mmol/L (136-145); Thyroid Stim Hormone (TSH) 2.59 uIU/mL (0.358-3.74); Triglycerides 193 mg/dL; Very Low Density Lipoprotein 39 mg/dL (5-40)
[2019-06-26 07:30] VITALS: O2SAT 97; BMI 42.5
[2019-06-26] MEDS: Aspirin 81 MG TAB.CHEW PO (07:32)
[2019-06-26 08:55] LABS: Hemoglobin A1c 6.4 % (4.2-6.3)
[2019-06-26 09:20] VITALS: BP 136/75; PULSE 75; RESP 18; TEMP 36.8; O2SAT 94
[2019-06-26] MEDS: Enoxaparin 40 MG/0.4 ML Syringe SC (09:24)
[2019-06-26] MEDS: Clopidogrel Bisulfate 75 MG Tablet PO (09:24)
[2019-06-26] MEDS: Bisoprolol Fumarate 5 MG Tablet PO (09:24)
[2019-06-26] MEDS: Famotidine 20 MG Tablet PO (09:24)
[2019-06-26] MEDS: Venlafaxine XR 150 MG Capsule PO (09:24)
[2019-06-26 11:21] LABS: Bedside Glucose 176 mg/dL (70-110)
--- NOTE | 2019-06-26 11:22 | DCINST_ITS ---
- Discharge Diagnoses Current Active Problems: Current Active and Chronic Problems (Last Reviewed 10/24/18 @ 09:04 by Hussain Wild MD) CVA (cerebral vascular accident) (Acute) MCTD (mixed connective tissue disease) (Chronic) Speech disturbance (Acute) You will use the following diet at home:: Calorie/Carbohydrate Controlled (specify 1200, 1400, etc) - 1800 SCOUT Your food should be the consistency of: Regular Your liquids should be the consistency of: Regular/Thin Discharge Activity: Return to Normal Activity Allergies/Adverse Reactions: Allergies fluorescein Allergy (Severe, Verified 11/03/18 11:35) Anaphylaxis hydroxychloroquine sulfate [From Plaquenil] Allergy (Verified 11/03/18 11:35) Angioedema Medications to take at Discharge Etanercept [Enbrel] 50 mg SQ [place] 06/17/14 Levothyroxine [Synthroid] 75 mcg PO DAILY 06/17/14 metFORMIN HCl [Glucophage] 500 mg PO BIDCM 06/17/14 Bisoprolol Fumarate [Zebeta (Beta Rommel)] 5 mg PO DAILY 07/09/18 Cholecalciferol (Vitamin D3) [Vitamin D3] 2,000 units PO DAILY 07/09/18 Clonidine HCl 0.1 - 0.2 mg PO DAILY 07/09/18 Spironolactone 100 mg PO DAILY 07/09/18 cycloBENZAPRine HCl [Flexeril] 10 mg PO PRN PRN 07/09/18 Venlafaxine HCl [Effexor] 150 mg PO DAILY 11/03/18 Aspirin [Aspirin, Baby] 81 mg PO DAILY@0800 tab.chew 06/26/19 Primary Care Physician: Stephon Wang MD [Primary Care Provider] - Please follow up with your Primary Care Physician in: IN ONE WEEK Test Results: Test results from this visit will be discussed in further detail at your follow- up appointment, if applicable.
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
--- NOTE | 2019-06-26 11:30 | CASEMGMT ---
SW did not complete a PHQ-9 as per physician patient did not have a Stroke or TIA. Lola STEVENS MSW
[2019-06-27 08:42] LABS: Vitamin B12 271 pg/mL (211-911)
--- NOTE | 2019-06-28 09:33 | DS.PCM_ITS ---
Discharge Date and Diagnosis Date of Admission: 06/25/19 Date of Discharge: 06/26/19 - Primary Discharge Diagnosis #1 toxic encephalopathy secondary to alcohol intoxication #2 alcohol intoxication #3 type 2 diabetes #4 morbid obesity #5 rheumatoid arthritis - Secondary Discharge Diagnosis Chronic Problems (Last Reviewed 10/24/18 @ 09:04 by Hussain Wild MD) MCTD (mixed connective tissue disease) (Chronic) Tobacco use disorder (Chronic) Rheumatoid arthritis (Chronic) Obesity (Chronic) Hypothyroidism (Chronic) Benign hypertension (Chronic) Hospital Course and Treatment Procedures: 2-D Echocardiogram Summary of Care Provided: The patient is a 53 year old F was seen in the emergency room at [facility] with complaints of a sudden onset of slurred speech. Patient gave a past history of TIA/stroke in the past. Work-up in the emergency room included a CT showed an old infarct but no acute process. CTA of the head and neck showed no acute process, AST and ALT were elevated, tox screen was negative, ethyl alcohol level was elevated at 232. Patient was placed in observation status on PCU for possible stroke, she was seen in consultation by neurology and underwent an MRI which showed no evidence of acute stroke. Neurology felt that the patient's symptoms were attributed to intoxication from alcohol. Patient denied drinking for 8 to 10 hours before her emergency room visit however. Patient denied any routine heavy use of alcohol. On 06/26/2019, patient was seen and examined: On examination she appeared in good health and spirits. Vital signs as documented. Skin warm and dry and without overt rashes. Neck without JVD. Lungs clear. Heart exam notable for regular rhythm, normal sounds and absence of murmurs, rubs or gallops. Abdomen u nremarkable and without evidence of organomegaly, masses, or abdominal aortic enlargement. Extremities nonedematous. Neuro: Cranial nerves II through XII are grossly intact, no focal motor deficits were noted, sensation to light touch and pinprick is intact. Psych: Patient is alert and oriented x3, she does not appear anxious or depressed On 06/26/2019, patient was seen and examined felt to be in stable condition for discharge home - Physical Exam Vital Signs Temp Pulse Resp BP Pulse Ox 98.2 F 75 18 136/75 H 94 06/26/19 09:20 06/26/19 09:20 06/26/19 09:20 06/26/19 09:20 06/26/19 09:20 Oxygen Flow Rate (L/min) 2 Oxygen Delivery Method Room Air Weight: 119.4 kg Body Mass Index (BMI) 42.5 Finger Stick Blood Glucose 181 Intake and Output for Last 24 Hours 06/26/19 06/27/19 06/28/19 23:59 23:59 23:59 Intake Total 1068.33 / 1068.33 Balance 1068.33 / 1068.33 Discharge Activity: Return to Normal Activity Home Medications: Medications to take at Discharge Etanercept [Enbrel] 50 mg SQ [place] 06/17/14 Levothyroxine [Synthroid] 75 mcg PO DAILY 06/17/14 metFORMIN HCl [Glucophage] 500 mg PO BIDCM 06/17/14 Bisoprolol Fumarate [Zebeta (Beta Rommel)] 5 mg PO DAILY 07/09/18 Cholecalciferol (Vitamin D3) [Vitamin D3] 2,000 units PO DAILY 07/09/18 Clonidine HCl 0.1 - 0.2 mg PO DAILY 07/09/18 Spironolactone 100 mg PO DAILY 07/09/18 cycloBENZAPRine HCl [Flexeril] 10 mg PO PRN PRN 07/09/18 Venlafaxine HCl [Effexor] 150 mg PO DAILY 11/03/18 Aspirin [Aspirin, Baby] 81 mg PO DAILY@0800 tab.chew 06/26/19 Primary Care Physician: Stephon Wang MD [Primary Care Provider] - Please follow up with your Primary Care Physician in: IN ONE WEEK Disposition: Home Minutes spent on discharge:: 30 Patient Condition:: Stable Medical Necessity - Tobacco Use Smoking Status: Current some day smoker Tobacco Use: Non-smoker Meaningful Use Info Meaningful Use Diagnoses (Choose all that apply): None applicable Code Visit OBSV E&M: 62575 Observation care discharge
== END 2019-06-26 11:25 | disposition home or self-care (01) ==
LOC: ED 11:01 → PCU 11:12
PROVIDERS: Admitting Provider Internal Medicine; Emergency Provider Emergency Medicine; Family Provider Family Medicine; PCP Family Medicine; Referring Provider Internal Medicine; Visit Provider Internal Medicine
DX: G92 Toxic encephalopathy (principal); F10.129 Alcohol abuse with intoxication, unspecified; Y90.7 Blood alcohol level of 200-239 mg/100 ml; R47.81 Slurred speech; E11.9 Type 2 diabetes mellitus without complications; I10 Essential (primary) hypertension; E78.00 Pure hypercholesterolemia, unspecified; M06.9 Rheumatoid arthritis, unspecified; E03.9 Hypothyroidism, unspecified; M35.1 Other overlap syndromes; R29.706 NIHSS score 6; F41.9 Anxiety disorder, unspecified; F32.9 Major depressive disorder, single episode, unspecified; K21.9 Gastro-esophageal reflux disease without esophagitis; E66.01 Morbid (severe) obesity due to excess calories; F17.200 Nicotine dependence, unspecified, uncomplicated; G47.33 Obstructive sleep apnea (adult) (pediatric); Z86.73 Personal history of transient ischemic attack (TIA), and cerebral infarction without residual deficits; Z79.84 Long term (current) use of oral hypoglycemic drugs; Z79.82 Long term (current) use of aspirin; Z79.02 Long term (current) use of antithrombotics/antiplatelets; Z79.899 Other long term (current) drug therapy; Z68.41 Body mass index [BMI] 40.0-44.9, adult; Z71.3 Dietary counseling and surveillance
CPT/HCPCS: 36415; 70450; 70496; 70498; 70551; 71045; 80048; 80061; 80076; 80307; 80320; 82607; 82746; 82962; 83036; 84443; 84484; 85025; 85610; 85730; 92523; 93005; 93306; 94762; 96361; 96372; 96374; 97165; 99218; 99284; 99406; J7030; Q9957; Q9967; A4216; C8929; G0378; G0480; J2405

== ENCOUNTER → 2019-07-20 08:10 | Outpatient (CLI) | payer OTHER, SELFPAY ==
[2019-06-26 07:30] VITALS: BMI 42.5
[2019-07-20 08:33] LABS: Absolute Lymphocyte Count 2.52 X10^3/uL (0.83-4.51); Absolute Neutrophil Count 4.4 X10^3/uL (2.0-7.7); Basophil# 0.07 X10^3/uL; Basophil% 0.9 % (0-1); Eosinophils% 2.5 % (0-5); Hematocrit 46.1 % (37-47); Hemoglobin 15.1 g/dL (12.0-15.0); Lymphocyte # 2.52 X10^3/ul (4.0); Lymphocyte % 30.9 % (19-41); Mean Corp Hgb Conc 32.8 g/dL (32-36); Mean Corpuscular Volume 100.7 fL (81-99); Mean Platelet Vol. 11.5 fl (6.2-12.0); Monocyte# 0.89 X10^3/uL; Monocyte% 10.9 % (0-10); NRBC Flagged by Analyzer 0 % (0-5); Neutrophil # 4.44 X10^3/uL (2.7-7.7); Neutrophil % 54.3 % (47-70); Platelet Count 191 K/mm3 (150-450); RBC Distribution Width CV 12.6 % (11.6-14.6); RBC Distribution Width SD 46.4 fl (35.1-43.9); Red Blood Count 4.58 M/mm3 (4.2-5.4); White Blood Count 8.2 K/mm3 (4.4-11.0)
[2019-07-20 08:57] LABS: ALB/GLOB Ratio 1.1 RATIO (0.9-2.4); AST(SGOT) 42 U/L (15-37); Alanine Aminotransfer ALT/SGPT 76 U/L (13-56); Albumin, Serum 4.1 g/dL (3.2-5.0); Alkaline Phosphatase 68 U/L (45-117); Anion Gap 6 (5-15); BUN 13 mg/dL (7-18); BUN/Creat Ratio 13.2 RATIO (10-20); Calcium,Total 9.7 mg/dL (8.5-10.1); Chloride 103 mmol/L (98-107); Creatinine, Serum 0.99 mg/dL (0.55-1.02); EST Glomerular Filtration Rate 62 mL/min (>60); Est Glom Filt Rate - Afr Amer 76 mL/min (>60); Globulin 3.6 g/dL (2.2-4.2); Glucose 129 mg/dL (74-106); Potassium 3.9 mmol/L (3.5-5.1); Protein, Total 7.7 g/dL (6.4-8.2); Sodium Level 139 mmol/L (136-145)
== END ==
PROVIDERS: Family Provider Family Medicine; PCP Family Medicine; Referring Provider Internal Medicine Rheumatology; Visit Provider Internal Medicine Rheumatology
DX: M06.00 Rheumatoid arthritis without rheumatoid factor, unspecified site (principal); K76.0 Fatty (change of) liver, not elsewhere classified; M18.11 Unilateral primary osteoarthritis of first carpometacarpal joint, right hand; M47.897 Other spondylosis, lumbosacral region; K21.0 Gastro-esophageal reflux disease with esophagitis; G47.33 Obstructive sleep apnea (adult) (pediatric); E11.9 Type 2 diabetes mellitus without complications; I10 Essential (primary) hypertension; E03.9 Hypothyroidism, unspecified; R51 Headache; Z79.899 Other long term (current) drug therapy; Z86.73 Personal history of transient ischemic attack (TIA), and cerebral infarction without residual deficits
CPT/HCPCS: 36415; 80053; 85025

== ENCOUNTER → 2019-10-15 16:13 | Outpatient (CLI) | payer OTHER, SELFPAY ==
[2019-10-08 10:13] VITALS: BMI 42.5
--- NOTE | 2019-10-15 16:17 | RAD_ITS ---
STUDY: X-RAY - CERVICAL SPINE REASON FOR EXAM: Female, 54 years old. right arm pain TECHNIQUE: 6 view(s) of the cervical spine were obtained. COMPARISON: None FINDINGS: Normal anterior atlantoaxial articulation. Normal odontoid process. Normal cervical lordosis. There is mild endplate spondylosis of C3-C6. There is mild narrowing of the C4-5 and C6-7 disc spaces. There is bilateral foraminal narrowing at the C4-5 and C6-7 levels. The soft tissue structures are unremarkable. RAD/Cerv Spine 4 or 5 Views IMPRESSION: Mild endplate spondylosis of C3-C6. Mild narrowing of the C4-5 and C6-7 disc spaces. There is bilateral foraminal narrowing at the C4-5 and C6-7 levels. Electronically Signed: Vasile Roman MD at 23:50 EST , Service support ,
== END ==
PROVIDERS: Family Provider Family Medicine; PCP Family Medicine; Referring Provider Family Medicine; Visit Provider Family Medicine
DX: M54.10 Radiculopathy, site unspecified (principal)
CPT/HCPCS: 72050

== ENCOUNTER 2019-11-11 17:00 | Outpatient (RCR) | payer OTHER, SELFPAY ==
[2019-10-22 07:59] VITALS: BMI 42.5
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
--- NOTE | 2019-12-18 13:44 | HP.PT.NRP ---
HP - Discharge Summary (1) - Patient Information PRABHAKAR ESPINAL was seen in my office for initial evaluation on 11/02/19. The following Plan of Care was established for this patient: Initial Frequency: 2-3x /Week Initial Duration: 4-6 Weeks - Anticipated Interventions Patient/Client Instruction: Educate patient on: Condition, Plan of Care, Risk Factors, Benefits of Fitness Program For the Purpose of:: To improve self management Therapeutic Exercise to Include: Strength training, Body mechanics, Postural training, Flexibilty training, Neuromotor development, Scapular Strength/Stabilization For the Purpose of:: To decrease pain, To increase ROM, To improve muscle performance and motor function, To increase tolerance to activity/condition/position, To improve ability of physical actions for home/community/work/leisure TENS: Yes IF ES: Yes Cryotherapy (ice pack, ice massage): Yes Thermo therapy (hot pack): Yes Ultrasound (thermal/non thermal): Yes For the Purpose of:: To decrease pain, To increase ROM, To improve nutrient delivery to tissue This patient was last seen in our office 11/11/19. Pertinent comments regarding their Physical therapy will appear below: This patient has not returned to Physical Therapy and is appropriate to return to MD for further follow-up as needed. At this point I will be discontinuing this patient from physical therapy. I would be happy to see this patient again in the future if found appropriate by the physician. Thank you! Araceli Partida, PT, Cert MDT
== END 2019-11-11 19:00 | disposition home or self-care (01) ==
LOC: PT 17:00
PROVIDERS: Family Provider Family Medicine; PCP Family Medicine; Referring Provider Family Medicine; Visit Provider Family Medicine
DX: M54.12 Radiculopathy, cervical region (principal); M47.812 Spondylosis without myelopathy or radiculopathy, cervical region; M50.30 Other cervical disc degeneration, unspecified cervical region
CPT/HCPCS: 97035; 97110; 97112; 97140; 97162; 97530

== ENCOUNTER → 2019-11-13 07:44 | Outpatient (CLI) | payer OTHER, SELFPAY ==
[2019-10-22 07:59] VITALS: BMI 42.5
[2019-11-13 10:45] LABS: Absolute Lymphocyte Count 2.61 X10^3/uL (0.83-4.51); Absolute Neutrophil Count 3.2 X10^3/uL (2.0-7.7); Basophil# 0.06 X10^3/uL; Basophil% 0.9 % (0-1); Eosinophil# 0.09 X10^3/uL; Eosinophils% 1.3 % (0-5); Hematocrit 45.4 % (37-47); Hemoglobin 14.6 g/dL (12.0-15.0); Lymphocyte # 2.61 X10^3/ul (4.0); Lymphocyte % 38.2 % (19-41); Mean Corp Hgb Conc 32.2 g/dL (32-36); Mean Corpuscular Hgb 31.6 pg (27.0-32.0); Mean Corpuscular Volume 98.3 fL (81-99); Mean Platelet Vol. 12.1 fl (6.2-12.0); Monocyte# 0.85 X10^3/uL; Monocyte% 12.4 % (0-10); NRBC Flagged by Analyzer 0 % (0-5); Neutrophil # 3.18 X10^3/uL (2.7-7.7); Neutrophil % 46.6 % (47-70); Platelet Count 193 K/mm3 (150-450); RBC Distribution Width CV 12.3 % (11.6-14.6); Red Blood Count 4.62 M/mm3 (4.2-5.4); White Blood Count 6.8 K/mm3 (4.4-11.0)
[2019-11-13 11:03] LABS: ALB/GLOB Ratio 1.1 RATIO (0.9-2.4); AST(SGOT) 105 U/L (15-37); Alanine Aminotransfer ALT/SGPT 118 U/L (13-56); Albumin, Serum 3.9 g/dL (3.2-5.0); Alkaline Phosphatase 76 U/L (45-117); Anion Gap 10 (5-15); BUN 13 mg/dL (7-18); BUN/Creat Ratio 10.7 RATIO (10-20); Calcium,Total 9.4 mg/dL (8.5-10.1); Chloride 99 mmol/L (98-107); Creatinine, Serum 1.22 mg/dL (0.55-1.02); EST Glomerular Filtration Rate 49 mL/min (>60); Est Glom Filt Rate - Afr Amer 59 mL/min (>60); Globulin 3.6 g/dL (2.2-4.2); Glucose 444 mg/dL (74-106); Potassium 3.6 mmol/L (3.5-5.1); Protein, Total 7.5 g/dL (6.4-8.2); Sodium Level 132 mmol/L (136-145)
== END ==
PROVIDERS: PCP Family Medicine; Referring Provider Internal Medicine Rheumatology; Visit Provider Internal Medicine Rheumatology
DX: M06.00 Rheumatoid arthritis without rheumatoid factor, unspecified site (principal); K76.0 Fatty (change of) liver, not elsewhere classified; M18.11 Unilateral primary osteoarthritis of first carpometacarpal joint, right hand; M47.897 Other spondylosis, lumbosacral region; K21.0 Gastro-esophageal reflux disease with esophagitis; Z79.899 Other long term (current) drug therapy
CPT/HCPCS: 36415; 80053; 85025

== ENCOUNTER → 2020-03-17 11:37 | Outpatient (CLI) | payer OTHER, SELFPAY ==
[2019-10-22 07:59] VITALS: BMI 42.5
[2020-03-17 15:40] LABS: Absolute Lymphocyte Count 2.51 X10^3/uL (0.83-4.51); Absolute Neutrophil Count 3.8 X10^3/uL (2.0-7.7); Basophil# 0.06 X10^3/uL; Basophil% 0.8 % (0-1); Eosinophil# 0.17 X10^3/uL; Eosinophils% 2.3 % (0-5); Hematocrit 46.2 % (37-47); Hemoglobin 15.2 g/dL (12.0-15.0); Lymphocyte # 2.51 X10^3/ul (4.0); Lymphocyte % 33.9 % (19-41); Mean Corp Hgb Conc 32.9 g/dL (32-36); Mean Corpuscular Hgb 32.8 pg (27.0-32.0); Mean Corpuscular Volume 99.6 fL (81-99); Mean Platelet Vol. 11.2 fl (6.2-12.0); Monocyte# 0.86 X10^3/uL; Monocyte% 11.6 % (0-10); NRBC Flagged by Analyzer 0 % (0-5); Neutrophil # 3.77 X10^3/uL (2.7-7.7); Platelet Count 212 K/mm3 (150-450); RBC Distribution Width CV 14.2 % (11.6-14.6); RBC Distribution Width SD 51.4 fl (35.1-43.9); Red Blood Count 4.64 M/mm3 (4.2-5.4); White Blood Count 7.4 K/mm3 (4.4-11.0)
[2020-03-17 15:59] LABS: ALB/GLOB Ratio 0.9 RATIO (0.9-2.4); AST(SGOT) 83 U/L (15-37); Alanine Aminotransfer ALT/SGPT 81 U/L (13-56); Albumin, Serum 3.9 g/dL (3.2-5.0); Alkaline Phosphatase 70 U/L (45-117); Amylase 49 U/L (25-115); Anion Gap 11 (5-15); BUN 17 mg/dL (7-18); BUN/Creat Ratio 17.8 RATIO (10-20); CRP 3.46 mg/L (0.0-3.0); Calcium,Total 9.3 mg/dL (8.5-10.1); Chloride 105 mmol/L (98-107); Creatinine, Serum 0.96 mg/dL (0.55-1.02); EST Glomerular Filtration Rate 65 mL/min (>60); Est Glom Filt Rate - Afr Amer 78 mL/min (>60); Globulin 4.2 g/dL (2.2-4.2); Glucose 95 mg/dL (74-106); Lipase 144 U/L (73-393); Protein, Total 8.1 g/dL (6.4-8.2); Sodium Level 139 mmol/L (136-145); Thyroid Stim Hormone (TSH) 0.71 uIU/mL (0.358-3.74)
[2020-03-17 16:14] LABS: Hemoglobin A1c 5.8 % (3.8-5.6)
== END ==
PROVIDERS: PCP Family Medicine; Referring Provider Family Medicine; Visit Provider Family Medicine
DX: R10.12 Left upper quadrant pain (principal); E11.9 Type 2 diabetes mellitus without complications
CPT/HCPCS: 36415; 80053; 82150; 83036; 83690; 84443; 85025; 86140

== ENCOUNTER → 2020-06-02 12:00 | Outpatient (CLI) | payer OTHER, SELFPAY ==
[2019-10-22 07:59] VITALS: BMI 42.5
[2020-06-02 15:28] LABS: Absolute Lymphocyte Count 1.99 X10^3/uL (0.83-4.51); Basophil# 0.07 X10^3/uL; Basophil% 1.2 % (0-1); Eosinophil# 0.13 X10^3/uL; Eosinophils% 2.2 % (0-5); Hematocrit 46.4 % (37-47); Lymphocyte # 1.99 X10^3/ul (4.0); Lymphocyte % 33.2 % (19-41); Mean Corp Hgb Conc 32.3 g/dL (32-36); Mean Corpuscular Hgb 33.3 pg (27.0-32.0); Mean Corpuscular Volume 102.9 fL (81-99); Mean Platelet Vol. 12.1 fl (6.2-12.0); Monocyte# 0.81 X10^3/uL; Monocyte% 13.5 % (0-10); NRBC Flagged by Analyzer 0 % (0-5); Neutrophil # 2.97 X10^3/uL (2.7-7.7); Neutrophil % 49.4 % (47-70); Platelet Count 174 K/mm3 (150-450); RBC Distribution Width CV 12.9 % (11.6-14.6); RBC Distribution Width SD 48.4 fl (35.1-43.9); Red Blood Count 4.51 M/mm3 (4.2-5.4)
[2020-06-02 15:49] LABS: AST(SGOT) 73 U/L (15-37); Alanine Aminotransfer ALT/SGPT 150 U/L (13-56); Albumin, Serum 3.9 g/dL (3.2-5.0); Alkaline Phosphatase 74 U/L (45-117); Anion Gap 5 (5-15); BUN 12 mg/dL (7-18); BUN/Creat Ratio 13.8 RATIO (10-20); Calcium,Total 9.1 mg/dL (8.5-10.1); Chloride 107 mmol/L (98-107); Creatinine, Serum 0.87 mg/dL (0.55-1.02); EST Glomerular Filtration Rate 72 mL/min (>60); Est Glom Filt Rate - Afr Amer 87 mL/min (>60); Globulin 3.8 g/dL (2.2-4.2); Glucose 172 mg/dL (74-106); Potassium 4.1 mmol/L (3.5-5.1); Protein, Total 7.7 g/dL (6.4-8.2); Sodium Level 139 mmol/L (136-145)
== END ==
PROVIDERS: PCP Family Medicine; Referring Provider Internal Medicine Rheumatology; Visit Provider Internal Medicine Rheumatology
DX: M06.00 Rheumatoid arthritis without rheumatoid factor, unspecified site (principal); M18.11 Unilateral primary osteoarthritis of first carpometacarpal joint, right hand; M47.897 Other spondylosis, lumbosacral region; E11.9 Type 2 diabetes mellitus without complications; I10 Essential (primary) hypertension; E03.9 Hypothyroidism, unspecified; K76.0 Fatty (change of) liver, not elsewhere classified; K21.0 Gastro-esophageal reflux disease with esophagitis; G47.33 Obstructive sleep apnea (adult) (pediatric); R51 Headache; Z79.899 Other long term (current) drug therapy; Z86.73 Personal history of transient ischemic attack (TIA), and cerebral infarction without residual deficits
CPT/HCPCS: 36415; 80053; 85025

== ENCOUNTER → 2020-11-29 16:38 | Outpatient (CLI) | payer OTHER, SELFPAY ==
[2020-11-10 08:14] VITALS: BMI 43.0
[2020-11-29 17:28] LABS: Absolute Neutrophil Count 3.5 X10^3/uL (2.0-7.7); Basophil# 0.06 X10^3/uL; Basophil% 0.7 % (0-1); Eosinophil# 0.15 X10^3/uL; Eosinophils% 1.7 % (0-5); Hematocrit 48.6 % (37-47); Hemoglobin 16.6 g/dL (12.0-15.0); Lymphocyte % 47.9 % (19-41); Mean Corp Hgb Conc 34.2 g/dL (32-36); Mean Corpuscular Hgb 32.5 pg (27.0-32.0); Mean Corpuscular Volume 95.3 fL (81-99); Mean Platelet Vol. 12.2 fl (6.2-12.0); Monocyte# 0.85 X10^3/uL; Monocyte% 9.7 % (0-10); NRBC Flagged by Analyzer 0 % (0-5); Neutrophil # 3.48 X10^3/uL (2.7-7.7); Neutrophil % 39.8 % (47-70); Platelet Count 227 K/mm3 (150-450); RBC Distribution Width CV 11.9 % (11.6-14.6); RBC Distribution Width SD 41.9 fl (35.1-43.9); White Blood Count 8.8 K/mm3 (4.4-11.0)
[2020-11-29 17:57] LABS: AST(SGOT) 107 U/L (15-37); Alanine Aminotransfer ALT/SGPT 129 U/L (13-56); Alkaline Phosphatase 119 U/L (45-117); Anion Gap 12 (5-15); BUN 16 mg/dL (7-18); BUN/Creat Ratio 13.8 RATIO (10-20); Calcium,Total 9.4 mg/dL (8.5-10.1); Chloride 101 mmol/L (98-107); Creatinine, Serum 1.16 mg/dL (0.55-1.02); EST Glomerular Filtration Rate 52 mL/min (>60); Est Glom Filt Rate - Afr Amer 62 mL/min (>60); Glucose 260 mg/dL (74-106); Potassium 3.7 mmol/L (3.5-5.1); Sodium Level 136 mmol/L (136-145)
== END ==
PROVIDERS: PCP Family Medicine; Referring Provider Internal Medicine Rheumatology; Visit Provider Internal Medicine Rheumatology
DX: M06.00 Rheumatoid arthritis without rheumatoid factor, unspecified site (principal); K76.0 Fatty (change of) liver, not elsewhere classified; M18.11 Unilateral primary osteoarthritis of first carpometacarpal joint, right hand; M47.897 Other spondylosis, lumbosacral region; K21.00 Gastro-esophageal reflux disease with esophagitis, without bleeding; G47.33 Obstructive sleep apnea (adult) (pediatric); E11.9 Type 2 diabetes mellitus without complications; I10 Essential (primary) hypertension; E03.9 Hypothyroidism, unspecified; R51.9 Headache, unspecified; Z79.899 Other long term (current) drug therapy; Z86.73 Personal history of transient ischemic attack (TIA), and cerebral infarction without residual deficits
CPT/HCPCS: 36415; 80053; 85025

== ENCOUNTER → 2021-01-23 16:44 | Outpatient (CLI) | payer OTHER, SELFPAY ==
[2020-11-10 08:14] VITALS: BMI 43.0
--- NOTE | 2021-01-23 16:46 | RAD_ITS ---
STUDY: X-RAY - LEFT HUMERUS REASON FOR EXAM: Female, 55 years old. FALL WITH INJURY TECHNIQUE: 2 view(s) of the humerus. COMPARISON: None. FINDINGS: Normal visualized humerus. There is no demonstrated fracture or osseous destructive process. There is no demonstrated soft tissue abnormality. RAD/Humerus min 2 Views IMPRESSION: Normal x-ray examination of the humerus. Electronically Signed: Kota Daniel MD at 9:17 EDT Tel , Service support ,
--- NOTE | 2021-01-23 16:46 | RAD_ITS ---
STUDY: X-RAY - LEFT RADIUS AND ULNA REASON FOR EXAM: Female, 55 years old. FALL WITH INJURY TECHNIQUE: 2 view(s) of the forearm. COMPARISON: None. FINDINGS: There is no demonstrated soft tissue swelling. Normal visualized radius. Normal visualized ulna. RAD/Forearm 2 Views IMPRESSION: Normal x-ray examination of the radius and ulna. Electronically Signed: Kota Daniel MD at 9:19 EDT Tel , Service support ,
== END ==
PROVIDERS: PCP Family Medicine; Referring Provider Family Medicine; Visit Provider Family Medicine
DX: M79.602 Pain in left arm (principal); T14.90XA Injury, unspecified, initial encounter; W19.XXXA Unspecified fall, initial encounter; Y93.9 Activity, unspecified; Y92.9 Unspecified place or not applicable; Y99.9 Unspecified external cause status
CPT/HCPCS: 73060; 73090

== ENCOUNTER → 2021-02-06 16:07 | Outpatient (CLI) | payer OTHER, SELFPAY ==
[2020-11-10 08:14] VITALS: BMI 43.0
[2021-02-06 17:38] LABS: Absolute Lymphocyte Count 2.29 X10^3/uL (0.83-4.51); Absolute Neutrophil Count 2.7 X10^3/uL (2.0-7.7); Basophil# 0.03 X10^3/uL; Basophil% 0.5 % (0-1); Eosinophil# 0.06 X10^3/uL; Hematocrit 46.1 % (37-47); Hemoglobin 15.3 g/dL (12.0-15.0); Lymphocyte # 2.29 X10^3/ul (0.83-4.51); Lymphocyte % 39.6 % (19-41); Mean Corp Hgb Conc 33.2 g/dL (32-36); Mean Corpuscular Hgb 32.6 pg (27.0-32.0); Mean Corpuscular Volume 98.3 fL (81-99); Mean Platelet Vol. 12.6 fl (6.2-12.0); Monocyte# 0.72 X10^3/uL; Monocyte% 12.5 % (0-10); NRBC Flagged by Analyzer 0 % (0-5); Neutrophil # 2.66 X10^3/uL (2.7-7.7); Neutrophil % 46.1 % (47-70); Platelet Count 201 K/mm3 (150-450); RBC Distribution Width SD 46.6 fl (35.1-43.9); Red Blood Count 4.69 M/mm3 (4.2-5.4); White Blood Count 5.8 K/mm3 (4.4-11.0)
[2021-02-06 18:31] LABS: AST(SGOT) 95 U/L (15-37); Alanine Aminotransfer ALT/SGPT 122 U/L (13-56); Albumin, Serum 3.9 g/dL (3.2-5.0); Alkaline Phosphatase 97 U/L (45-117); Anion Gap 9 (5-15); BUN 11 mg/dL (7-18); BUN/Creat Ratio 12.5 RATIO (10-20); Calcium,Total 9.9 mg/dL (8.5-10.1); Chloride 101 mmol/L (98-107); Creatinine, Serum 0.88 mg/dL (0.55-1.02); EST Glomerular Filtration Rate 71 mL/min (>60); Est Glom Filt Rate - Afr Amer 86 mL/min (>60); Glucose 179 mg/dL (74-106); Potassium 3.9 mmol/L (3.5-5.1); Protein, Total 7.9 g/dL (6.4-8.2); Sodium Level 136 mmol/L (136-145)
[2021-02-09 04:07] LABS: QNTFERON TB Mitogen Value > 10.00 IU/mL (.); QNTFERON TB Nil Value 0.02 IU/mL (.); QNTFERON TB1+ Ag Value 0 IU/mL (.); QNTFERON TB2+ Ag Value 0 IU/mL (.)
[2021-02-09 07:48] LABS: QNTIFERON TB Positive Criteria Negative (Negative)
== END ==
PROVIDERS: PCP Family Medicine; Referring Provider Internal Medicine Rheumatology; Visit Provider Internal Medicine Rheumatology
DX: M06.00 Rheumatoid arthritis without rheumatoid factor, unspecified site (principal); M65.331 Trigger finger, right middle finger; K76.0 Fatty (change of) liver, not elsewhere classified; M18.11 Unilateral primary osteoarthritis of first carpometacarpal joint, right hand; M47.897 Other spondylosis, lumbosacral region; K21.00 Gastro-esophageal reflux disease with esophagitis, without bleeding; G47.33 Obstructive sleep apnea (adult) (pediatric); E11.9 Type 2 diabetes mellitus without complications; I10 Essential (primary) hypertension; E03.9 Hypothyroidism, unspecified; R51.9 Headache, unspecified; Z79.899 Other long term (current) drug therapy; Z86.73 Personal history of transient ischemic attack (TIA), and cerebral infarction without residual deficits
CPT/HCPCS: 36415; 80053; 85025; 86480

== ENCOUNTER → 2021-04-13 10:25 | Outpatient (CLI) | payer OTHER, SELFPAY ==
[2020-11-10 08:14] VITALS: BMI 43.0
--- NOTE | 2021-04-13 10:28 | EKG12_ITS ---
Test Reason : PREOP Blood Pressure : / mmHG Vent. Rate : 070 BPM Atrial Rate : 070 BPM P-R Int : 152 ms QRS Dur : 080 ms QT Int : 374 ms P-R-T Axes : 004 038 007 degrees QTc Int : 403 ms Normal sinus rhythm Normal ECG Confirmed by CARMELO LIMON, CHRISTIANO ([id number]), editorial specialist CARINA AVELAR ([id number]) on 04/14/2021 12:47:51 PM Referred By: Dang Brunner Confirmed By:TASHIA RHODES MD
[2021-04-13 11:09] LABS: Hematocrit 47.3 % (37-47); Hemoglobin 15.8 g/dL (12.0-15.0); Mean Corp Hgb Conc 33.4 g/dL (32-36); Mean Corpuscular Hgb 32.4 pg (27.0-32.0); Mean Corpuscular Volume 96.9 fL (81-99); Mean Platelet Vol. 11.5 fl (6.2-12.0); Platelet Count 209 K/mm3 (150-450); RBC Distribution Width CV 12.2 % (11.6-14.6); RBC Distribution Width SD 43.2 fl (35.1-43.9); Red Blood Count 4.88 M/mm3 (4.2-5.4); White Blood Count 8.4 K/mm3 (4.4-11.0)
[2021-04-13 11:36] LABS: Anion Gap 10 (5-15); BUN 11 mg/dL (7-18); BUN/Creat Ratio 11.6 RATIO (10-20); Calcium,Total 9.4 mg/dL (8.5-10.1); Chloride 101 mmol/L (98-107); Creatinine, Serum 0.95 mg/dL (0.55-1.02); EST Glomerular Filtration Rate 65 mL/min (>60); Est Glom Filt Rate - Afr Amer 79 mL/min (>60); Glucose 170 mg/dL (74-106); Potassium 3.8 mmol/L (3.5-5.1); Sodium Level 137 mmol/L (136-145)
[2021-04-13 11:43] LABS: Hemoglobin A1c 8.2 % (3.8-5.6)
== END ==
PROVIDERS: PCP Family Medicine; Referring Provider Physician Assistant; Visit Provider Physician Assistant
DX: Z11.59 Encounter for screening for other viral diseases (principal); Z01.818 Encounter for other preprocedural examination; Z01.810 Encounter for preprocedural cardiovascular examination
CPT/HCPCS: 36415; 80048; 83036; 85027; 87635; 93005; C9803; U0005; U0003

== ENCOUNTER → 2021-05-31 09:12 | Outpatient (CLI) | payer OTHER, SELFPAY ==
[2020-11-10 08:14] VITALS: BMI 43.0
[2021-05-31 09:29] LABS: Absolute Lymphocyte Count 2.99 X10^3/uL (0.83-4.51); Absolute Neutrophil Count 2.5 X10^3/uL (2.0-7.7); Basophil# 0.06 X10^3/uL; Basophil% 0.9 % (0-1); Eosinophil# 0.14 X10^3/uL; Eosinophils% 2.1 % (0-5); Hematocrit 44.2 % (37-47); Hemoglobin 14.5 g/dL (12.0-15.0); Lymphocyte # 2.99 X10^3/ul (0.83-4.51); Lymphocyte % 44.9 % (19-41); Mean Corp Hgb Conc 32.8 g/dL (32-36); Mean Corpuscular Hgb 32.6 pg (27.0-32.0); Mean Corpuscular Volume 99.3 fL (81-99); Mean Platelet Vol. 11.3 fl (6.2-12.0); Monocyte# 0.93 X10^3/uL; NRBC Flagged by Analyzer 0 % (0-5); Neutrophil # 2.51 X10^3/uL (2.7-7.7); Neutrophil % 37.6 % (47-70); Platelet Count 168 K/mm3 (150-450); RBC Distribution Width CV 12.8 % (11.6-14.6); RBC Distribution Width SD 46.7 fl (35.1-43.9); Red Blood Count 4.45 M/mm3 (4.2-5.4); White Blood Count 6.7 K/mm3 (4.4-11.0)
[2021-05-31 10:03] LABS: ALB/GLOB Ratio 0.9 RATIO (0.9-2.4); AST(SGOT) 88 U/L (15-37); Alanine Aminotransfer ALT/SGPT 112 U/L (13-56); Albumin, Serum 3.5 g/dL (3.2-5.0); Alkaline Phosphatase 96 U/L (45-117); Anion Gap 11 (5-15); BUN 11 mg/dL (7-18); BUN/Creat Ratio 15.5 RATIO (10-20); Calcium,Total 8.9 mg/dL (8.5-10.1); Chloride 106 mmol/L (98-107); Creatinine, Serum 0.71 mg/dL (0.55-1.02); EST Glomerular Filtration Rate 91 mL/min (>60); Est Glom Filt Rate - Afr Amer 110 mL/min (>60); Globulin 3.8 g/dL (2.2-4.2); Glucose 168 mg/dL (74-106); Protein, Total 7.3 g/dL (6.4-8.2); Sodium Level 138 mmol/L (136-145)
== END ==
PROVIDERS: PCP Family Medicine; Visit Provider Internal Medicine Rheumatology
DX: M06.09 Rheumatoid arthritis without rheumatoid factor, multiple sites (principal); M65.331 Trigger finger, right middle finger; K76.0 Fatty (change of) liver, not elsewhere classified; M18.11 Unilateral primary osteoarthritis of first carpometacarpal joint, right hand; M47.897 Other spondylosis, lumbosacral region; K21.00 Gastro-esophageal reflux disease with esophagitis, without bleeding; G47.33 Obstructive sleep apnea (adult) (pediatric); E11.9 Type 2 diabetes mellitus without complications; I10 Essential (primary) hypertension; E03.9 Hypothyroidism, unspecified; R51.9 Headache, unspecified; Z79.899 Other long term (current) drug therapy; Z86.73 Personal history of transient ischemic attack (TIA), and cerebral infarction without residual deficits
CPT/HCPCS: 36415; 80053; 85025

== ENCOUNTER → 2021-07-19 14:53 | Outpatient (CLI) | payer OTHER, SELFPAY ==
--- NOTE | 2021-07-19 15:02 | BI_ITS ---
MAMMOGRAPHY - BILATERAL SCREENING 3-D TOMOSYNTHESIS REASON FOR EXAM: Female, 55 years old. SCREENING PERTINENT HISTORY: No significant family history. TECHNIQUE: 2-D mammograms and 3-D Tomosynthesis of the breast (s) were performed. CAD was performed. COMPARISON: 01/01/2019 FINDINGS: The breast composition is heterogeneously dense that can obscure small breast masses. Scattered benign calcifications are seen. No dense spiculated masses or suspicious microcalcifications are identified. No architectural distortion is identified. There is no skin thickening or retraction. There has been no significant change since the prior study. BI/SCRN MAMM (CAD)W/ROCHELLE BILAT IMPRESSION: No mammographic signs of malignancy. Routine yearly mammograms recommended. ASSESSMENT CATEGORY: BIRADS Category 1: Negative. A letter regarding these results will be sent to the patient by the facility within 30 days. FOLLOW UP RECOMMENDATION: Yearly follow up mammogram recommended. (A) Approximately 10% of breast cancers are not detected by mammography. A normal mammogram should not delay biopsy of a clinically suspicious abnormality. Electronically Signed: Kota Daniel MD at 11:12 EDT Tel , Service support ,
== END ==
PROVIDERS: PCP Family Medicine
DX: Z12.31 Encounter for screening mammogram for malignant neoplasm of breast (principal)
CPT/HCPCS: 77063; 77067

== ENCOUNTER → 2021-09-22 10:56 | Outpatient (CLI) | payer OTHER, SELFPAY ==
--- NOTE | 2021-09-22 11:00 | RAD_ITS ---
INDICATION: DYSPNEA EXAMINATION/TECHNIQUE: X-RAY - XR Chest 2 Views COMPARISON: 06/25/2018 chest x-ray FINDINGS: LINES/DEVICES: None. LUNGS: Symmetric normal lung volumes. No airspace opacity or abnormal interstitial pattern. No nodule or mass. No pleural effusion or pneumothorax. MEDIASTINUM AND CARDIOVASCULAR STRUCTURES: Normal size and contour of the cardiomediastinal silhouette. No evidence of pulmonary vascular congestion. BONES AND SOFT TISSUES: No abnormality within limits of the exam. RAD/Chest PA and Lateral IMPRESSION: 1. No radiographic evidence of acute cardiopulmonary disease. Electronically Signed: Boris Cronin DO at 20:34 EST Tel , Service support ,
[2021-09-22 12:48] LABS: Hemoglobin A1c 7.5 % (3.8-5.6)
[2021-09-22 12:57] LABS: AST(SGOT) 131 U/L (15-37); Alanine Aminotransfer ALT/SGPT 159 U/L (13-56); Anion Gap 10 (5-15); BUN 11 mg/dL (7-18); BUN/Creat Ratio 12.3 RATIO (10-20); Calcium,Total 9.3 mg/dL (8.5-10.1); Chloride 104 mmol/L (98-107); Creatinine, Serum 0.89 mg/dL (0.55-1.02); EST Glomerular Filtration Rate 70 mL/min (>60); Est Glom Filt Rate - Afr Amer 84 mL/min (>60); Glucose 120 mg/dL (74-106); Potassium 3.5 mmol/L (3.5-5.1); Sodium Level 140 mmol/L (136-145); Thyroid Stim Hormone (TSH) 1.98 uIU/mL (0.358-3.74)
== END ==
PROVIDERS: Internal Medicine Endocrinology, Diabetes & Metabolism; PCP Family Medicine; Referring Provider Internal Medicine Pulmonary Disease; Visit Provider Internal Medicine Pulmonary Disease
DX: E11.65 Type 2 diabetes mellitus with hyperglycemia (principal); E03.8 Other specified hypothyroidism; I10 Essential (primary) hypertension; R06.00 Dyspnea, unspecified
CPT/HCPCS: 36415; 71046; 80048; 83036; 84443; 84450; 84460

== ENCOUNTER → 2021-09-29 10:24 | Outpatient (CLI) | payer OTHER, SELFPAY ==
--- NOTE | 2021-09-29 10:31 | US_ITS ---
STUDY: ABDOMINAL ULTRASOUND REASON FOR EXAM: Female, 55 years old. Abnormal liver enzymes. TECHNIQUE: Transabdominal ultrasound was performed with real-time and static hernandez scale imaging. TECHNICAL QUALITY: Adequate. COMPARISON: None. FINDINGS: Liver: The liver is enlarged and measures 20.7 cm. There is increased echogenicity consistent with fatty infiltration. The bile ducts are within normal limits. There is hepatic color flow. The direction of portal flow is hepatopetal. There is an 8 mm x 7 mm x 5 mm hypoechoic anechoic nodule in the left lobe suggestive of a possible small cysts. Portal vein measurement: Gallbladder: Normal distended gallbladder. The gallbladder wall measures 1.4 mm. There is a negative sonographic Kang''s sign. There is no pericholecystic fluid. There are no gallstones. Common Bile Duct (C.B.D.): The common bile duct measures 5 mm. Pancreas: Normal size of the head, body and tail of the pancreas. There is increased echogenicity of the pancreas. There is no demonstrated pancreatic mass or cyst. Spleen: Normal size of the spleen. The spleen measures 10.9 cm x 5.5 cm x 5.3 cm. Right Kidney: Normal size of the right kidney. The right kidney measures 12 cm x 5.9 cm x 3.9 cm. Normal renal cortex. The right cortex measures 1.3 cm. There is no demonstrated renal mass or cyst. There is no right hydronephrosis. Left Kidney: Normal size of the left kidney. The left kidney measures 12.3 cm x 5.2 cm x 5.9 cm. Normal renal cortex. The left cortex measures 1.4 cm. 2 cysts are seen. The larger cyst measures 2.7 cm x 2.1 cm x 1.6 cm. This is in the lower pole. There is no left hydronephrosis. Aorta: Unremarkable I.V.C.: The IVC is patent. There is no ascites. US/Abdomen Complete IMPRESSION: Hepatomegaly and diffuse fatty infiltration of the liver. 8 mm x 7 mm x 5 mm hypoechoic echoic nodule in the left lobe of liver suggestive of a small cyst. Left renal cysts. Electronically Signed: Primitivo Pérez MD at 15:27 EST , Service support ,
[2021-09-29 12:19] LABS: Absolute Lymphocyte Count 2.02 X10^3/uL (0.83-4.51); Absolute Neutrophil Count 2.7 X10^3/uL (2.0-7.7); Basophil# 0.04 X10^3/uL; Basophil% 0.7 % (0-1); Eosinophil# 0.06 X10^3/uL; Eosinophils% 1.1 % (0-5); Lymphocyte # 2.02 X10^3/ul (0.83-4.51); Lymphocyte % 36.3 % (19-41); Mean Corp Hgb Conc 32.6 g/dL (32-36); Mean Corpuscular Hgb 32.3 pg (27.0-32.0); Mean Corpuscular Volume 99.1 fL (81-99); Mean Platelet Vol. 11.6 fl (6.2-12.0); Monocyte# 0.67 X10^3/uL; Monocyte% 12.1 % (0-10); NRBC Flagged by Analyzer 0 % (0-5); Neutrophil # 2.73 X10^3/uL (2.7-7.7); Neutrophil % 49.1 % (47-70); Platelet Count 164 K/mm3 (150-450); RBC Distribution Width CV 13.2 % (11.6-14.6); RBC Distribution Width SD 47.8 fl (35.1-43.9); Red Blood Count 4.64 M/mm3 (4.2-5.4); White Blood Count 5.6 K/mm3 (4.4-11.0)
== END ==
PROVIDERS: PCP Family Medicine; Referring Provider Internal Medicine Endocrinology, Diabetes & Metabolism; Visit Provider Internal Medicine Endocrinology, Diabetes & Metabolism
DX: K76.0 Fatty (change of) liver, not elsewhere classified (principal); K76.89 Other specified diseases of liver; D64.9 Anemia, unspecified; R74.8 Abnormal levels of other serum enzymes
CPT/HCPCS: 36415; 76700; 85025

== ENCOUNTER 2021-11-24 16:48 | Outpatient (CLI) | payer OTHER, SELFPAY ==
[2021-11-24 17:20] LABS: Absolute Lymphocyte Count 4.39 X10^3/uL (0.83-4.51); Absolute Neutrophil Count 5.1 X10^3/uL (2.0-7.7); Basophil# 0.06 X10^3/uL; Basophil% 0.6 % (0-1); Eosinophil# 0.13 X10^3/uL; Eosinophils% 1.2 % (0-5); Hematocrit 47.8 % (37-47); Lymphocyte # 4.39 X10^3/ul (0.83-4.51); Lymphocyte % 40.6 % (19-41); Mean Corp Hgb Conc 33.5 g/dL (32-36); Mean Corpuscular Hgb 33.2 pg (27.0-32.0); Mean Corpuscular Volume 99.2 fL (81-99); Mean Platelet Vol. 11.3 fl (6.2-12.0); Monocyte# 1.07 X10^3/uL; Monocyte% 9.9 % (0-10); NRBC Flagged by Analyzer 0 % (0-5); Neutrophil # 5.07 X10^3/uL (2.7-7.7); Platelet Count 185 K/mm3 (150-450); RBC Distribution Width CV 13.1 % (11.6-14.6); RBC Distribution Width SD 47.4 fl (35.1-43.9); Red Blood Count 4.82 M/mm3 (4.2-5.4); White Blood Count 10.8 K/mm3 (4.4-11.0)
[2021-11-24 18:06] LABS: ALB/GLOB Ratio 0.9 RATIO (0.9-2.4); AST(SGOT) 87 U/L (15-37); Alanine Aminotransfer ALT/SGPT 117 U/L (13-56); Albumin, Serum 3.6 g/dL (3.2-5.0); Alkaline Phosphatase 112 U/L (45-117); Anion Gap 9 (5-15); BUN 14 mg/dL (7-18); BUN/Creat Ratio 14.5 RATIO (10-20); Calcium,Total 9.1 mg/dL (8.5-10.1); Chloride 103 mmol/L (98-107); Creatinine, Serum 0.97 mg/dL (0.55-1.02); EST Glomerular Filtration Rate 63 mL/min (>60); Est Glom Filt Rate - Afr Amer 77 mL/min (>60); Glucose 127 mg/dL (74-106); Potassium 3.8 mmol/L (3.5-5.1); Protein, Total 7.6 g/dL (6.4-8.2); Sodium Level 139 mmol/L (136-145)
== END 2021-11-24 23:59 | disposition home or self-care (01) ==
LOC: LAB 16:53
PROVIDERS: PCP Family Medicine; Visit Provider Internal Medicine Rheumatology
DX: M06.09 Rheumatoid arthritis without rheumatoid factor, multiple sites (principal); I63.81 Other cerebral infarction due to occlusion or stenosis of small artery; E11.9 Type 2 diabetes mellitus without complications; M65.341 Trigger finger, right ring finger; K76.0 Fatty (change of) liver, not elsewhere classified; M18.11 Unilateral primary osteoarthritis of first carpometacarpal joint, right hand; M47.897 Other spondylosis, lumbosacral region; K21.00 Gastro-esophageal reflux disease with esophagitis, without bleeding; G47.33 Obstructive sleep apnea (adult) (pediatric); I10 Essential (primary) hypertension; E03.9 Hypothyroidism, unspecified; R51.9 Headache, unspecified; Z79.899 Other long term (current) drug therapy
CPT/HCPCS: 36415; 80053; 85025

== ENCOUNTER → 2022-02-15 | Outpatient (CLI) | payer OTHER, SELFPAY ==
--- NOTE | 2022-02-15 09:02 | RAD_ITS ---
INDICATION: Dyspnea EXAMINATION/TECHNIQUE: X-RAY - XR Chest 2 Views COMPARISON: 09/22/2021. FINDINGS: The lungs are clear. The cardiomediastinal silhouette is unremarkable. No pleural effusion or pneumothorax. Degenerative changes of the thoracic spine. RAD/Chest PA and Lateral IMPRESSION: No acute radiographic abnormalities. Electronically Signed: Garrick Garsia MD at 17:26 EDT ,
== END | disposition home or self-care (01) ==
LOC: MTRAD 09:01
PROVIDERS: PCP Family Medicine; Referring Provider Internal Medicine Pulmonary Disease; Visit Provider Internal Medicine Pulmonary Disease
DX: R06.00 Dyspnea, unspecified (principal)
CPT/HCPCS: 71046

== ENCOUNTER → 2022-07-04 | Outpatient (CLI) | payer OTHER, SELFPAY ==
[2022-07-04 10:36] LABS: Absolute Lymphocyte Count 2.64 X10^3/uL (0.83-4.51); Absolute Neutrophil Count 3.3 X10^3/uL (2.0-7.7); Basophil# 0.04 X10^3/uL; Basophil% 0.6 % (0-1); Eosinophil# 0.13 X10^3/uL; Eosinophils% 1.9 % (0-5); Hematocrit 44.8 % (37-47); Hemoglobin 14.9 g/dL (12.0-15.0); Lymphocyte # 2.64 X10^3/ul (0.83-4.51); Lymphocyte % 37.7 % (19-41); Mean Corp Hgb Conc 33.3 g/dL (32-36); Mean Corpuscular Hgb 33.3 pg (27.0-32.0); Mean Corpuscular Volume 100.2 fL (81-99); Mean Platelet Vol. 11.4 fl (6.2-12.0); Monocyte# 0.85 X10^3/uL; Monocyte% 12.1 % (0-10); NRBC Flagged by Analyzer 0 % (0-5); Neutrophil # 3.31 X10^3/uL (2.7-7.7); Neutrophil % 47.1 % (47-70); Platelet Count 202 K/mm3 (150-450); RBC Distribution Width CV 13.7 % (11.6-14.6); Red Blood Count 4.47 M/mm3 (4.2-5.4)
[2022-07-04 11:01] LABS: ALB/GLOB Ratio 0.9 RATIO (0.9-2.4); AST(SGOT) 153 U/L (15-37); Alanine Aminotransfer ALT/SGPT 114 U/L (13-56); Albumin, Serum 3.5 g/dL (3.2-5.0); Alkaline Phosphatase 97 U/L (45-117); Anion Gap 13 (5-15); BUN 8 mg/dL (7-18); BUN/Creat Ratio 9.2 RATIO (10-20); Calcium,Total 9.3 mg/dL (8.5-10.1); Chloride 103 mmol/L (98-107); Creatinine, Serum 0.87 mg/dL (0.55-1.02); EST Glomerular Filtration Rate 71 mL/min (>60); Est Glom Filt Rate - Afr Amer 86 mL/min (>60); Globulin 3.7 g/dL (2.2-4.2); Glucose 164 mg/dL (74-106); Potassium 3.5 mmol/L (3.5-5.1); Protein, Total 7.2 g/dL (6.4-8.2); Sodium Level 140 mmol/L (136-145)
== END | disposition home or self-care (01) ==
LOC: MTLAB 09:03
PROVIDERS: PCP Family Medicine; Referring Provider Internal Medicine Rheumatology; Visit Provider Internal Medicine Rheumatology
DX: M06.09 Rheumatoid arthritis without rheumatoid factor, multiple sites (principal); E11.9 Type 2 diabetes mellitus without complications; M65.341 Trigger finger, right ring finger; K76.0 Fatty (change of) liver, not elsewhere classified; M18.11 Unilateral primary osteoarthritis of first carpometacarpal joint, right hand; M47.897 Other spondylosis, lumbosacral region; K21.00 Gastro-esophageal reflux disease with esophagitis, without bleeding; G47.33 Obstructive sleep apnea (adult) (pediatric); I10 Essential (primary) hypertension; E03.9 Hypothyroidism, unspecified; R51.9 Headache, unspecified; Z79.899 Other long term (current) drug therapy; Z86.73 Personal history of transient ischemic attack (TIA), and cerebral infarction without residual deficits
CPT/HCPCS: 36415; 80053; 85025

== ENCOUNTER → 2023-02-04 | Outpatient (CLI) | payer OTHER, SELFPAY ==
[2023-02-04 11:04] LABS: Absolute Lymphocyte Count 2.67 X10^3/uL (0.83-4.51); Absolute Neutrophil Count 3.2 X10^3/uL (2.0-7.7); Basophil# 0.06 X10^3/uL; Basophil% 0.9 % (0-1); Eosinophils% 1.5 % (0-5); Hematocrit 43.5 % (37-47); Hemoglobin 14.2 g/dL (12.0-15.0); Lymphocyte # 2.67 X10^3/ul (0.83-4.51); Lymphocyte % 39.8 % (19-41); Mean Corp Hgb Conc 32.6 g/dL (32-36); Mean Corpuscular Hgb 32.9 pg (27.0-32.0); Mean Corpuscular Volume 100.7 fL (81-99); Monocyte# 0.63 X10^3/uL; Monocyte% 9.4 % (0-10); NRBC Flagged by Analyzer 0 % (0-5); Neutrophil # 3.23 X10^3/uL (2.7-7.7); Neutrophil % 48.1 % (47-70); Platelet Count 188 K/mm3 (150-450); RBC Distribution Width CV 13.5 % (11.6-14.6); RBC Distribution Width SD 49.6 fl (35.1-43.9); Red Blood Count 4.32 M/mm3 (4.2-5.4); White Blood Count 6.7 K/mm3 (4.4-11.0)
[2023-02-04 11:46] LABS: ALB/GLOB Ratio 0.9 RATIO (0.9-2.4); AST(SGOT) 89 U/L (15-37); Alanine Aminotransfer ALT/SGPT 77 U/L (13-56); Albumin, Serum 3.5 g/dL (3.2-5.0); Alkaline Phosphatase 98 U/L (45-117); Anion Gap 11 (5-15); BUN 13 mg/dL (7-18); BUN/Creat Ratio 16.3 RATIO (10-20); Calcium,Total 9.3 mg/dL (8.5-10.1); Chloride 103 mmol/L (98-107); EST Glomerular Filtration Rate 79 mL/min (>60); Est Glom Filt Rate - Afr Amer 95 mL/min (>60); Globulin 3.8 g/dL (2.2-4.2); Glucose 118 mg/dL (74-106); Protein, Total 7.3 g/dL (6.4-8.2); Sodium Level 136 mmol/L (136-145)
== END | disposition home or self-care (01) ==
LOC: LAB 10:27
PROVIDERS: PCP Family Medicine; Referring Provider Internal Medicine Rheumatology; Visit Provider Internal Medicine Rheumatology
DX: M06.09 Rheumatoid arthritis without rheumatoid factor, multiple sites (principal); E11.9 Type 2 diabetes mellitus without complications; M65.341 Trigger finger, right ring finger; K76.0 Fatty (change of) liver, not elsewhere classified; M25.562 Pain in left knee; M47.897 Other spondylosis, lumbosacral region; K21.00 Gastro-esophageal reflux disease with esophagitis, without bleeding; G47.33 Obstructive sleep apnea (adult) (pediatric); I10 Essential (primary) hypertension; E03.9 Hypothyroidism, unspecified; D05.12 Intraductal carcinoma in situ of left breast; R51.9 Headache, unspecified; Z90.12 Acquired absence of left breast and nipple; Z79.899 Other long term (current) drug therapy; Z86.73 Personal history of transient ischemic attack (TIA), and cerebral infarction without residual deficits
CPT/HCPCS: 36415; 80053; 85025

== ENCOUNTER → 2023-02-12 | Outpatient (CLI) | payer OTHER, SELFPAY ==
--- NOTE | 2023-02-12 15:37 | VDLE_ITS ---
Reason For Study: Swelling RIGHT LEFT CFV is compressible, spontaneous, phasic, GSV is normal. competent and demonstrates normal CFV is compressible, spontaneous, phasic, augmentation. competent, and demonstrates normal Procedure augmentation. This is a venous duplex using B-mode, color FV is compressible, spontaneous, phasic, flow and spectral Doppler. competent and demonstrates normal Exam performed in department. augmentation. The exam was diagnostic. POP V is compressible, spontaneous, phasic, A preliminary report was called and/or faxed competent and demonstrates normal to Dr. Weber office. augmentation. T/P Trunk is compressible. PTV is compressible. LT PerV is compressible. Hypoechoic non-vascularized intramuscular structure noted from prox to mid calf. VL/Venous Duplex US, Unilateral Interpretation Summary There is no evidence of left lower extremity deep vein thrombosis. Left great s aphenous vein appears patent and compressible segmentally. Thin hypoechoic nonvascular intramuscular structure noted from the left proximal mid calf of undetermined etiology. This does not appear as a typical Roy's cyst though it cannot be completely excluded either. Clinical correlation would be a ppropriate. Normal flow patterns right common femoral vein Ordering Physician: Stephon Wang Referring Physician: Stephon Wang Performed By: Shahid Little RVT
== END | disposition home or self-care (01) ==
LOC: CVS 15:34
PROVIDERS: PCP Family Medicine; Referring Provider Family Medicine; Visit Provider Family Medicine
DX: M79.89 Other specified soft tissue disorders (principal); M79.605 Pain in left leg; Z86.718 Personal history of other venous thrombosis and embolism
CPT/HCPCS: 93971

== ENCOUNTER → 2023-02-15 | Outpatient (CLI) | payer OTHER, SELFPAY ==
--- NOTE | 2023-02-15 08:54 | RAD_ITS ---
INDICATION: left calf and knee pain. Mass seen on popiteal area per doppler. EXAMINATION/TECHNIQUE: X-RAY - LEFT XR Knee 1 or 2 Views 2 VIEWS COMPARISON: None FINDINGS: SOFT TISSUES: No soft tissue swelling or gas. No radiopaque foreign body. BONES/JOINTS: No acute fracture or subluxation. ACL repair appears normal. Mild medial, lateral, and patellofemoral joint space narrowing. No sclerotic or destructive changes observed. RAD/Knee 1 or 2 Views IMPRESSION: Mild tricompartmental DJD. Electronically Signed: Dequan Carranza MD at 17:18 EDT ,
== END | disposition home or self-care (01) ==
LOC: RAD 08:54
PROVIDERS: PCP Family Medicine; Referring Provider Family Medicine; Visit Provider Family Medicine
DX: M79.662 Pain in left lower leg (principal); M25.562 Pain in left knee
CPT/HCPCS: 73560

== ENCOUNTER → 2023-03-13 | Outpatient (CLI) | payer OTHER, SELFPAY ==
--- NOTE | 2023-03-13 07:45 | MRI_ITS ---
EXAM: MR LEFT LOWER EXTREMITY WITHOUT INTRAVENOUS CONTRAST, LEG CLINICAL INDICATION: venous doppler showed a left calf/popliteal mass. TECHNIQUE: Multiplanar and multisequence MR images of the left leg from just above the knee joint to the ankle joint. COMPARISON: No relevant prior studies available. FINDINGS: MUSCLES: Unremarkable. No edema or myositis. FLUID: Small irregular mildly heterogeneous Roy''s cyst measuring 1.5 x 1.1 x 3.3 cm inferiorly in the right popliteal fossa between the semimembranosus and medial gastrocnemius muscles. Fluid is seen tracking inferiorly between the soleus and medial gastrocnemius muscles. BONES/JOINTS: Status post anterior cruciate ligament repair. No bony abnormality. OTHER SOFT TISSUES: See above. MRI/Lower Ext/No Jt/w/o IMPRESSION: 1. Ruptured Roy''s cyst measuring 1.5 x 1.1 x 3.3 cm with fluid tracking inferiorly between the gastrocnemius and soleus muscles. 2. Status post anterior cruciate ligament repair. Electronically Signed: Boris Valencia MD at 0:51 EDT ,
== END | disposition home or self-care (01) ==
PROVIDERS: PCP Family Medicine; Referring Provider Family Medicine; Visit Provider Family Medicine
DX: M79.609 Pain in unspecified limb (principal)
CPT/HCPCS: 73718

== ENCOUNTER → 2023-04-30 | Outpatient (CLI) | payer OTHER, SELFPAY ==
[2023-04-30 10:03] LABS: Absolute Lymphocyte Count 2.11 X10^3/uL (0.83-4.51); Absolute Neutrophil Count 4.1 X10^3/uL (2.0-7.7); Basophil# 0.05 X10^3/uL; Basophil% 0.7 % (0-1); Eosinophil# 0.11 X10^3/uL; Eosinophils% 1.5 % (0-5); Hematocrit 45.1 % (37-47); Hemoglobin 14.7 g/dL (12.0-15.0); Lymphocyte # 2.11 X10^3/ul (0.83-4.51); Lymphocyte % 29.6 % (19-41); Mean Corp Hgb Conc 32.6 g/dL (32-36); Mean Corpuscular Hgb 32.9 pg (27.0-32.0); Mean Corpuscular Volume 100.9 fL (81-99); Mean Platelet Vol. 12.1 fl (6.2-12.0); Monocyte# 0.71 X10^3/uL; Monocyte% 9.9 % (0-10); NRBC Flagged by Analyzer 0 % (0-5); Neutrophil # 4.14 X10^3/uL (2.7-7.7); Platelet Count 196 K/mm3 (150-450); RBC Distribution Width CV 12.9 % (11.6-14.6); RBC Distribution Width SD 47.8 fl (35.1-43.9); Red Blood Count 4.47 M/mm3 (4.2-5.4); White Blood Count 7.1 K/mm3 (4.4-11.0)
[2023-04-30 10:25] LABS: Microalbumin,Random Urine 8.2 mg/L (NO RANGE EST.); Microalbumin:Creatinine Ratio 10.8 mg/g CRE (<30 mg/g CRE)
[2023-04-30 10:35] LABS: ALB/GLOB Ratio 0.8 RATIO (0.9-2.4); AST(SGOT) 69 U/L (15-37); Alanine Aminotransfer ALT/SGPT 69 U/L (13-56); Albumin, Serum 3.4 g/dL (3.2-5.0); Alkaline Phosphatase 114 U/L (45-117); Anion Gap 6 (5-15); BUN 9 mg/dL (7-18); BUN/Creat Ratio 10.5 RATIO (10-20); Calcium,Total 9.5 mg/dL (8.5-10.1); Chloride 105 mmol/L (98-107); Creatinine, Serum 0.86 mg/dL (0.55-1.02); EST Glomerular Filtration Rate 73 mL/min (>60); Est Glom Filt Rate - Afr Amer 88 mL/min (>60); Globulin 4.2 g/dL (2.2-4.2); Glucose 260 mg/dL (74-106); Potassium 3.9 mmol/L (3.5-5.1); Protein, Total 7.6 g/dL (6.4-8.2); Sodium Level 138 mmol/L (136-145)
[2023-04-30 10:36] LABS: Hemoglobin A1c 7.7 % (3.8-5.6)
[2023-04-30 10:38] LABS: Cholesterol 228 mg/dL (200); High Density Lipoprotein 45 mg/dL; Triglycerides 263 mg/dL; Very Low Density Lipoprotein 53 mg/dL (5-40)
== END | disposition home or self-care (01) ==
LOC: LAB 08:53
PROVIDERS: PCP Family Medicine; Referring Provider Internal Medicine Endocrinology, Diabetes & Metabolism; Visit Provider Internal Medicine Endocrinology, Diabetes & Metabolism
DX: E11.42 Type 2 diabetes mellitus with diabetic polyneuropathy (principal); E78.2 Mixed hyperlipidemia; I10 Essential (primary) hypertension
CPT/HCPCS: 36415; 80053; 80061; 82043; 82570; 83036; 85025

== ENCOUNTER → 2023-05-14 | Outpatient (CLI) | payer OTHER, SELFPAY ==
[2023-05-14 10:00] LABS: Absolute Lymphocyte Count 3.37 X10^3/uL (0.83-4.51); Absolute Neutrophil Count 3.1 X10^3/uL (2.0-7.7); Basophil# 0.05 X10^3/uL; Basophil% 0.7 % (0-1); Eosinophil# 0.04 X10^3/uL; Eosinophils% 0.6 % (0-5); Hematocrit 43.8 % (37-47); Hemoglobin 14.6 g/dL (12.0-15.0); Lymphocyte # 3.37 X10^3/ul (0.83-4.51); Lymphocyte % 47.1 % (19-41); Mean Corp Hgb Conc 33.3 g/dL (32-36); Mean Corpuscular Volume 99.1 fL (81-99); Mean Platelet Vol. 12.3 fl (6.2-12.0); Monocyte# 0.59 X10^3/uL; Monocyte% 8.3 % (0-10); NRBC Flagged by Analyzer 0 % (0-5); Neutrophil # 3.06 X10^3/uL (2.7-7.7); Neutrophil % 42.7 % (47-70); Platelet Count 182 K/mm3 (150-450); RBC Distribution Width CV 12.5 % (11.6-14.6); RBC Distribution Width SD 45.1 fl (35.1-43.9); Red Blood Count 4.42 M/mm3 (4.2-5.4); White Blood Count 7.2 K/mm3 (4.4-11.0)
[2023-05-14 11:01] LABS: ALB/GLOB Ratio 0.9 RATIO (0.9-2.4); AST(SGOT) 111 U/L (15-37); Alanine Aminotransfer ALT/SGPT 92 U/L (13-56); Albumin, Serum 3.4 g/dL (3.2-5.0); Alkaline Phosphatase 109 U/L (45-117); Anion Gap 9 (5-15); BUN 20 mg/dL (7-18); BUN/Creat Ratio 18.9 RATIO (10-20); Chloride 104 mmol/L (98-107); Creatinine, Serum 1.06 mg/dL (0.55-1.02); EST Glomerular Filtration Rate 57 mL/min (>60); Est Glom Filt Rate - Afr Amer 69 mL/min (>60); Globulin 3.9 g/dL (2.2-4.2); Glucose 350 mg/dL (74-106); Potassium 3.3 mmol/L (3.5-5.1); Protein, Total 7.3 g/dL (6.4-8.2); Sodium Level 137 mmol/L (136-145)
== END | disposition home or self-care (01) ==
LOC: MTLAB 08:34
PROVIDERS: PCP Family Medicine; Referring Provider Internal Medicine Rheumatology; Visit Provider Internal Medicine Rheumatology
DX: M06.09 Rheumatoid arthritis without rheumatoid factor, multiple sites (principal); Z79.899 Other long term (current) drug therapy
CPT/HCPCS: 36415; 80053; 85025

== ENCOUNTER → 2023-07-24 | Outpatient (CLI) | payer OTHER, SELFPAY ==
[2023-07-24 10:54] LABS: PTHIN 41.5 pg/mL (18.4-80.1)
[2023-07-24 10:56] LABS: Vitamin D,25 Hydroxy 26.2 ng/mL
[2023-07-24 11:02] LABS: Hemoglobin A1c 9.1 % (3.8-5.6)
[2023-07-24 11:14] LABS: AST(SGOT) 103 U/L (15-37); Alanine Aminotransfer ALT/SGPT 77 U/L (13-56); Anion Gap 11 (5-15); BUN 10 mg/dL (7-18); BUN/Creat Ratio 11.2 RATIO (10-20); Calcium,Total 9.3 mg/dL (8.5-10.1); Chloride 106 mmol/L (98-107); Cholesterol 292 mg/dL (200); Creatinine, Serum 0.89 mg/dL (0.55-1.02); EST Glomerular Filtration Rate 69 mL/min (>60); Est Glom Filt Rate - Afr Amer 84 mL/min (>60); Glucose 108 mg/dL (74-106); High Density Lipoprotein 55 mg/dL; Potassium 3.6 mmol/L (3.5-5.1); Sodium Level 140 mmol/L (136-145); Thyroid Stim Hormone (TSH) 1.24 uIU/mL (0.358-3.74); Triglycerides 246 mg/dL; Very Low Density Lipoprotein 49 mg/dL (5-40)
== END | disposition home or self-care (01) ==
PROVIDERS: PCP Family Medicine; Visit Provider Internal Medicine Endocrinology, Diabetes & Metabolism
DX: Z79.4 Long term (current) use of insulin (principal); E11.42 Type 2 diabetes mellitus with diabetic polyneuropathy; E21.5 Disorder of parathyroid gland, unspecified; E03.8 Other specified hypothyroidism; E78.2 Mixed hyperlipidemia; E55.9 Vitamin D deficiency, unspecified
CPT/HCPCS: 36415; 80048; 80061; 82306; 83036; 83970; 84443; 84450; 84460

== ENCOUNTER 2024-01-07 13:30 | Outpatient (RCR) | payer OTHER, SELFPAY ==
--- NOTE | 2023-12-12 11:35 | HP.OTEVAL_ITS ---
Patient's Visit Information Visit Information Visit Information: PRABHAKAR ESPINAL is a 58 year old F, referred to Occupational Therapy by Dr. Stephon Wang MD, with a diagnosis of Trigger finger x10. Date of Evaluation: 12/05/23 Occupational Therapist: Ayla Buenrostro Subjective Subjective: Prabhakar is a 58 year old female referred to outpatient occupational therapy services by Dr. Stephon Wang for trigger finger x8 (excludes thumbs at this time). Pt reports burning in hands starting in July 2023 but still able to function, with symptoms of trigger finger starting in August 2023. Also retired in August 2023 and plans to take care of mother at assisted living. 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 Goal:: Pt to demo improved ROM for MPs by 5 degrees by end of 6 weeks. Goal:: Pt to demo MP ext/flex with report of pain of 3/10 or less by end of 6 weeks. Pt to demo PIP ext/flex with report of pain of 3/10 or less by end of 6 weeks. Pt to demo DIP ext/flex with report of pain of 3/10 or less by end of 6 weeks. Goal:: Pt to demo understanding of joint protection methods with daily activities with reported consistency by end of 3 weeks. Goal:: Pt to demo understanding of bracing schedule for decrease in pain and inflammation with reported consistency by discharge. Rehabilitation General Assessment: Pt arriving to outpatient occupational therapy services to address trigger finger in bilat digits 2-5. Based on ROM, strenght and pt report of pain indicated pt would benefit from outpatient occupational therapy service 1/wk for 6 wks with use of modalities, education of protective strategies, stretching, and orthosis for inflammation reduction and participation in preferred activities Rehabilitation Potential: Good Anticipated Interventions Anticipated Interventions: A/AAROM/PROM, Massage, Modalities, Orthoses, Joint Protection/Energy Conservation, ADL Training, Education re assistive Equipment, Education re Diagnosis, Education re Self Massage Techniques, Education re Correct Donning Tech,Care&Wearing Sched Comp Garments and Home Program Visit Plan Frequency: 1x/Week Duration: 6 Weeks TEXT: Thank you for the opportunity to evaluate your patient. For Medicare and Medicare HMO plans, please review the plan of care and approve it. It will need to be FAXED BACK to us at [phone] for Medicare purposes. Please let me know if there are questions or concerns regarding this plan of care. Physician Signature: Date:
--- NOTE | 2024-05-08 09:58 | HP.OT.NRP ---
Patient Information Patient Information: PRABHAKAR ESPINAL was seen in my office for initial evaluation on 12/05/23. The following Plan of Care was established for this patient: POC Established Initial Frequency: 1x/Week Initial Duration: 6 Weeks Plan: Continue POC: 1x week for 6 weeks Anticipated Interventions Anticipated Interventions: A/AAROM/PROM, Massage, Modalities, Orthoses, Joint Protection/Energy Conservation, ADL Training, Education re assistive Equipment, Education re Diagnosis, Education re Self Massage Techniques, Education re Correct Donning Tech,Care&Wearing Sched Comp Garments and Home Program Last Seen Last Seen: This patient was last seen in our office 01/07/24. Pertinent comments regarding their Occupational therapy will appear below: pt was seen for 6 OT sessions. pt was last seen on 01/07/24 and at this time no further apts have been scheduled. Due to time lapse in services pt is d/c. At this point I will be discontinuing this patient from occupational therapy. I would be happy to see this patient again in the future if found appropriate by the physician. Thank you! Mare Simpson, OTR/L, CHT
== END 2024-01-07 19:00 | disposition home or self-care (01) ==
LOC: OT 13:30
PROVIDERS: PCP Family Medicine; Referring Provider Family Medicine; Visit Provider Family Medicine
DX: M65.30 Trigger finger, unspecified finger (principal)
CPT/HCPCS: 97035; 97140; 97165; 97166; 97530

== ENCOUNTER → 2024-07-06 | Outpatient (CLI) | payer OTHER, SELFPAY ==
[2024-07-06 15:21] LABS: International Normalized Ratio 1.1; Prothrombin Time (Protime)PT. 14.4 SECONDS (11.7-14.9)
[2024-07-06 15:39] LABS: Absolute Lymphocyte Count 2.32 X10^3/uL (0.83-4.51); Absolute Neutrophil Count 3.8 X10^3/uL (2.0-7.7); Basophil# 0.07 X10^3/uL; Eosinophil# 0.15 X10^3/uL; Eosinophils% 2.1 % (0-5); Hematocrit 45.6 % (37-47); Hemoglobin 15.2 g/dL (12.0-15.0); Lymphocyte # 2.32 X10^3/ul (0.83-4.51); Mean Corp Hgb Conc 33.3 g/dL (32-36); Mean Corpuscular Hgb 31.8 pg (27.0-32.0); Mean Corpuscular Volume 95.4 fL (81-99); Mean Platelet Vol. 11.7 fl (6.2-12.0); Monocyte# 0.67 X10^3/uL; Monocyte% 9.5 % (0-10); NRBC Flagged by Analyzer 0 % (0-5); Neutrophil # 3.79 X10^3/uL (2.7-7.7); Neutrophil % 54.1 % (47-70); Platelet Count 182 K/mm3 (150-450); RBC Distribution Width CV 13.2 % (11.6-14.6); RBC Distribution Width SD 45.8 fl (35.1-43.9); Red Blood Count 4.78 M/mm3 (4.2-5.4)
[2024-07-06 15:51] LABS: ALB/GLOB Ratio 0.9 RATIO (0.9-2.4); AST(SGOT) 88 U/L (15-37); Alanine Aminotransfer ALT/SGPT 64 U/L (13-56); Albumin, Serum 3.8 g/dL (3.2-5.0); Alkaline Phosphatase 100 U/L (45-117); Anion Gap 11 (5-15); BUN 8 mg/dL (7-18); BUN/Creat Ratio 9.2 RATIO (10-20); Calcium,Total 9.9 mg/dL (8.5-10.1); Chloride 104 mmol/L (98-107); Cholesterol 258 mg/dL (200); Creatinine, Serum 0.87 mg/dL (0.55-1.02); EST Glomerular Filtration Rate 71 mL/min (>60); Est Glom Filt Rate - Afr Amer 86 mL/min (>60); Globulin 4.2 g/dL (2.2-4.2); Glucose 143 mg/dL (74-106); High Density Lipoprotein 63 mg/dL; Lipase 39 U/L (13-75); Sodium Level 138 mmol/L (136-145); Triglycerides 183 mg/dL; Very Low Density Lipoprotein 37 mg/dL (5-40)
[2024-07-06 16:21] LABS: Hemoglobin A1c 6.3 % (3.8-5.6)
[2024-07-08 06:09] LABS: GGTP 260 IU/L (0-60)
== END | disposition home or self-care (01) ==
PROVIDERS: PCP Family Medicine; Referring Provider Family Medicine; Visit Provider Family Medicine
DX: E11.65 Type 2 diabetes mellitus with hyperglycemia (principal); K76.0 Fatty (change of) liver, not elsewhere classified
CPT/HCPCS: 36415; 80053; 80061; 82977; 83036; 83690; 85025; 85610

== ENCOUNTER → 2024-10-20 | Outpatient (CLI) | payer OTHER, SELFPAY ==
[2024-10-20 15:23] LABS: Absolute Neutrophil Count 4.4 X10^3/uL (2.0-7.7); Basophil# 0.11 X10^3/uL; Basophil% 1.6 % (0-1); Eosinophil# 0.35 X10^3/uL; Eosinophils% 5.2 % (0-5); Hematocrit 46.6 % (37-47); Hemoglobin 15.8 g/dL (12.0-15.0); Lymphocyte % 19.1 % (19-41); Mean Corp Hgb Conc 33.9 g/dL (32-36); Mean Corpuscular Hgb 31.7 pg (27.0-32.0); Mean Corpuscular Volume 93.6 fL (81-99); Mean Platelet Vol. 11.3 fl (6.2-12.0); Monocyte# 0.62 X10^3/uL; Monocyte% 9.1 % (0-10); NRBC Flagged by Analyzer 0 % (0-5); Neutrophil # 4.38 X10^3/uL (2.7-7.7); Neutrophil % 64.6 % (47-70); Platelet Count 150 K/mm3 (150-450); RBC Distribution Width CV 12.7 % (11.6-14.6); RBC Distribution Width SD 43.3 fl (35.1-43.9); Red Blood Count 4.98 M/mm3 (4.2-5.4); White Blood Count 6.8 K/mm3 (4.4-11.0)
[2024-10-20 15:49] LABS: ALB/GLOB Ratio 0.9 RATIO (0.9-2.4); AST(SGOT) 53 U/L (15-37); Alanine Aminotransfer ALT/SGPT 62 U/L (13-56); Albumin, Serum 3.7 g/dL (3.2-5.0); Alkaline Phosphatase 106 U/L (45-117); Anion Gap 7 (5-15); BUN 12 mg/dL (7-18); CRP 4.85 mg/L (0.0-3.0); Calcium,Total 9.8 mg/dL (8.5-10.1); Chloride 101 mmol/L (98-107); Cholesterol 270 mg/dL (200); EST Glomerular Filtration Rate 60 mL/min (>60); Est Glom Filt Rate - Afr Amer 73 mL/min (>60); Ferritin 296 ng/mL (8-252); Globulin 4.2 g/dL (2.2-4.2); Glucose 246 mg/dL (74-106); High Density Lipoprotein 53 mg/dL; Potassium 4.5 mmol/L (3.5-5.1); Protein, Total 7.9 g/dL (6.4-8.2); Sodium Level 133 mmol/L (136-145); Triglycerides 244 mg/dL; Very Low Density Lipoprotein 49 mg/dL (5-40)
[2024-10-20 16:01] LABS: Erythrocyte Sedimentation Rate 12 mm/hr (0-30); Platelet Morphology 6.8
[2024-10-22 04:07] LABS: GGTP 231 IU/L (0-60)
== END | disposition home or self-care (01) ==
PROVIDERS: PCP Family Medicine; Referring Provider Family Medicine; Visit Provider Family Medicine
DX: E11.9 Type 2 diabetes mellitus without complications (principal); M06.4 Inflammatory polyarthropathy; K76.0 Fatty (change of) liver, not elsewhere classified
CPT/HCPCS: 36415; 80053; 80061; 82728; 82977; 85025; 85652; 86140

== ENCOUNTER 2025-05-12 16:34 | Emergency (ER) | payer OTHER, SELFPAY ==
[2025-05-12] VITALS (8 sets, daily range): BP systolic 100–165; BP diastolic 64–92; PULSE 74–84; RESP 13–27; TEMP 36.6; O2SAT 93–99; BMI 36.6
--- NOTE | 2025-05-12 17:18 | ED.VIS.LOWEX ---
HPI History of Present Illness HPI Narrative: Patient presents with right ankle injury that occurred today. Patient states she was golfing and took a swing while she was standing on the side of a hill. Patient states she fell and twisted her right ankle. Patient states she was unable to bear weight after the fall. Patient describes her pain as aching. Patient states it is worse with movement and better with rest. Patient denies any paresthesias or weakness. Patient denies any head injury or loss of consciousness. Patient denies any other injuries. Chief Complaint: Lower Extremity Injury Informant: patient Occured/Mechanism Mechanism/Context: Yes fall Onset/Context/Timing Onset: Today Context: Onset with activity (Golfing) and Sudden Onset Timing: Continuous Quality of Pain: Aching Location: Right ankle Worsened by: Movement Relieved by: Rest Associated Symptoms Associated Symptoms: Negative for Parasthesia, Weakness or Loss of Funtion [facility] Medical History (Updated 05/12/25 @ 20:[address] Stephon Martinez, DO) Sebaceous cyst History of esophageal ulcer Tobacco use disorder Rheumatoid arthritis Obesity Hypothyroidism Benign hypertension Home Medications ?Medication ?Instructions ?Recorded ?Last Taken ?Type levothyroxine 75 mcg tablet 75 mcg PO DAILY thyroid 06/17/14 05/12/25 History metformin 500 mg tablet 500 mg PO BIDCM blood sugar 06/17/14 05/12/25 History bisoprolol fumarate 5 mg tablet 5 mg PO DAILY bp/ heart rate 07/09/18 05/12/25 History cyclobenzaprine 10 mg tablet 10 mg PO PRN PRN Spasms 07/09/18 07/07/18 History spironolactone 100 mg tablet 100 mg PO DAILY diuretic 07/09/18 07/09/18 History dulaglutide 1.5 mg/0.5 mL 1.5 mg subcut QWEEK 11/10/20 Unknown History subcutaneous pen injector (TrSupercell) Held on 05/12/25. Instructions: MD Ordered insulin lispro 100 unit/mL 20 unit (0.2 mL) subcut TID #54 mL 11/10/20 Unknown Rx subcutaneous pen (Humalog KwikPen (U-100) Insulin) trazodone 50 mg tablet 50 mg PO QHS PRN PRN insomnia 05/12/25 Unknown History Allergy/AdvReac Type Severity Reaction Status Date / Time fluorescein Allergy Severe Anaphylaxis Verified 05/12/25 16:36 fluoxetine (From Prozac) Allergy Mild Nausea Verified 05/12/25 16:36 hydroxychloroquine sulfate Allergy Angioedema Verified 05/12/25 16:36 (From Plaquenil) Family History Father Heart disease Myocardial infarction Mother Hypertension Breast cancer Cancer brain Sister Hypertension Surgical History History of colonoscopy (~2013) Status post laparoscopic Divine fundoplication (~2013) History of repair of ACL History of breast biopsy History of hernia repair (~2014) History of esophagogastroduodenoscopy (EGD) (~2013) Social History Smoking Status: Former smoker ROS ROS ED Constitutional Constitutional ED: Denies chills or fever(s) Eyes Eyes: Denies blurry vision or change in vision ENT ENT ED: Denies rhinorrhea or sore throat Cardiovascular Cardiovascular: Denies chest pain or palpitations Respiratory/Chest Respiratory/Chest: Denies cough or dyspnea Gastrointestinal Gastrointestinal: Denies nausea or vomiting Genitourinary Genitourinary ED: Denies dysuria or hematuria Musculoskeletal Musculoskeletal: Denies back pain or neck pain Integumentary Denies abscess or rash Neurologic Neurologic: Denies headache(s) or weakness Allergic/Immunologic Allergic/Immunologic ED: Denies mouth swelling or urticaria EXAM Physical Exam Const Vital Signs: 05/12/25 16:35 05/12/25 18:13 05/12/25 18:53 Temperature 97.8 F Temperature Source Temporal Pulse Rate 82 Pulse Rate [1 (Initial Baseline)] 84 Pulse Rate [2] 82 Pulse Rate [3] 76 Pulse Rate [4] 80 Respiratory Rate 18 Respiratory Rate [1 (Initial Baseline)] 13 Respiratory Rate [2] 27 H Respiratory Rate [3] 22 H Respiratory Rate [4] 20 H Blood Pressure 119/82 H Blood Pressure [1 (Initial Baseline)] 100/68 Blood Pressure [2] 124/74 H Blood Pressure [3] 108/79 Blood Pressure [4] 134/82 H Blood Pressure Mean 94 Baseline BP Pulse Ox 98 Oxygen Delivery Method Room Air Oxygen Delivery Method [1 (Initial Baseline)] Room Air Oxygen Delivery Method [2] Room Air Oxygen Delivery Method [3] Room Air Oxygen Delivery Method [4] Room Air Oxygen Flow Rate (L/min) [1 (Initial Baseline)] 0 EtCo2 - Document during CPR and with ROSC 30 EtCo2 - Document during CPR and with ROSC [1 (Initial Baseline)] 31 EtCo2 - Document during CPR and with ROSC [2] 31 EtCo2 - Document during CPR and with ROSC [3] 28 EtCo2 - Document during CPR and with ROSC [4] 33 05/12/25 18:54 05/12/25 19:16 05/12/25 19:21 Temperature Temperature Source Pulse Rate 83 77 74 Pulse Rate [1 (Initial Baseline)] Pulse Rate [2] Pulse Rate [3] Pulse Rate [4] Respiratory Rate 16 18 22 H Respiratory Rate [1 (Initial Baseline)] Respiratory Rate [2] Respiratory Rate [3] Respiratory Rate [4] Blood Pressure 122/64 H 114/79 Blood Pressure [1 (Initial Baseline)] Blood Pressure [2] Blood Pressure [3] Blood Pressure [4] Blood Pressure Mean Baseline BP 122/64 Pulse Ox 99 99 97 Oxygen Delivery Method Room Air Room Air Room Air Oxygen Delivery Method [1 (Initial Baseline)] Oxygen Delivery Method [2] Oxygen Delivery Method [3] Oxygen Delivery Method [4] Oxygen Flow Rate (L/min) [1 (Initial Baseline)] EtCo2 - Document during CPR and with ROSC 30 30 EtCo2 - Document during CPR and with ROSC [1 (Initial Baseline)] EtCo2 - Document during CPR and with ROSC [2] EtCo2 - Document during CPR and with ROSC [3] EtCo2 - Document during CPR and with ROSC [4] 05/12/25 19:26 05/12/25 20:34 Temperature Temperature Source Pulse Rate 75 74 Pulse Rate [1 (Initial Baseline)] Pulse Rate [2] Pulse Rate [3] Pulse Rate [4] Respiratory Rate 20 H 22 H Respiratory Rate [1 (Initial Baseline)] Respiratory Rate [2] Respiratory Rate [3] Respiratory Rate [4] Blood Pressure 165/92 H Blood Pressure [1 (Initial Baseline)] Blood Pressure [2] Blood Pressure [3] Blood Pressure [4] Blood Pressure Mean 116 Baseline BP Pulse Ox 95 97 Oxygen Delivery Method Room Air Room Air Oxygen Delivery Method [1 (Initial Baseline)] Oxygen Delivery Method [2] Oxygen Delivery Method [3] Oxygen Delivery Method [4] Oxygen Flow Rate (L/min) [1 (Initial Baseline)] EtCo2 - Document during CPR and with ROSC 31 EtCo2 - Document during CPR and with ROSC [1 (Initial Baseline)] EtCo2 - Document during CPR and with ROSC [2] EtCo2 - Document during CPR and with ROSC [3] EtCo2 - Document during CPR and with ROSC [4] Positive well nourished and well developed General Appearance ED: well developed and NAD HEENT Reports moist mucous membranes Neck full ROM and supple Extremity Extremity Narrative: There is tenderness and edema over the right ankle. It is worse over the lateral aspect of the ankle. There is no bony crepitance or step-off noted. There is no tenderness over the proximal fibula. There is no tenderness over the fifth metatarsal. Range of motion was limited in all motions of the right ankle secondary to pain. Sensation was intact to light touch in all digits. Capillary refill was less than 2 seconds in all digits. Pedal pulses are equal bilaterally. Neuro oriented x3, CN's II-XII intact bilaterally, moves all extremities and no sensory deficits noted Sensorium / Orientation: alert Motor Exam: strength 5/5 throughout Psych mental status grossly normal MDM MDM MDM Narrative Medical decision making narrative: Differential diagnosis includes fracture, sprain, and contusion. X-rays of the right ankle will be obtained to assess for fracture. Radiography Diagnostic Testing: Clinical Impression(s) from Imaging Studies Ankle X-Ray 05/12/25 17:41 IMPRESSION: Highly comminuted and moderately displaced fracture-dislocation injury of the right distal tibial plafond/medial malleolus, lateral malleolus, and talus as described above. Reading Location: [facility] Ankle X-Ray 05/12/25 19:20 IMPRESSION: Interval closed reduction and splinting of the right ankle for aforementioned comminuted right ankle fracture-dislocation injury, with slightly improved osseous alignment. Reading Location: [facility] X-rays of the right ankle were obtained. There are 3 views. On my independent interpretation, there is a fracture of both the medial and lateral malleoli. There is some displacement of the distal fracture fragments medially. Radiologist also interpreted the x-rays and agrees. Repeat x-rays of the right ankle were obtained after reduction and application of the splint. There is some improvement of the alignment of the fracture fragments. Radiologist also interpreted the x-rays and agrees. Management Discussion w/another healthcare provider: Fast Food Crew Lead (Dr. Motta) Treatment and Re-Evaluation Narrative: Patient was given injection of morphine. Informed consent was obtained. Patient is agreeable for conscious sedation and reduction of the ankle. Patient was placed on continuous cardiac and pulse oximeter monitors. Patient was given the opportunity ask any questions. Patient had no further questions. Patient was given a total dose of 130 mg of propofol. After adequate sedation, the ankle was reduced. Patient was placed in a well-padded custom made sugar-tong and posterior splint using 3 inch Ortho-Glass for the sugar-tong splint and 5 inch Ortho-Glass for the posterior splint. Patient tolerated the procedure well. Case was discussed with Dr. Motta from orthopedics. He reviewed the films and stated that the patient would require external fixation. He called back and stated the patient would need to be transferred to a trauma center due to the talar fracture. Patient preferred to go to [facility]. Case was discussed with the transfer center at [facility]. Patient will be transferred to the emergency department there. Patient was accepted to the service of Dr. Cruz in the emergency department and Dr. Figueroa from orthopedics. Patient understood and was agreeable with plan. All questions were answered. Procedures Procedural Sedation 1 (Initial Baseline): Consent Signed: Yes Any Problems With Anesthesia: No You/Your family experience fever (hyperthermia) w/anesthesia: No Sedation medication: Propofol Dose: 130 Route: IV Maliampati Score: Class II ASA Classification: II Discharge Plan Triage Chief Complaint: Lower Extremity Injury ED Provider: Stephon Martinez Dx/Rx/DC Orders Clinical Impression: Closed fracture of distal end of right fibula and tibia, Fall, Fracture of talus of right ankle, closed Prescriptions: No Action Trulicity 1.5 mg/0.5 mL pen injector 1.5 mg SC QWEEK insulin lispro [Humalog KwikPen Insulin] 100 unit/mL insulin pen 20 unit SC TID Qty: 54 1RF metformin 500 MG tablet 500 mg PO BIDCM Patient Comments: ON HOLD PER DR WANG levothyroxine 75 MCG tablet 75 mcg PO DAILY Patient Comments: THYROID bisoprolol fumarate 5 MG tablet 5 mg PO DAILY spironolactone 100 MG tablet 100 mg PO DAILY cyclobenzaprine 10 MG tablet 10 mg PO PRN PRN (Reason: Spasms) trazodone 50 mg tablet 50 mg PO QHS PRN PRN (Reason: insomnia) Primary Care Provider: Stephon Wang Referrals: Stephon Wang MD [Primary Care Provider] - Print Language: Polish Disposition Disposition: Acute Care Hospital Discharge Location: [facility]
--- NOTE | 2025-05-12 17:41 | RAD_ITS ---
PROCEDURE: RIGHT ANKLE MIN 3 VIEWS 05/12/2025 REASON FOR EXAM: INJURY/PAIN TECHNIQUE: RIGHT ANKLE MIN 3 VIEWS COMPARISON: None. FINDINGS: Acute comminuted and moderately displaced intra-articular fracture of the distal tibial plafond/medial malleolus. Transversely oriented mildly displaced fracture of the distal fibula metadiaphysis. Probable small acute avulsion fracture fragments at the distal tip of the fibula also noted. Comminuted impacted fracture of the mid talar body with moderate displacement, which appears to have intra-articular extension to the talar dome and to the subtalar joint, with partial collapse of the subtalar joint space. Significant disruption of the ankle mortise with marked widening of the lateral clear space, and anterolateral dislocation of the distal tibia with respect to the talus. No definite calcaneal or tarsal bone fracture is appreciated. Normal bone mineralization. Marked generalized soft tissue swelling/edema about the ankle. RAD/Ankle min 3 Views IMPRESSION: Highly comminuted and moderately displaced fracture-dislocation injury of the r ight distal tibial plafond/medial malleolus, lateral malleolus, and talus as described above. Reading Location: [id number]
--- NOTE | 2025-05-12 19:20 | RAD_ITS ---
PROCEDURE: RIGHT ANKLE MIN 3 VIEWS 05/12/2025 REASON FOR EXAM: INJURY/PAIN TECHNIQUE: RIGHT ANKLE MIN 3 VIEWS COMPARISON: Same day 05/12/2025 FINDINGS: Interval closed reduction and splinting of the right ankle for previously described comminuted and moderately displaced fractures of the distal tibial plafond/medial malleolus, lateral malleolus, and talus with disruption of the ankle mortise. Osseous alignment is slightly improved with respect to the tibiotalar articulation, otherwise no significant change. Moderate swelling about the ankle. RAD/Ankle min 3 Views IMPRESSION: Interval closed reduction and splinting of the right ankle for aforementioned c omminuted right ankle fracture-dislocation injury, with slightly improved osseous alignment. Reading Location: [id number]
--- NOTE | 2025-05-12 20:54 | PCA ---
CALLED [facility] @ 2040. DISPATCH STATED IT WOULD BE 2-3 HRS ([phone]) EVEN THOUGH PT IS TRAUMA TRANSFER. REQUESTED OUTSOURCING AND CALL BACK IF SUCCESSFUL OR NOT. RECEIVED CALL BACK @ 2056, TRIP OUTSOURCED TO [facility] WITH AN ETA OF 2129.
== END 2025-05-12 21:32 | disposition short-term general hospital (02) ==
PROVIDERS: Emergency Provider Emergency Medicine; PCP Family Medicine; Visit Provider Emergency Medicine
DX: S92.101A Unspecified fracture of right talus, initial encounter for closed fracture (principal); S82.831A Other fracture of upper and lower end of right fibula, initial encounter for closed fracture; S82.301A Unspecified fracture of lower end of right tibia, initial encounter for closed fracture; W17.81XA Fall down embankment (hill), initial encounter; Y93.53 Activity, golf; Z87.891 Personal history of nicotine dependence; E03.9 Hypothyroidism, unspecified; Z79.890 Hormone replacement therapy; I10 Essential (primary) hypertension
CPT/HCPCS: 27840; 73610; 96374; 96375; 96376; 99152; 99284; A4216